=== PATIENT | female | born 1975 | race Caucasian/White ===

== ENCOUNTER 2023-04-19 21:08 | Inpatient (IN) | payer OTHER, SELFPAY ==
[2023-04-19 16:21] VITALS: BP 177/111
[2023-04-19 16:48] LABS: % Basophils 0.3 % (0-2); % Eosinophils 0.6 % (0-6); % Immature Granulocytes 0.3 % (0-0.5); % Monocytes 5.4 % (1.7-9.3); % Neutrophils 75.4 % (42.2-75.2); Absolute Eosinophils 0.1 10^3/uL (0-0.7); Absolute Lymphocytes 2.4 10^3/uL (1.2-3.4); Absolute Monocytes 0.7 10^3/uL (0.1-0.6); Absolute Neutrophils 10.1 10^3/uL (1.4-6.5); Hematocrit 42.5 % (37.0-47.0); Hemoglobin 14.3 g/dL (12.0-16.0); Mean Corp Hgb Conc. 33.6 g/dL (33.0-37.0); Mean Corpuscular Hgb 29.4 pg (27.0-31.0); Mean Corpuscular Volume 87.4 fL (81.0-99.0); Mean Platelet Volume 8.7 fL (7.4-10.4); Nucleated Red Blood Cells % 0 %; Platelet Count 428 10^3/uL (130-400); Red Blood Cell Count 4.86 10^6/uL (4.20-5.40); Red Cell Dist. Width 14.1 % (11.5-14.5); White Blood Cell Count 13.4 10^3/uL (4.8-10.8)
[2023-04-19 17:00] LABS: APTT 26.9 Sec (23.4-35.0)
[2023-04-19 17:03] LABS: ALT (SGPT) 26 U/L (0-35); AST (SGOT) 28 U/L (14-36); Albumin 4.7 g/dl (3.5-5.0); Alkaline Phosphatase 93 U/L (38-126); Blood Urea Nitrogen 18 mg/dl (7-17); Calcium 10.1 mg/dl (8.4-10.2); Carbon Dioxide 21 mmol/L (22-30); Chloride 101 mmol/L (98-107); Glucose 319 mg/dl (70-99); Potassium 4.8 mmol/L (3.5-5.1); Sodium 136 mmol/L (135-145); Total Bilirubin 0.3 mg/dl (0.2-1.3); Total Protein 7.5 g/dl (6.3-8.2); eGFR > 60.00
[2023-04-19 17:15] LABS: Troponin I < 0.012 ng/ml
[2023-04-19 19:23] VITALS: BMI 20.1
[2023-04-19 19:26] VITALS: BP 210/93
--- NOTE | 2023-04-19 19:27 | ED.GENMED ---
History of Present Illness
General
Chief Complaint: Numbness
Source: patient, records (Prior PFO closure) and spouse
Exam Limitations: none
Time Seen by Provider: 04/19/23 19:07
Nursing documentation reviewed up to this point in time: agreed with
Travel History
Have you had any contact with someone who has COVID-19?: No
Do you have any symptoms of coronavirus? Fever > 100 degrees, chills, cough, shortness of breath, sore throat, loss of taste or smell, muscle aches, or headache?: No
History of Present Illness
History of Present Illness:
47-year-old female presents emergency department due to numbness in her left arm since noon. She notes that it is somewhat dissipating. She denies any other symptoms.
Past History
Past History
ED Past Medical History: CVA, HTN, Hypercholesterolemia, NIDDM and Other (migraines); Negative CAD
ED Past Surgical History:
Social History
Tobacco: Smoker
Alcohol: None
Drug: None
Personal:
Living: with family
Employment: Employed
Family History
Family History: Adopted
Review of Systems
Review of Systems
Allergies reviewed?: Yes
All Other Systems: Not applicable
Constitutional: Reports no symptoms
EENT: Reports no symptoms
Respiratory: Reports no symptoms
Cardiac: Reports no symptoms
ABD/GI: Reports no symptoms
: Reports no symptoms
Musculoskeletal: Reports no symptoms
Skin: Reports no symptoms
Neurological: Reports numbness
Endocrine: Reports no symptoms
Hematologic/Lymphatic: Reports no symptoms
Psychiatric: Reports no symptoms
Phy Exam
Physical Exam
Physical Exam:
Physical Exam
General: no apparent distress, not acutely ill
Neck: supple. no meningeal signs. normal posterior pharynx
Heart: s1/s2 regular rate and rhythm, no murmur. equal radial
pulses.
HEENT: Pupils equal round reactive to light, EOMI
Lungs: no acute respiratory distress. clear bilaterally
Abdomen: normal bowel sounds. not tender. no CVAT
Neuro: alert and oriented. no focal neurological deficits cranial nerves II through XII intact
Skin: no rash
Psychiatric: well kept. interactive and cooperative
Extremities: no edema. no calf tenderness. negative homans. good distal pulses
Scores
NIH Stroke Score
Level of Consciousness: 0 - Alert
LOC Questions: 0-Answers both correctly
LOC Commands: 0-Performs both correctly
Best Horizontal Gaze: 0-Normal
Visual Lewis: 0=Normal, no visual loss
Facial Palsy: 0=Normal, symmetrical
Motor - Right Arm: 0=No drift 10 seconds
Motor - Left Arm: 0=No drift 10 seconds
Motor - Right Le-No drift 5 seconds
Motor - Left Le-No drift 5 seconds
Limb Ataxia: 0-Absent
Sensation: 0-Normal
Best Language: 0-No aphasia
Dysarthria: 0-Normal
Extinction and Inattention: 0-No abnormality
Total Score:: 0
Course
Orders/Labs/Results
Orders:
Orders
04/19/23 16:25
Electrocardiogram (*1) Urgent
Reason for Study: Other
Other Reason for Exam: Possible Stroke
CT Head W/o Iv Contrast Urgent
Comment:
Reason For Exam: numbness
EKG- Treatment ONCE
04/19/23 16:39
Complete Blood Count/With Diff Urgent
Comprehensive Metabolic Panel Urgent
PTT Urgent
Prothrombin Time Urgent
Troponin I Urgent
04/19/23 20:05
Aspirin Chewable [Low Strength Aspirin] 324 mg PO NOW STA
Clopidogrel Bisulfate [Plavix] 75 mg PO NOW STA
Labetalol HCl [Trandate] 10 mg IV NOW STA
04/19/23 20:06
Atorvastatin [Lipitor] 80 mg PO NOW STA
04/19/23 20:57
Admit/Transfer Patient As Directed
Co-Sign Provider:
Level of Care: Inpatient admission
Assign to:: Telemetry
Physician / Group: morena
Diagnosis: TIA/CVA
Reason for Telemetry: CVA/TIA
Date to Stop Telemetry: 04/22/23
Time to Stop Telemetry: 11:00
Reason for Hospitalization: TIA/CVA
Expected length of stay greater than two midnights?: Yes
ELOS- Estimated Length of Stay in days: 2
I certify the patient meets the requirements for IP care: Yes
04/19/23 20:58
Code Status As Directed
Resuscitation Status: Full Code
04/19/23 21:01
Labetalol HCl [Trandate] 10 mg IV Q6HPRN PRN
04/19/23 21:08
NEUROLOGY CONSULT Routine
Consulting Provider: Bre Saravia
Was physician already notified: Yes
04/22/23 11:00
DC Protocol for Telemetry ONCE
Abnormal Lab Results
04/19/23
16:39
WBC 13.4 H 10^3/uL
(4.8-10.8)
Plt Count 428 H 10^3/uL
(130-400)
Absolute Neuts (auto) 10.1 H 10^3/uL
(1.4-6.5)
Absolute Monos (auto) 0.7 H 10^3/uL
(0.1-0.6)
Neutrophils % 75.4 H %
(42.2-75.2)
Lymphocytes % 18.0 L %
(20.5-51.1)
Carbon Dioxide 21 L mmol/L
(22-30)
BUN 18 H mg/dl
(7-17)
Glucose 319 H mg/dl
(70-99)
04/19/23 16:39
04/19/23 16:39
Vital Signs
Initial and Last Documented VS:
Initial Vital Signs
Temp Pulse Resp BP Pulse Ox
97.7 F 125 18 177/111 98
04/19/23 16:21 04/19/23 16:21 04/19/23 16:21 04/19/23 16:21 04/19/23 16:21
Last Documented Vital Signs
Temp Pulse Resp BP Pulse Ox
97.7 F 88 18 176/98 98
04/19/23 16:21 04/19/23 21:30 04/19/23 21:30 04/19/23 21:00 04/19/23 20:15
MDM/Problems Addressed
Differential Diagnosis Includes:
Acute CVA
MDM/Problems Addressed:
47-year-old female with likely acute CVA versus TIA. Discussed with neurology, who recommends aspirin and Plavix, and high-dose statin. Initially admitted patient to hospitalist, and she left AGAINST MEDICAL ADVICE. Precautions given.
Chronic conditions affecting care: DM and Neurological disorder (Prior CVA)
Acute Exacerbation and/or Progression of Chronic Illness: DM and Neurological disorder (Prior CVA)
*Radiology
Radiology exam reviewed: radiology read reviewed (CT head no acute findings)
*Pulse Oximetry
Patient hypoxic: no
*EKG
Interpreted by ED Provider?: Yes
EKG Intrepretation Date: 04/20/23
EKG Intrepretation Time: 16:42
Interpretation: abnormal
Comparison EKG: no changes
Heart Rate: 103
Rate: tachycardiac
Rhythm: sinus tachycardia
[place]: normal axis
Interval: normal interval
QRS Pattern: normal QRS
Ischemia: no ischemia
*Inner Diameter Grinder Tool Interpretation
Rate: tachycardiac
Interpretation: abnormal
Heart Rate: 102
Rhythm: sinus tachycardia
*Critical Care Note
Total Time (30-74mins, 75-104mins- exclusive of procedures): Not Applicable
Data Reviewed
Review of Other/Old Records Reveals: Radiology Studies
Source: records (prior mri shows left internal capsule infarct)
Prescriptions/Medications Considered But Not Given:
tnk not indicated
Patient Management
Social determinants of health affecting care: Living situation and Substance abuse
Discussion with other providers: Hospitalist and Watermaster (neurology Dr. Saravia)
Escalation/DeEscalation of care consider admission/obs:
admit indicated, patient left AMA
ED Attending Note
-
Portions of this chart may have been created with voice recognition software.� Occasional wrong word or��sound alike� substitutions may have occurred due to the inherent limitations of voice recognition software.
Discharge Plan
Departure
Patient Disposition: Against Medical Advice
Date of Disposition: 04/19/23
Time of Disposition: 22:13
Patient with high blood pressure during this ER visit?: Yes
Condition: Good
Discharge Problem:
Acute CVA (cerebrovascular accident), Hypertensive urgency, malignant
Interventions
Interventions:
*Risk Screen - Suicide Last Done: 04/19/23 19:27
*General Assessment Last Done: 04/19/23 16:21
*Neglect/Abuse Screening Last Done: 04/19/23 19:27
ED- Fall Risk Assessment Last Done: 04/19/23 19:15
*ED COVID-19 Vaccine History Last Done: 04/19/23 16:21
*Nursing Disposition Last Done: 04/19/23 22:15
ED- Neurological Assessment Last Done: 04/19/23 19:18
Discharge Date and Time
Discharge Date/Time: 04/19/23 22:18
[2023-04-19 20:00] VITALS: BP 174/93
[2023-04-19] MEDS: LOW STRENGTH ASPIRIN 324 MG PO (20:11)
[2023-04-19] MEDS: TRANDATE 10 MG IV (20:11)
[2023-04-19] MEDS: PLAVIX 75 MG PO (20:11)
[2023-04-19 21:00] VITALS: BP 176/98
--- NOTE | 2023-04-19 21:06 | HPS.HSE ---
Family Physician
-
Family Physician: Kurtis López, DO
Chief Complaint
-
numbness left forearm
History of Present Illness
47-year-old female past medical history of left internal capsule cryptogenic CVA in 2019, PFO status post PFO closure in 2020, migraines, hypertension, type 2 diabetes, tobacco use disorder, presenting with numbness in her left arm since 12 PM.
Numbness primarily in the left forearm to the shoulder without involving the hand. She also had some weakness with slope tender strength. Symptoms resolved after 6 hours.
She did have a migraine this morning which resolved after she took a nap. She denies any blurry vision, balance dysfunction, difficulty speaking or swallowing.
Patient states that her blood sugar was in the 300s today. She has a Dexcom and her blood sugars tend to be higher in the morning and also fluctuate.
Patient was found strokes on brain imaging performed in 2019 to evaluate migraine. She did not have any symptoms at that time. She was found to have PFO at that time and underwent PFO closure. She also had a loop recorder afterwards which did not
show any cardiac events and it was eventually removed.
She smokes 5 cigarettes a day. She drinks alcohol occasionally. She denies marijuana or any drugs.
Medical History
Past Medical History
Past Medical History: Reports Other (left internal capsule cryptogenic CVA in 2019, PFO status post PFO closure in 2020, migraines, hypertension, type 2 diabetes, tobacco use disorder)
Past Surgical History: Reports Other (PFO closure )
Social History
Tobacco: Smoker
Alcohol: Occasional
Drug: None
Family History
Family History: Not pertinent
Allergies / Home Medications
Allergies reflects when Allergies were last updated in [employer].
Home Medications with original date entered in [employer]
Allergy/Medication List:
Allergies
Allergy/AdvReac Type Severity Reaction Status Date / Time
No Known Allergies Allergy Verified 04/19/23 16:23
Home Medications
diphenhydramine HCl 25 mg capsule (ZzzQuil) 50 mg PO HS Sleep ##0 06/22/20
insulin glargine 100 unit/mL (3 mL) subcutaneous pen (Lantus Solostar U-100 Insulin) 5 units SC HS 08/19/21
metformin 500 mg tablet 500 mg PO BID@0800,1700 Diabetes 08/19/21
repaglinide 2 mg tablet 4 mg PO .AFTER MEALS 08/19/21
rosuvastatin 10 mg tablet 10 mg PO DAILY 08/19/21
cyanocobalamin (vitamin B-12) 1,000 mcg sublingual tablet 1,000 mcg sublingual DAILY 11/20/21
diphenhydramine HCl 25 mg capsule (Benadryl) 75 mg PO HSPRN PRN sleep 11/20/21
naratriptan 2.5 mg tablet 2.5 mg PO BID PRN migraine 04/19/23
rimegepant 75 mg disintegrating tablet (Nurtec ODT) 75 mg PO Q48H 04/19/23
Review of Systems
-
History Source: Patient
A 12 point ROS was completed and negative except as noted: Yes
Constitutional: Reports No Symptoms
EENT: Reports No Symptoms
Respiratory: Reports No Symptoms
Cardiac: Reports No Symptoms
Abdomen/GI: Reports No Symptoms
: Reports No Symptoms
Musculoskeletal: Reports No Symptoms
Skin: Reports No Symptoms
Neurological: Reports See HPI
Endocrine: Reports No Symptoms
Hematologic/Lymphatic: Reports No Symptoms
Psych: Reports No Symptoms
Physical Exam
Vital Signs
Vital Signs
Temp Pulse Resp BP Pulse Ox
97.7 F 101 18 174/93 98
04/19/23 16:21 04/19/23 20:15 04/19/23 20:15 04/19/23 20:00 04/19/23 20:15
Physical Exam
General: Well Developed, Well Nourished and No Apparent Distress
HEENT: NormoCephalic, Moist mucous membranes and Atraumatic
Respiratory: Clear
Cardiac: S1/S2 and Regular Rhythm; No Murmur or Rub
GI: Soft, Non Tender, Non Distended and Normal Bowel Sounds; No Organomegaly
Rectal: Deferred by Provider
Musculoskeletal: No Clubbing, No Cyanosis and No Edema
Skin: No Rash
Neuro: Nonfocal/grossly intact
Laboratory Results
-
04/19/23 16:39
04/19/23 16:39
Laboratory Results
PT 13.0 Sec (11.4-14.6) 04/19/23 16:39
INR 1.00 04/19/23 16:39
APTT 26.9 Sec (23.4-35.0) 04/19/23 16:39
Total Bilirubin 0.3 mg/dl (0.2-1.3) 04/19/23 16:39
AST 28 U/L (14-36) 04/19/23 16:39
ALT 26 U/L (0-35) 04/19/23 16:39
Alkaline Phosphatase 93 U/L (38-126) 04/19/23 16:39
Troponin I < 0.012 ng/ml 04/19/23 16:39
Data Reviewed
-
Lab Data: Labs Reviewed by me
Old Records: Reviewed
Impression/Plan
-
IMPRESSION:
PLAN:
# TIA vs possible CVA
# History of cryptogenic left internal capsule CVA in 2019
# PFO status post PFO closure
-CT head shows no acute abnormality
- Aspirin and Plavix given, continue daily
-80 mg atorvastatin started
-Check A1c and lipid panel
-Check MRI/MRA head and neck
-Neurology consulted
# Hypertensive urgency
-IV labetalol given
-Permissive hypertension up to 220/110 until tomorrow
-No longer on blood pressure medications which she was previously on
History of migraines
-Continue Nurtec
-Continue as needed naratriptan
-Continue nightly Benadryl
# Hyperglycemia
#Type 2 diabetes
-Check hemoglobin A1c
-Continue metformin
-Continue Lantus 5 units
-Hold repaglinide with meals
-Insulin sliding scale instead
Tobacco use disorder
-Smokes 5 cigarettes a day
-Nicotine patch
B12 deficiency
-Continue B12
Full code
DVT prophylaxis�SCDs
Regular diet
== END 2023-04-19 22:20 | disposition left against medical advice (07) | DRG 66 ==
LOC: ED 21:08
PROVIDERS: Emergency Medicine; ADMITTING PHYSICIAN Hospitalist; EMERGENCY PHYSICIAN Emergency Medicine; FAMILY PHYSICIAN Family Medicine
DX: I63.9 Cerebral infarction, unspecified (principal); I16.0 Hypertensive urgency; F17.210 Nicotine dependence, cigarettes, uncomplicated; E11.65 Type 2 diabetes mellitus with hyperglycemia; E53.8 Deficiency of other specified B group vitamins; I10 Essential (primary) hypertension
CPT/HCPCS: 70450; 80053; 84484; 85025; 85610; 85730; 93005; 96374; 99285

== ENCOUNTER 2023-04-24 22:15 | Inpatient (IN) | payer OTHER, SELFPAY ==
[2023-04-24] VITALS (8 sets, daily range): BP systolic 163–201; BP diastolic 82–99
[2023-04-24 16:32] LABS: % Basophils 0.3 % (0-2); % Eosinophils 0.7 % (0-6); % Immature Granulocytes 0.4 % (0-0.5); % Lymphocytes 19.2 % (20.5-51.1); % Neutrophils 74.4 % (42.2-75.2); Absolute Eosinophils 0.1 10^3/uL (0-0.7); Absolute Immature Granulocytes 0.1 10^3/uL (0-0.05); Absolute Lymphocytes 2.7 10^3/uL (1.2-3.4); Absolute Monocytes 0.7 10^3/uL (0.1-0.6); Absolute Neutrophils 10.3 10^3/uL (1.4-6.5); Hematocrit 40.1 % (37.0-47.0); Hemoglobin 13.4 g/dL (12.0-16.0); Mean Corp Hgb Conc. 33.4 g/dL (33.0-37.0); Mean Corpuscular Hgb 29.1 pg (27.0-31.0); Mean Corpuscular Volume 87.2 fL (81.0-99.0); Mean Platelet Volume 8.7 fL (7.4-10.4); Nucleated Red Blood Cells % 0 %; Platelet Count 430 10^3/uL (130-400); White Blood Cell Count 13.8 10^3/uL (4.8-10.8)
[2023-04-24 16:43] LABS: ALT (SGPT) 25 U/L (0-35); AST (SGOT) 24 U/L (14-36); Albumin 4.4 g/dl (3.5-5.0); Alkaline Phosphatase 81 U/L (38-126); Blood Urea Nitrogen 17 mg/dl (7-17); Calcium 10.2 mg/dl (8.4-10.2); Carbon Dioxide 27 mmol/L (22-30); Chloride 97 mmol/L (98-107); Glucose 408 mg/dl (70-99); Potassium 5.4 mmol/L (3.5-5.1); Sodium 136 mmol/L (135-145); Total Bilirubin 0.4 mg/dl (0.2-1.3); Total Protein 7.1 g/dl (6.3-8.2); eGFR > 60.00
--- NOTE | 2023-04-24 19:01 | ED.GENMED ---
History of Present Illness
General
Chief Complaint: Numbness
Source: patient
Exam Limitations: none
Time Seen by Provider: 04/24/23 18:47
Travel History
Have you had any contact with someone who has COVID-19?: No
Do you have any symptoms of coronavirus? Fever > 100 degrees, chills, cough, shortness of breath, sore throat, loss of taste or smell, muscle aches, or headache?: No
History of Present Illness
History of Present Illness:
This is a 47 year old female that comes in with c/o right sided arm numbness. States that she was here on Saturday with Left sided arm numbness and they wanted her to stay but she left. State that this started last night and has continued. States that
she awoke this morning with a Migraine and she took Excedrin, Tylenol and Naratriptan and he headache is gone. Denies any fever, chills, chest pain, SOB, abd pain, nausea, vomiting, diarrhea, dizziness, urinary burning.
Past History
Past History
ED Past Medical History: CVA (X 2), HTN, Hypercholesterolemia, IDDM and Other (migraines); Negative CAD
ED Past Surgical History: Cardiac (Loop recorder and then it was removed, Closure of PFO), , Gynecological (Lap for precancerous cervical cells, ) and Orthopedic (Left great toe surgery, )
Social History
Tobacco: Smoker
Alcohol: Occasional
Drug: None
Personal:
Living: with family
Employment: Employed
Family History
Family History: Adopted
Review of Systems
Review of Systems
All Other Systems: ROS reviewed and negative except as documented in HPI and ROS
Constitutional: Reports no symptoms; Denies fever or chills
EENT: Reports no symptoms
Respiratory: Reports no symptoms; Denies cough or trouble breathing
Cardiac: Reports no symptoms; Denies chest pain
ABD/GI: Reports no symptoms; Denies abdominal pain, nausea, vomiting or diarrhea
: Reports no symptoms; Denies dysuria, frequency or urgency
Musculoskeletal: Reports no symptoms
Skin: Reports no symptoms
Neurological: Reports headache and numbness (Right arm)
Psychiatric: Reports no symptoms
Phy Exam
General Physical Exam
General Presentation: well appearing and no apparent distress
General age: appears stated age
General Skin: warm and dry
General Habitus: normal
General Mental: alert
General Hydration: appears well hydrated
ENT Exam
ENT Exam: TM's normal, pharynx normal and neck supple
Eye Exam
Eye Exam: EOMI
Cardiovascular Exam
Cardiovascular Exam: regular rate/rhythm, no edema, no JVD, no murmur and normal peripheral pulses
Pulmonary Exam
Pulmonary Exam: lungs clear, no respiratory distress, no rales, chest non tender, no crackles, no rhonchi, no wheezing and no cough
Gastrointestinal Exam
Gastrointestinal Exam: normal bowel sounds, non tender, soft, no organomegaly, no pulsatile mass and non distended
NIH Stroke Score
Level of Consciousness: 0 - Alert
LOC questions: 0-Answers both correctly
LOC Commands: 0-Performs both correctly
Best Gaze: 0-Normal
Visual Lewis: 0=Normal, no visual loss
Facial palsy: 0=Normal, symmetrical
Motor - Right Arm: 0=No drift 10 seconds
Motor - Left Arm: 0=No drift 10 seconds
Motor - Right Le-No drift 5 seconds
Motor - Left Le-No drift 5 seconds
Limb Ataxia: 0-Absent
Sensation: 0-Normal
Best Language: 0-No aphasia
Dysarthria: 0-Normal
Extinction and Inattention: 0-No abnormality
Total Score:: 0
Musculoskeletal Exam
Musculoskeletal Exam: full ROM, no edema and other (Hand grasp and push pulls equal)
Skin Exam
Skin Exam: normal color, warm/dry, no rash and no petechia
Psychiatric Exam
Psychiatric Exam: normal mood/affect
Course
Orders/Labs/Results
Orders:
Orders
04/24/23 16:05
Electrocardiogram (*1) Urgent
Reason for Study: Chest Pain
EKG- Treatment ONCE
04/24/23 16:22
Complete Blood Count/With Diff Urgent
Comprehensive Metabolic Panel Urgent
04/24/23 19:00
0.9% Sodium Chloride 1000 ml [Nss] 1,000 ml IV BOLUS
04/24/23 19:01
CT Head W/o Iv Contrast Urgent
Comment:
Reason For Exam: Right arm numbness
04/24/23 20:28
Aspirin 325 mg PO NOW STA
Clopidogrel Bisulfate [Plavix] 300 mg PO NOW STA
04/24/23 20:30
Consult Neurology [NEUROLOGY CONSULT] Urgent
Consulting Provider: Ubaldo Benavides
Was physician already notified: Yes
04/24/23 21:02
MR Brain W/o & With Contrast Routine
Comment:
Reason For Exam: Eval ? left frontal infarct, Ddx MS
Recent pill cam endoscopy?: No
04/24/23 21:03
MA [facility] Wo Routine
Comment:
Reason For Exam: intracranial stenosis
Recent pill cam endoscopy?: No
MA Neck With & W/o Contrast Routine
Comment:
Reason For Exam: stenosis
Recent pill cam endoscopy?: No
04/24/23 21:05
Echo 2D MMode Color/Doppler Routine
Reason for Study: Thrombotic source for stroke-like sxs
NIH Stroke Scale As Directed
Neurological Checks As Directed
Frequency: Per unit guidelines
04/24/23 21:46
Admit/Transfer Patient As Directed
Co-Sign Provider:
Level of Care: Inpatient admission
Assign to:: Telemetry
Physician / Group: veldanda
Diagnosis: cva
Reason for Telemetry: CVA/TIA
Date to Stop Telemetry: 04/27/23
Time to Stop Telemetry: 11:00
Reason for Hospitalization: cva
Expected length of stay greater than two midnights?: Yes
ELOS- Estimated Length of Stay in days: 2
I certify the patient meets the requirements for IP care: Yes
Code Status As Directed
Resuscitation Status: Full Code
04/24/23 21:55
Labetalol HCl [Trandate] 10 mg IV NOW STA
04/24/23 21:57
Labetalol HCl [Trandate] 10 mg IV Q6HPRN PRN
04/24/23 22:00
Atorvastatin [Lipitor] 80 mg PO QPM
Flush (0.9% Sodium Chloride) [Flush (Nss)] See Dose Instructions IV PER PROTOCOL
04/24/23 22:41
Acetaminophen [Tylenol/Feverall] 650 mg RECTAL Q4HPRN PRN
Acetaminophen [Tylenol] 650 mg PO Q4HPRN PRN
Dextrose 50%-Water [Dextrose 50% Syringe] 12.5 grams IV [id number] PRN
Diphenhydramine [Benadryl] 50 mg PO HS
Diphenhydramine [Benadryl] 75 mg PO HSPRN PRN
Glucagon [GlucaGen] 1 mg IM PRN PRN
insulin glargine [Lantus Solostar U-100 Insulin] 5 units SC HS
naratriptan 0 mg PO BIDPRN PRN
04/24/23 22:41
Glycohemoglobin (HgbA1c) Routine
Activity As Directed
Activity Level: As Tolerated
Bedside Glucose Monitoring As Directed
Frequency: AC&HS
Comment: Change to q6h if pt on TPN, tube feeding or not eating
NIH Stroke Scale As Directed
Directions: Per protocol
Comment: every shift and with any change in condition or mental status
Neurological Checks As Directed
Frequency: q4h
Additional Instructions:: q4h x 24h upon admission to the floor, then qshift & with any change in condition
and mental status
Patient Education As Directed
Type: Stroke education packet
Comment: provide to patient and family
Pneumatic Compression Sleeves As Directed
Type: Knee high
Vital Signs As Directed
Frequency: Per unit guidelines
DX Deep Vein Thrombosis Video Routine
04/25/23 06:00
[id number] Panel [S] IN AM
Cardiolipin Ab Panel [S] IN AM
Cardiovascular Evaluation IN AM
Complete Blood Count/With Diff IN AM
04/25/23 07:30
Insulin Aspart Corrective Low [Novolog Flexpen-Low Resistance] See Protocol SC AC
04/25/23 08:00
Aspirin Chewable [Low Strength Aspirin] 81 mg PO DAILY
Clopidogrel Bisulfate [Plavix] 75 mg PO DAILY
Cyanocobalamin [Vitamin B-12] 1,000 mcg PO DAILY
METFORMIN HCl [Glucophage] 500 mg PO BID@0800,1700
04/25/23 09:00
Repaglinide [Prandin] 4 mg PO PC
04/26/23 08:00
rimegepant [Nurtec ODT] 0 mg PO Q48H
04/27/23 11:00
DC Protocol for Telemetry ONCE
Abnormal Lab Results
04/24/23
16:22
WBC 13.8 H 10^3/uL
(4.8-10.8)
Plt Count 430 H 10^3/uL
(130-400)
Abs Immat Gran (auto) 0.1 H 10^3/uL
(0-0.05)
Absolute Neuts (auto) 10.3 H 10^3/uL
(1.4-6.5)
Absolute Monos (auto) 0.7 H 10^3/uL
(0.1-0.6)
Lymphocytes % 19.2 L %
(20.5-51.1)
Potassium 5.4 H mmol/L
(3.5-5.1)
Chloride 97 L mmol/L
(98-107)
Glucose 408 H mg/dl
(70-99)
04/24/23 16:22
04/24/23 16:22
Leukocytosis, Plt slightly elevated. Hyperkalemia, Chloride slighlty low. Glucose nonfasting. Anion gap 12
Vital Signs
Initial and Last Documented VS:
Initial Vital Signs
Temp Pulse Resp BP Pulse Ox
98.8 F 105 20 177/99 96
04/24/23 15:58 04/24/23 15:58 04/24/23 15:58 04/24/23 15:58 04/24/23 15:58
Last Documented Vital Signs
Temp Pulse Resp BP Pulse Ox
98.8 F 95 16 170/90 96
04/24/23 15:58 04/25/23 00:45 04/25/23 00:45 04/25/23 00:37 04/25/23 00:45
MDM/Problems Addressed
Differential Diagnosis Includes:
CVA, Parasthesias
MDM/Problems Addressed:
This is a 47 year old female that comes in with c/o right arm numbness. States that she was her on Saturday with left arm numbness and they wanted to keep patient but she went home. Today she awoke with a migraine and then started with left arm
numbness.
Will check labs, CT head and then speak to Neurologist.
Back into see patient. Explained that the CT is questionable about a new area of Infarct. Will admit patient for further evaluation and MRI. Hospitalist and Neurologist notified.
Chronic conditions affecting care: Other (CVA)
Acute Exacerbation and/or Progression of Chronic Illness: Other (CVA)
*Radiology
Radiology exam reviewed: radiology read reviewed (CT small focus of hypoattenuation in the left frontal lobe periventricular white matter, possible chronic although cannot rule out subacute white matter infarct and MRI would be of greater
sensitivity, if Clinically Indicated. NO acute transcortical infarct or hemorrhage by CT. )
*Pulse Oximetry
Patient hypoxic: no
*EKG
Interpreted by ED Provider?: Yes
Heart Rate: 104
Rate: tachycardiac
Rhythm: sinus
[place]: normal axis
Interval: normal interval
QRS Pattern: normal QRS
Ischemia: no ischemia
*Wall And Floor Tiler Interpretation
Rate: Wall And Floor Tiler- N/A
*Critical Care Note
Total Time (30-74mins, 75-104mins- exclusive of procedures): Not Applicable
ED Attending Note
-
Portions of this chart may have been created with voice recognition software.� Occasional wrong word or��sound alike� substitutions may have occurred due to the inherent limitations of voice recognition software.
Discharge Plan
Departure
Patient Disposition: Admit
Date of Disposition: 04/24/23
Time of Disposition: 20:30
Admit to: Med/Surg
Presentation/result/management discussed w/ accepting MD/DO: Hospitalist
Patient with high blood pressure during this ER visit?: Yes
Condition: Good
Covid-19: Not Applicable
Discharge Problem:
Right arm numbness, Possible CVA, Hyperglycemia
Interventions
Interventions:
*Risk Screen - Suicide Last Done: 04/24/23 15:58
*General Assessment Last Done: 04/24/23 15:58
*Neglect/Abuse Screening Last Done: 04/24/23 15:58
ED- Fall Risk Assessment Last Done: 04/24/23 20:09
*ED COVID-19 Vaccine History Last Done: 04/24/23 20:09
*Nursing Disposition Last Done: 04/25/23 00:16
ED- Neurological Assessment Last Done: 04/25/23 00:47
[2023-04-24] MEDS: NSS 1000 IV (19:39)
[2023-04-24] MEDS: ASPIRIN 325 MG PO (20:56)
[2023-04-24] MEDS: PLAVIX 300 MG PO (20:56)
--- NOTE | 2023-04-24 21:52 | HPS.HSE ---
Family Physician
-
Family Physician: Kurtis López, DO
Chief Complaint
-
right arm weakness
History of Present Illness
47-year-old female past medical history of left internal capsule cryptogenic CVA in 2019, PFO status post PFO closure in 2020, migraines, hypertension, type 2 diabetes, tobacco use disorder, who came to the emergency room 5 days ago for left arm
numbness and weakness which resolved after 6 hours. Patient left from the emergency room despite being urged to stay.
Patient states today she developed right arm numbness unlike last time and she again woke up this morning with a migraine and took Excedrin, Tylenol and naratriptan and now headache is gone. The numbness is currently improved. She denies any
visual symptoms, focal weakness, dizziness, difficulty speaking or swallowing, gait dysfunction.
Patient was found strokes on brain imaging performed in 2019 to evaluate migraine. She did not have any symptoms at that time. She was found to have PFO at that time and underwent PFO closure. She also had a loop recorder afterwards which did not
show any cardiac events and it was eventually removed.
She smokes 5 cigarettes a day. She drinks alcohol occasionally. She denies marijuana or any drugs.
Medical History
Past Medical History
Past Medical History: Reports Other (Cardiac (Loop recorder and then it was removed, Closure of PFO), , Gynecological (Lap for precancerous cervical cells, ) and Orthopedic (Left great toe surgery, ))
Past Surgical History: Reports None
Social History
Tobacco: Smoker
Alcohol: Occasional
Drug: None
Family History
Family History: Not pertinent
Allergies / Home Medications
Allergies reflects when Allergies were last updated in [facility].
Home Medications with original date entered in [facility]
Allergy/Medication List:
Allergies
Allergy/AdvReac Type Severity Reaction Status Date / Time
No Known Allergies Allergy Verified 04/19/23 16:23
Home Medications
diphenhydramine HCl 25 mg capsule (ZzzQuil) 50 mg PO HS Sleep ##0 06/22/20
insulin glargine 100 unit/mL (3 mL) subcutaneous pen (Lantus Solostar U-100 Insulin) 5 units SC HS 08/19/21
metformin 500 mg tablet 500 mg PO BID@0800,1700 Diabetes 08/19/21
repaglinide 2 mg tablet 4 mg PO .AFTER MEALS 08/19/21
rosuvastatin 10 mg tablet 10 mg PO DAILY 08/19/21
cyanocobalamin (vitamin B-12) 1,000 mcg sublingual tablet 1,000 mcg sublingual DAILY 11/20/21
diphenhydramine HCl 25 mg capsule (Benadryl) 75 mg PO HSPRN PRN sleep 11/20/21
naratriptan 2.5 mg tablet 2.5 mg PO BID PRN migraine 04/19/23
rimegepant 75 mg disintegrating tablet (Nurtec ODT) 75 mg PO Q48H 04/19/23
Review of Systems
-
History Source: Patient
A 12 point ROS was completed and negative except as noted: Yes
Constitutional: Reports No Symptoms
EENT: Reports No Symptoms
Respiratory: Reports No Symptoms
Cardiac: Reports No Symptoms
Abdomen/GI: Reports No Symptoms
: Reports No Symptoms
Musculoskeletal: Reports No Symptoms
Skin: Reports No Symptoms
Neurological: Reports See HPI
Endocrine: Reports No Symptoms
Hematologic/Lymphatic: Reports No Symptoms
Psych: Reports No Symptoms
Physical Exam
Vital Signs
Vital Signs
Temp Pulse Resp BP Pulse Ox
98.8 F 95 18 180/92 98
04/24/23 15:58 04/24/23 21:36 04/24/23 21:36 04/24/23 21:36 04/24/23 20:23
Physical Exam
General: Well Developed, Well Nourished and No Apparent Distress
HEENT: NormoCephalic, Moist mucous membranes and Atraumatic
Respiratory: Clear
Cardiac: S1/S2 and Regular Rhythm; No Murmur or Rub
GI: Soft, Non Tender, Non Distended and Normal Bowel Sounds; No Organomegaly
Rectal: Deferred by Provider
Musculoskeletal: No Clubbing, No Cyanosis and No Edema
Skin: No Rash
Neuro: Nonfocal/grossly intact
Laboratory Results
-
04/24/23 16:22
04/24/23 16:22
Laboratory Results
Total Bilirubin 0.4 mg/dl (0.2-1.3) 04/24/23 16:22
AST 24 U/L (14-36) 04/24/23 16:22
ALT 25 U/L (0-35) 04/24/23 16:22
Alkaline Phosphatase 81 U/L (38-126) 04/24/23 16:22
Data Reviewed
-
Lab Data: Labs Reviewed by me
Old Records: Reviewed
Impression/Plan
-
IMPRESSION:
PLAN:
# Likely new CVA/TIA
# History of cryptogenic left internal capsule CVA in 2019
# PFO status post PFO closure
-CT head shows small focus of hypoattenuation in the left frontal lobe periventricular white matter possibly chronic although cannot rule out subacute white matter infarct
- Aspirin and Plavix given, continue daily
-80 mg atorvastatin started
-Check A1c and lipid panel
-Check MRI/MRA head and neck
-echo
-Neurology consulted
# Hypertensive urgency
-IV labetalol to be given
-No longer on blood pressure medications which she was previously on
History of migraines
-Continue Nurtec
-Continue as needed naratriptan
-Continue nightly Benadryl
# Hyperglycemia
#Type 2 diabetes
-Blood sugar 400 which patient does not believe since sugar was 170 immediately after when she checked her Dexcom
-Check hemoglobin A1c
-Continue metformin
-Continue Lantus 5 units
-Continue repaglinide
-Insulin sliding scale
# Hyperkalemia possibly secondary to insulin deficiency
-IV fluids given
Tobacco use disorder
-Smokes 5 cigarettes a day
-Nicotine patch
B12 deficiency
-Continue B12
Insomnia
-Continue Benadryl
Full code
DVT prophylaxis�SCDs
Diabetic Diet
[2023-04-24] MEDS: TRANDATE 10 MG IV (22:08)
--- NOTE | 2023-04-24 22:52 | EDRN ---
Pt. requesting to take own home metformin and repeglanide as pharmacy still processing her nighttime meds, admitting aware and okay with this, pt. took home metformin and repeglanide.
[2023-04-24] MEDS: BENADRYL 50 MG PO (23:50)
[2023-04-24] MEDS: LANTUS 0.0500000000000000028 UNITS SC (23:50)
[2023-04-25] VITALS (7 sets, daily range): BP systolic 170–193; BP diastolic 81–97; BMI 19.0; BMI 19.4
[2023-04-25] MEDS: TRANDATE 10 MG IV ×2 (04:30→11:57)
[2023-04-25] MEDS: TYLENOL 650 MG PO ×2 (04:43→11:57)
[2023-04-25 04:50] LABS: % Basophils 0.4 % (0-2); % Eosinophils 1.3 % (0-6); % Immature Granulocytes 0.4 % (0-0.5); % Lymphocytes 28.4 % (20.5-51.1); % Monocytes 5.6 % (1.7-9.3); % Neutrophils 63.9 % (42.2-75.2); Absolute Basophils 0.1 10^3/uL (0-0.2); Absolute Eosinophils 0.2 10^3/uL (0-0.7); Absolute Immature Granulocytes 0.1 10^3/uL (0-0.05); Absolute Lymphocytes 4.2 10^3/uL (1.2-3.4); Absolute Monocytes 0.8 10^3/uL (0.1-0.6); Absolute Neutrophils 9.3 10^3/uL (1.4-6.5); Hemoglobin 12.5 g/dL (12.0-16.0); Mean Corp Hgb Conc. 33.8 g/dL (33.0-37.0); Mean Corpuscular Hgb 29.3 pg (27.0-31.0); Mean Corpuscular Volume 86.9 fL (81.0-99.0); Mean Platelet Volume 8.7 fL (7.4-10.4); Nucleated Red Blood Cells % 0 %; Platelet Count 389 10^3/uL (130-400); Red Blood Cell Count 4.26 10^6/uL (4.20-5.40); Red Cell Dist. Width 14.1 % (11.5-14.5); White Blood Cell Count 14.6 10^3/uL (4.8-10.8)
[2023-04-25 05:14] LABS: HDL Cholesterol 43 mg/dl; LDL Cholesterol, Calculated -4 mg/dl; Total Cholesterol 79 mg/dl (50-199); Triglyceride 202 mg/dl (10-149); Very Low Density Lipoprotein 40 mg/dl (0-30)
[2023-04-25 05:31] LABS: Glucose - Point of Care 187 mg/dl (70-99)
--- NOTE | 2023-04-25 07:28 | PTCARENOTE ---
Addendum entered by Анна Gibson RN 04/25/23 12:29:
Patient remains argumenative with RN. Attempted to educate patient on medications and when MRI will be completed. Patient arguing about every medication, accu check and neuro check that needs to be completed. Patient continuoulsy removing heart
monitor. Patient states if she does not go to MRI soon she will be leaving AMA. MRI called at this time-- MRI states they are unsure when her MRI will be and it may not be until tomorrow.
Addendum entered by Анна Gibson RN 04/25/23 10:06:
informed hospitalist of elevated blood pressure--informed RN that is okay with no new orders.
Addendum entered by Анна Gibson RN 04/25/23 09:20:
Patient remains extremely argumentation with RN. Patient refusing several medications and insulin at this time.
Original Note:
Patient called RN into room to discuss plan of care. Patients states, 'if I dont get my MRI very shortly I will be leaving'. Patient very agitated with RN as soon as she entered the room and kept threatening to leave. Patient also states, 'If you
dont get me something for my headache I will leave'. informed patient that RN will let doctors know about headache and high blood pressure. Patient states, 'I do not follow a strict diabetic diet so you better get this changed right now or else...'.
RN informed patient she would speak with admitting doctor and to please stop threatening.
--- NOTE | 2023-04-25 08:14 | CON.NEURO4 ---
Addendum entered and electronically signed by Ubaldo Benavides MD 04/25/23 13:44:
I saw and evaluated the patient reviewed the note by Emily Mcneal agree the findings the following comments:
47-year-old woman with a past medical history of previous ischemic stroke, PFO closure, tobacco use, uncontrolled diabetes mellitus, hypertension, chronic migraines presenting to hospital because of episode of left arm paresthesias last Saturday and
then right arm paresthesia this past Saturday. She had had a ER visit on 04/18 and was recommended come in the hospital did not agree to this. She does feel that the sensory symptoms have completely resolved at this point.
She reports that the left arm paresthesia Saturday lasted several hours and was not painful not associate with any neck or head pain or radiating pain into the left arm or hand or shoulder. The right arm paresthesia on Saturday also seem to last
several hours.
Patient reports chronic daily headaches for a long time now she had been on number of chronic migraine medications including Aimovig as well as Botox. She reports taking daily Excedrin migraine for a long time months to years.
Blood glucose elevated to low 400s in the ER with hemoglobin A1c of 10.5.
Neurologic examination shows normal mental status, normal cranial nerves, sensory exam intact to light touch in upper and lower extremities bilaterally, no muscle atrophy of the hands or limbs power is 5/5 throughout with no pronator drift
CT head noncontrast with left head of the basal ganglia and caudate area hypodensity representing possibly chronic microangiopathy versus age-indeterminate infarction. No hemorrhage:
Assessment: Left arm paresthesia lasting several hours and then a couple of days later right arm paresthesia lasting a few hours. Factors for stroke as well as previous stroke so a minor ischemic stroke is certainly a consideration. Her symptoms
have resolved. Duration for the symptoms seems a bit too long to be TIA. Alternatively the sensory changes could also be due to uncontrolled diabetes mellitus which can produce sensory change and neurologic symptoms purely due to hyperglycemia.
Her uncontrolled migraines can also produce sensory symptoms.
Has chronic migraine and probably has a degree of medication rebound headache given daily Excedrin use.
Uncontrolled vascular risk factors with diabetes, tobacco use.
Recommendations
-Discussed recommendation for brain MRI and MRA of the head and MRA of the neck
-Patient not agreeable to taking clopidogrel but is agreeable for taking aspirin 81 mg daily
-Discussed I would recommend against taking daily Excedrin for headache given this is likely producing an element of medication rebound headache
-Improve high blood pressure and diabetes with diet medications exercise etc.
We will follow
Original Note:
Documented by User: Emily Betancourt NP 04/25/23 13:19
Consultation - Neurology 4
-
CONSULTING PHYSICIAN: Saleem Benavides MD
REFERRING PHYSICIAN: ER/EILEEN Scanlon
DICTATED BY: EILEEN Melendez
DATE/TIME OF REQUEST: 04/24/23
DATE/TIME OF CONSULTATION: 04/25/23
Reason for Consultation: Numbness
History of Present Illness:
This is a 47-year-old right-handed female who has presented to the hospital with report of right arm numbness. Patient has been evaluated by our inpatient Neurology service several times in the past and was previously followed by Neurology .
[facility] as an outpatient but was discharged by our practice.
From previous evaluation by Dr. Saravia on 06/26/21:
'45-year-old female presents for evaluation for migraine headaches. She has had these since age 9. She has history of migraines that occur typically affecting the right side of her head; they can also affect the apex of her head and her temples;
it is sometimes worse on one side. She describes this as a dull pain at the base of first skull. The pain can be pulsatile or 'feeling like she's being stabbed with a knife.' Severity can be '10 or higher.' The migraines are associated with
photo/phonophobia. She can also have nausea/vomiting. Her migraines generally last all day and may only get better if she sleeps/rests in a dark room. Lately she has been having them every day. This month she has had a migraine every day. No visual
aura. No associated focal neurological deficits. Her daughter has migraine. She was adopted.�������
She was seen in the [facility] emergency room for her headache in March 2019. At that time she was treated with Benadryl and also required hydralazine for her blood pressure. BP was as high as 196/108. Head CT was read as no acute intracranial
abnormalities. She also had an unremarkable EEG in 2017. She had a MRI brain several years ago, maybe in 2017. Her migraines have progressed in severity and frequency. She states that her BP has improved.�������
Abortive: Imitrex was not helpful and caused chest pain. Benadryl is helpful at times.�������
Preventative: Amitriptyline caused dry mouth and was not helpful. She also tried acupuncture.�������
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
08/05/19: Since her last appointment, she had an MRI brain to evaluate for structural abnormality as cause for her migraines. This showed an acute infarct in the posterior limb of the left internal capsule and she was called and asked to come to the ""hospital. She had been asymptomatic from this stroke. Her blood pressure was very elevated and her hemoglobin A1c was found to be very elevated at 8.9. The plan was to continue dual antiplatelet for 21 days in order outpatient verify now testing to
see which agent is most efficacious for her to take long-term. We also started her on atorvastatin 20 mg. LDL is at goal at 65. She developed a severe headache in the hospital and was given Depakote 500 mg for1. We recommended a ZENON and link
placement but the patient left the hospital before this could be done. As she signed out AMA she was not given any scripts and has not been taking ASA, Plavix, atorvastatin or BP medication. She has subsequently seen cardiology and is planned to
have a ZENON and Linq placement done on August 06.�������MRA of the neck showed intact variation at the aortic arch. Smooth narrowing was seen at the origin of the right vertebral artery. 50% narrowing was seen at the origin of the left common
carotid artery at the aortic arch. MRA of the [place] showed an anatomical variation with a dominant left posterior communicating artery but no evidence of focal stenosis or aneurysm.�������
INTERVAL HX: Since her last appointment, she had verify now testing done for Plavix and for aspirin which showed that neither of these was therapeutic. However, she was NOT taking aspirin on a daily basis as she was concerned that it could interact
with Excedrin which she often takes for abortive therapy for migraine. She will need to have a verify now retested for aspirin after she has been on this for a full week. Her blood pressure has been 'up and down' and she has been taking it on a
regular basis. She had a loop recorder put in by cardiology and will follow up with them later today. She also had a ZENON done on 08/14/19 which showed 'mild to moderate concentric left ventricular hypertrophy with mild to moderate mitral
regurgitation and shunting across the inter-atrial septum. There was no visible defects seen across the septum on 2D color Doppler imaging.' She is following up with cardiology later today. She continues to have severe headaches that interfere with
her life. '
Patient ended up having a PFO closure in June 2020. LINQ monitor was placed and has been unremarkable. She reports that she has since stopped taking aspirin and clopidogrel.
Today (04/25/23): Patient reports that six days ago on 04/19/23 she develop left arm numbness from her wrist up to her shoulder. She denies any neck or arm pain associated with this and there was no hand involvement. This spontaneously resolved after
about 6 hours. She was in her usual state until two nights ago on 04/23/23 when she developed right arm numbness. She reports some tingling in her right hand but mostly wrist to shoulder involvement again. This persisted yesterday (04/24/23),
prompting her to come to the ER for evaluation. CT head was obtained in the ER and is suggestive of a small area of hypoattenuation in the left frontal lobe, unclear if this is subacute or chronic. Blood pressure was elevated up to 201/93. Blood
sugar was 408. NIHSS was 0. She was outside of the time window for TNK/no evidence of LVO for IAT. She was loaded with aspirin and clopidogrel. Patient reports that by last evening the numbness had resolved (about 24 hours total) and she is feeling
back to her normal self. She has her usual chronic, daily headache currently. She is taking Nurtec QOD and Excedrin migraine daily in the morning for years for headache relief. She denies any dizziness, vision changes, speech/swallowing difficulty,
numbness, weakness, chest pain, palpitations, and shortness of breath. Patient reports that it is typically for her blood sugars to be in the 300's and she has not been checking her blood pressure at home.
Past Medical History: Left internal capsule ischemic infarct, Left frontal ischemic infarct, NIDDM, HTN, HLD, migraine without aura, asthma, vitamin B12 deficiency
Surgical History: PFO closure, LINQ recorder, , wisdom teeth removal, bone spur removal
Family History: Adopted.
Social History: Current smoker, 5 cigarettes per day. Occasional alcohol. Denies illicit drug use.
Allergies: No known allergies.
Home Medications: See below.
Review of Symptoms:
Patient denies any fever, chest pain, shortness of breath, GI or symptoms.
�Per the HPI.�All systems are reviewed negative except above.
Physical Exam:
The patient is afebrile, abdomen is nondistended, breathing is unlabored, skin is warm and dry, no edema.
NIH Stroke Scale:
I performed the NIH stroke scale on the patient on 04/25/23 at 0830. The patient scored 0 points on the NIH stroke scale assessment, which were assigned as follows: See below.
Neurologic Examination:
The patient is awake, alert and oriented x 3. She is able to follow commands and answer questions appropriately. There is no aphasia or dysarthria. On cranial nerve assessment, pupils are 3 mm bilateral, round and reactive to light and
accommodation. Visual lewis are full. Extraocular movements are intact. Facial sensations are intact and bilaterally symmetrical, there is no facial asymmetry. Hearing is intact bilaterally to normal conversation volume. Tongue palate and uvula are
midline. Sternocleidomastoid strengths are full bilaterally. Motor strengths are 5/5 bilateral upper and lower extremities on medical research [place] scale. There is no drift or involuntary movement noted. Deep tendon reflexes are 2+ bilateral
upper and lower extremities and Babinski is absent bilaterally. Sensations of touch, temperature and vibration are intact and bilaterally symmetrical. There was no extinction noted on double simultaneous stimulation. Coordination is intact by finger
to nose bilaterally.
Lab Results: See below.
Neuro Imaging:
1. CT head 04/24/23: Small focus of hypoattenuation in the left frontal lobe periventricular white matter, possibly chronic although cannot rule out subacute white matter infarct and MRI would be of greater sensitivity, if clinically indicated. No
acute transcortical infarct or hemorrhage by CT.
Differentials for the patient's presentation include:
1. Possible small acute ischemic stroke producing sensory changes given significant risk factors for stroke.
2. Uncontrolled hypertension and diabetes possibly producing sensory changes.
3. Medication rebound headache from Excedrin migraine daily usage.
4. Chronic left internal capsule and left frontal lobe ischemic strokes.
5. Carotid ultrasound from June 2020 suggestive of 50-69% R ICA stenosis.
Patient has the following risk factors for their symptoms: HTN, NIDDM, smoking
IV Tenecteplase/IAT candidacy: Outside of time window, NIHSS 0.
Recommendations:
-Patient not agreeable to Plavix therapy. Okay to continue aspirin 81mg daily only, indefinitely,
-Goal normotension.
-MRI brain noncontrast and MRA head/neck ordered/pending.
-Echo ordered/pending.
-NIHSS and neurological checks per unit guidelines.
-Provide patient with a stroke education packet.
-LDL goal <70. LDL is resulted as -4, repeat lipid panel ordered. Continue home rosuvastatin 10mg daily until results are obtained.
-Goal normoglycemia, hbA1c is 10.5.
-Discussed with patient that Excedrin migraine is likely not helping her headaches, she is unwilling to stop taking it at this time. PRN tylenol for headache.
-PT/OT/ST evaluations.
-DVT prophylaxis.
-Will follow pending results. Patient should follow-up as an outpatient with her PCP and neurology at [facility], she has been discharged from out office.
Discussed patient care with: Dr. Benavides the patient
NIH Stroke Score
Subsequent NIH Scale
Date of Subsequent NIH Scale: 04/25/23
Time of Subsequent NIH Scale: 08:30
NIH Stroke Score
Level of Consciousness: 0 - Alert
LOC Questions: 0-Answers both correctly
LOC Commands: 0-Performs both correctly
Best Horizontal Gaze: 0-Normal
Visual Lewis: 0=Normal, no visual loss
Facial Palsy: 0=Normal, symmetrical
Motor - Right Arm: 0=No drift 10 seconds
Motor - Left Arm: 0=No drift 10 seconds
Motor - Right Le-No drift 5 seconds
Motor - Left Le-No drift 5 seconds
Limb Ataxia: 0-Absent
Sensation: 0-Normal
Best Language: 0-No aphasia
Dysarthria: 0-Normal
Extinction and Inattention: 0-No abnormality
Total Score:: 0
Vital Signs and Labs
-
Vital Signs and Labs:
Vital Signs
Temp Pulse Resp BP Pulse Ox
97.9 F 95 17 173/88 98
04/25/23 08:00 04/25/23 08:00 04/25/23 08:00 04/25/23 08:00 04/25/23 10:00
Lab Results
04/25/23 04:40
04/24/23 16:22
Sodium 136 mmol/L (135-145) 04/24/23 16:22
Potassium 5.4 mmol/L (3.5-5.1) H 04/24/23 16:22
BUN 17 mg/dl (7-17) 04/24/23 16:22
Glucose 408 mg/dl (70-99) H 04/24/23 16:22
Calcium 10.2 mg/dl (8.4-10.2) 04/24/23 16:22
LDL Cholesterol, Calc -4 mg/dl 04/25/23 04:40
Medications
-
Active Medications
Generic Name Dose Route Start Last Admin
Trade Name Freq PRN Reason Stop Dose Admin
Acetaminophen 650 mg 04/24/23 22:41
Acetaminophen 650 Mg Rectal Suppository RECTAL 05/22/23 22:40
Q4HPRN PRN
CALLAHAN, mild pain, or temp >100.4F
Acetaminophen 650 mg 04/24/23 22:41 04/25/23 04:43
Acetaminophen 325 Mg Tablet PO 05/22/23 22:40 650 mg
Q4HPRN PRN Administration
CALLAHAN, mild pain, or temp >100.4F
Aspirin 81 mg 04/25/23 08:00 04/25/23 09:14
Aspirin 81 Mg Chewable Tablet PO 05/23/23 07:59 81 mg
DAILY LOCO Administration
Atorvastatin Calcium 80 mg 04/24/23 22:00 04/24/23 22:59
Atorvastatin (Lipitor) 80 Mg Tablet PO 05/22/23 21:59 Not Given
QPM LOCO
Clopidogrel Bisulfate 75 mg 04/25/23 08:00 04/25/23 09:17
Clopidogrel 75 Mg Tablet PO 05/23/23 07:59 Not Given
DAILY LOCO
Cyanocobalamin 1,000 mcg 04/25/23 08:00 04/25/23 09:14
Cyanocobalamin 1,000 Mcg Tablet PO 05/23/23 07:59 1,000 mcg
DAILY LOCO Administration
Dextrose 12.5 grams 04/24/23 22:41
Dextrose 50% (0.5 Grams/Ml) 50 Ml Syringe IV 05/22/23 22:40
P00SVAM PRN
hypoglycemia
Protocol
Diphenhydramine HCl 50 mg 04/24/23 22:41 04/24/23 23:50
Diphenhydramine 25 Mg Capsule PO 05/22/23 22:40 50 mg
HS LOCO Administration
Diphenhydramine HCl 75 mg 04/24/23 22:41
Diphenhydramine 25 Mg Capsule PO 05/22/23 22:40
HSPRN PRN
sleep
Glucagon 1 mg 04/24/23 22:41
Glucagon 1 Mg Vial IM 05/22/23 22:40
PRN PRN
hypoglycemia
Protocol
Insulin Glargine 5 units/ 0.05 mls @ 0 mls/hr 04/24/23 23:00 04/24/23 23:50
Device SC 05/22/23 22:59 0.05 mls
HS LOCO Administration
As Directed
Insulin Aspart 0 units 04/25/23 07:30 04/25/23 09:18
Insulin Aspart Low Resistance 300 Units/3 Ml Pen.Injctr SC 05/23/23 07:29 Not Given
AC LOCO
Protocol
Labetalol HCl 10 mg 04/24/23 21:57 04/25/23 04:30
Labetalol Hcl 5 Mg/1 Ml (20 Mg/4 Ml) Injection IV 05/22/23 21:56 10 mg
Q6HPRN PRN Administration
SBP>170
Metformin HCl 500 mg 04/25/23 08:00 04/25/23 09:19
Metformin 500 Mg Regular Release Tablet PO 05/23/23 07:59 500 mg
BID@0800,1700 LOCO Administration
Naratriptan 2.5 Mg 0 mg 04/24/23 22:41
Po Bidprn PO 05/22/23 22:40
BIDPRN PRN
migraine
Rimegepant [Nurtec 0 mg 04/26/23 08:00
Odt] 75 Mg Odt Po PO 05/24/23 07:59
Q48h Q48H LOCO
Repaglinide 4 mg 04/25/23 09:00 04/25/23 09:13
Repaglinide 2 Mg Tablet PO 05/23/23 08:59 4 mg
PC LOCO Administration
Sodium Chloride 0 flush 04/24/23 22:00
Sodium Chloride 0.9% (Flush) Syringe IV 05/22/23 21:59
PER PROTOCOL LOCO
Home Medications
Medication Instructions Recorded
diphenhydramine HCl 25 mg capsule 50 mg PO HS Sleep ##0 06/22/20
(ZzzQuil)
insulin glargine 100 unit/mL (3 5 units SC HS 08/19/21
mL) subcutaneous pen (Lantus
Solostar U-100 Insulin)
metformin 500 mg tablet 1,000 mg PO BID@0800,1700 Diabetes 08/19/21
repaglinide 2 mg tablet 4 mg PO .AFTER MEALS 08/19/21
rosuvastatin 10 mg tablet 10 mg PO DAILY 08/19/21
cyanocobalamin (vitamin B-12) 1,000 mcg sublingual DAILY 11/20/21
1,000 mcg sublingual tablet
diphenhydramine HCl 25 mg capsule 75 mg PO HSPRN PRN sleep 11/20/21
(Benadryl)
naratriptan 2.5 mg tablet 2.5 mg PO BID PRN migraine 04/19/23
rimegepant 75 mg disintegrating 75 mg PO Q48H 04/19/23
tablet (Nurtec ODT)

Documented by User: Ubaldo Benavides MD 04/25/23 13:39
NIH Stroke Score
NIH Stroke Score
Total Score:: 0
[2023-04-25 08:25] LABS: Glucose - Point of Care 249 mg/dl (70-99)
[2023-04-25] MEDS: PRANDIN 4 MG PO ×2 (09:13→12:18)
--- NOTE | 2023-04-25 09:13 | PTCARENOTE ---
Echo with Bubble Study completed at bedside. Procedure completed per protocol with sterile technique. Right antecubital IV site clear, no redness, no edema, flushed easily pre and post procedure. Pt tolerated procedure well, offers no complaints.
[2023-04-25] MEDS: VITAMIN B-12 1000 MCG PO (09:14)
[2023-04-25] MEDS: LOW STRENGTH ASPIRIN 81 MG PO (09:14)
[2023-04-25] MEDS: NOVOLOG FLEXPEN-LOW RESISTANCE SC (09:18)
[2023-04-25] MEDS: GLUCOPHAGE 500 MG PO ×2 (09:19→12:18)
[2023-04-25 09:32] LABS: Glycohemoglobin (HgbA1c) 10.5 % (4.0-5.6)
[2023-04-25 11:53] LABS: Glucose - Point of Care 317 mg/dl (70-99)
[2023-04-25] MEDS: NOVOLOG FLEXPEN-LOW RESISTANCE 4 UNITS SC (11:54)
--- NOTE | 2023-04-25 14:16 | W.PN.HOSP.TC ---
Today's Communication/Plan
-
All discussed with the patient and her over the phone
Discussed with
Assessment / Plan
Assessment / Plan
Physical exam:
General: Awake, alert and oriented x3, not in distress and holds appropriate conversation.
HEENT: No active discharge, ecchymosis or bruising, moist lips, tongue and mucous membrane.
Eyes: No discharge or red conjunctiva, no nystagmus, pupils are reactive and equal
Neck:Supple, no JVD no bruit no goiter.
Respiratory: Normal AP contour and diameter, normal chest wall movement, normal respiratory effort, no respiratory distress,
Lungs: Good air entry bilaterally, no wheezing or rhonchi, no rales or crackles
Heart: S1, S2 regular, normal rate, no added sound.
Gastrointestinal: Positive bowel sounds, soft, nontender, no guarding or rigidity or organomegaly
Musculoskeletal: , no chest wall abnormality or tenderness. All joints and extremities have good range of motion, no muscle tenderness or any joint swelling or tenderness.
Extremities: No pitting edema, good peripheral pulses, good range of motion
Skin: Warm and dry, no ulceration, normal color.
Neurological: Awake, alert and oriented x3, cranial nerve II-XII grossly intact, speech clear and comprehensive, good muscle tone, normal sensory and motor function
Psychiatric: Normal mood, normal thought and judgment, normal affect,
Assessment and plan:
# Likely new CVA/TIA
# History of cryptogenic left internal capsule CVA in 2019
# PFO status post PFO closure
-CT head shows small focus of hypoattenuation in the left frontal lobe periventricular white matter possibly chronic although cannot rule out subacute white matter infarct
- Aspirin and Plavix given, continue daily, look like patient is known to take Plavix.
-80 mg atorvastatin started, LDL is -4, will put her back on her Lipitor 10.
-A1c is more than 10.
-Sugars elevated I will increase your Lantus to 10 units.
-Advised about better control of blood sugar and blood pressure.
-Pressure is elevated, may need oral antihypertensive, because of the hyperkalemia at this stage we will try to avoid PARAG inhibitor or ARB.
-Labetalol as needed
- MRI/MRA head and neck, pending
-echo
-Neurology input
# Hypertensive urgency
-IV labetalol to be given
-Add amlodipine 5 mg for now, because of hyperkalemia try to avoid PARAG or ARB
-Had a long conversation about better control of blood sugar and blood pressure.
History of migraines
-Continue Nurtec
-Neurology recommended to stay away from
-Continue as needed naratriptan
-Continue nightly Benadryl
# Hyperglycemia
#Type 2 diabetes
-Blood sugar 400 which patient does not believe since sugar was 170 immediately after when she checked her Dexcom
-A1c is more than 10
-Increase Lantus to 10 units from the 5 further increase may needed to
-Advised about better control of the blood sugar
-Continue metformin
-Continue repaglinide
-Insulin sliding scale, she is on low-dose Accu-Chek machine which is remotely called Dexcom which is not compatible with MRI. The sensor port could be removed for the MRI.
# Hyperkalemia possibly secondary to insulin deficiency
-recheck lab today
Tobacco use disorder
-Smokes 5 cigarettes a day
-Nicotine patch
B12 deficiency
-Continue B12
Insomnia
-Continue Benadryl
Full code
DVT prophylaxis�SCDs
Diabetic Diet
Anticipated Discharge: 24 - 48 hours
Subjective/Interval History
-
Date of Service: April 25, 2023
Seen and examined, awake and alert, currently denies any symptoms, numbness or weakness in extremities, afebrile denies chest pain or shortness of breath or any fever or any speech or vision disturbance.
Waiting on MRI she was to get out of the hospital.
Her blood pressure is elevated.
General no close remote blood pressure reading which the sensor part is not compatible with MRI.
Objective Data
-
Labs:
Laboratory Results
04/25/23
04:40
WBC 14.6 H
Hgb 12.5
Hct 37.0
Plt Count 389
Vital Signs:
Vital Signs
Temp Pulse Resp BP Pulse Ox
98.4 F 100 18 190/97 100
04/25/23 14:13 04/25/23 14:13 04/25/23 14:13 04/25/23 14:13 04/25/23 14:13
Review of Systems
-
All other systems: Reviewed and negative
[2023-04-25] MEDS: NORVASC 5 MG PO (14:57)
--- NOTE | 2023-04-25 15:35 | PTCARENOTE ---
Recieved Pt form ED. AAOx3. Denies pain or discomfort. NIH#0. Elevated BP. medication given. Pt is awaiting to for MRI.
--- NOTE | 2023-04-25 19:30 | PTCARENOTE ---
Pt is leaving AMA. Education was provided on importance of staying at this hospital and receiving care with no effect. MD christiansen was notified.
[2023-04-25] MEDS: GLUCOPHAGE 1000 MG PO (19:39)
[2023-04-27 02:29] LABS: Beta-2-Glycoprotein I Ab. IgG <10 SGU (<=20); Beta-2-Glycoprotein I Ab. IgM <10 SMU (<=20)
[2023-04-27 08:13] LABS: Cardiolipin IgA Antibody <10 APL (<=11); Cardiolipin IgM Antibody <10 MPL (<=12); Cardiolipin Igg Antibody <10 GPL (<=14)
== END 2023-04-25 20:23 | disposition left against medical advice (07) | DRG 66 ==
LOC: 4 EAST ACU 22:15
PROVIDERS: Student in an Organized Health Care Education/Training Program; ADMITTING PHYSICIAN Hospitalist; ATTENDING PHYSICIAN Internal Medicine; CONSULT PHYSICIAN Student in an Organized Health Care Education/Training Program; EMERGENCY PHYSICIAN Emergency Medicine; FAMILY PHYSICIAN Family Medicine
DX: I63.9 Cerebral infarction, unspecified (principal); F17.210 Nicotine dependence, cigarettes, uncomplicated; G43.009 Migraine without aura, not intractable, without status migrainosus; E11.65 Type 2 diabetes mellitus with hyperglycemia; E78.00 Pure hypercholesterolemia, unspecified; I16.0 Hypertensive urgency; E53.8 Deficiency of other specified B group vitamins; G47.00 Insomnia, unspecified; G44.40 Drug-induced headache, not elsewhere classified, not intractable; I10 Essential (primary) hypertension; D72.829 Elevated white blood cell count, unspecified; E87.5 Hyperkalemia; Z86.73 Personal history of transient ischemic attack (TIA), and cerebral infarction without residual deficits; Z79.4 Long term (current) use of insulin; Z79.02 Long term (current) use of antithrombotics/antiplatelets; Z79.82 Long term (current) use of aspirin; Z79.84 Long term (current) use of oral hypoglycemic drugs; Z87.74 Personal history of (corrected) congenital malformations of heart and circulatory system
CPT/HCPCS: 70450; 70544; 70548; 70553; 80053; 80061; 82962; 83036; 85025; 86146; 86147; 93005; 93306; 96360; 99285; A9585

== ENCOUNTER 2023-08-05 16:58 | Emergency (ER) | payer OTHER, SELFPAY ==
[2023-08-05 17:00] VITALS: BP 197/99
--- NOTE | 2023-08-05 17:23 | ED.GENMED ---
History of Present Illness
<Sally Asher PA-C - Last Filed: 08/05/23 22:08>
General
Chief Complaint: Musculo-Skeletal Complaint
Source: patient
Exam Limitations: none
Time Seen by Provider: 08/05/23 17:22
Nursing documentation reviewed up to this point in time: agreed with
Travel History
Have you had any contact with someone who has COVID-19?: No
Do you have any symptoms of coronavirus? Fever > 100 degrees, chills, cough, shortness of breath, sore throat, loss of taste or smell, muscle aches, or headache?: No
History of Present Illness
History of Present Illness:
This is a 47 y/o female with a pmh of migraines, diabetes on insulin, hyperlipidemia presenting to the emergency department today with right ankle pain. Patient states that pain started yesterday, she was playing with her grandchildren at the park.
Patient states that she was swinging on a large swing on the playground closer to the ground when her daughter was pushing her on the swing and her right foot got caught stuck between chair and ground and she felt a crunch. Patient did not fall,
denies head trauma, neck pain, any other injuries. Patient able to walk but with much pain. Sent from urgent care after fracture identified on x-ray.
Past History
<JERSON Nino Last Filed: 08/05/23 22:08>
Past History
ED Past Medical History: CVA (X 2), HTN, Hypercholesterolemia, IDDM and Other (migraines); Negative CAD
ED Past Surgical History: Cardiac (Loop recorder and then it was removed, Closure of PFO), , Gynecological (Lap for precancerous cervical cells, ) and Orthopedic (Left great toe surgery, )
Social History
Tobacco: Smoker
Alcohol: Occasional
Drug: None
Personal:
Living: with family
Employment: Employed
Family History
Family History: Adopted
Review of Systems
<Sally Asher PA-C - Last Filed: 08/05/23 22:08>
Review of Systems
All Other Systems: ROS reviewed and negative except as documented in HPI and ROS
Phy Exam
<Sally Asher PA-C - Last Filed: 08/05/23 22:08>
Physical Exam
Physical Exam:
General: Patient well appearing, no acute distress
Skin: Ecchymosis and swelling noted to the lateral and medial right ankle. Brisk capillary refill.
Head: Normocephalic, atraumatic
Eyes: EOMs intact, PERRLA, sclera non-icteric
Cardiac: Regular rate and rhythm, no murmur
Pulm: Normal respiratory effort
Peripheral Vascular: 2+ dorsalis pedis pulses bilaterally
Musculoskeletal: Tenderness to palpation of right ankle joint. No tenderness to palpation of R proximal tibia and fibula.
Neurologic: CN II-XII intact, no focal neurologic deficits. Sensation intact.
Psychiatric: Appropriate mood and affect.
Course
<Sally Asher PA-C - Last Filed: 08/05/23 22:08>
Orders/Labs/Results
Orders:
Orders
08/05/23 18:18
HYDROmorphone [Dilaudid] 1 mg IM NOW STA
08/05/23 19:16
Crutches-Treatment ONCE
Vital Signs
Initial and Last Documented VS:
Initial Vital Signs
Temp Pulse Resp BP Pulse Ox
98.4 F 112 18 197/99 98
08/05/23 17:00 08/05/23 17:00 08/05/23 17:00 08/05/23 17:00 08/05/23 17:00
Last Documented Vital Signs
Temp Pulse Resp BP Pulse Ox
98.4 F 92 18 180/82 99
08/05/23 17:00 08/05/23 19:38 08/05/23 19:38 08/05/23 19:38 08/05/23 19:38
<Pantera Feliciano DO - Last Filed: 08/05/23 19:33>
Orders/Labs/Results
Orders:
Orders
08/05/23 18:18
HYDROmorphone [Dilaudid] 1 mg IM NOW STA
08/05/23 19:16
Crutches-Treatment ONCE
Vital Signs
Initial and Last Documented VS:
Initial Vital Signs
Temp Pulse Resp BP Pulse Ox
98.4 F 112 18 197/99 98
08/05/23 17:00 08/05/23 17:00 08/05/23 17:00 08/05/23 17:00 08/05/23 17:00
Last Documented Vital Signs
Temp Pulse Resp BP Pulse Ox
98.4 F 92 18 180/82 99
08/05/23 17:00 08/05/23 19:38 08/05/23 19:38 08/05/23 19:38 08/05/23 19:38
Procedures
<Sally Asher PA-C - Last Filed: 08/05/23 22:08>
Splinting/Sling Placement
Right Lower Leg:
Procedure completed by: Pantera Morrow PA-C DO
Pre-splint extermity exam: neurovascular intact
Type of splint: sugar-tong and posterior short leg
Splint material: fiberglass
Splint checked by provider?: Yes
Normal distal neurovascular exam?: Yes
<Sally Asher PA-C - Last Filed: 08/05/23 22:08>
MDM/Problems Addressed
Differential Diagnosis Includes:
distal fibula fracture, patient sent from urgent care, x-rays taken
MDM/Problems Addressed:
47 y/o female presenting from urgent care for distal fibula fracture. Pt neurovascularly intact. No proximal tenderness. Case reviewed with ortho who plans to do surgery on her eventually, will see her in office in coming days. Splint placed,
patient tolerated procedure well, pain well controlled in ED with IM dilaudid, patient stable for discharge. Return precautions given.
Chronic conditions affecting care:
diabetes, HTN
<Sally Asher PA-C - Last Filed: 08/05/23 22:08>
*Radiology
Radiology exam reviewed: preliminary read by ED provider and radiology read reviewed
*Pulse Oximetry
Patient hypoxic: no
*Critical Care Note
Total Time (30-74mins, 75-104mins- exclusive of procedures): Not Applicable
Data Reviewed
Review of Other/Old Records Reveals: Records (reviewed recent ER physician documentation)
Source: patient and records
<JERSON Nino Last Filed: 08/05/23 22:08>
Patient Management
Social determinants of health affecting care: Strong social support
Discussion with other providers: Other (orthopedist)
Escalation/DeEscalation of care consider admission/obs:
Admit not indicated
ED Attending Note
<JERSON Nino Last Filed: 08/05/23 22:08>
-
Portions of this chart may have been created with voice recognition software.� Occasional wrong word or��sound alike� substitutions may have occurred due to the inherent limitations of voice recognition software.
<Pantera Feliciano DO - Last Filed: 08/05/23 19:33>
ED Attending Note
Patient seen and examined by attending physician: Yes
I performed a history and physical exam of patient and discussed management with resident, I reviewed resident's note and agree with documented findings and plan of care.: Yes
ED Attending Note:
I have reviewed and agree with patient treatment plan by Sally Asher. My exam revealed 47-year-old female with ecchymosis and tenderness to right ankle. X-rays consistent with distal fibula fracture. Minimal displacement. Splint applied,
molding and traction to improve alignment. F/u with orthopedics.
Discharge Plan
Departure
Patient Disposition: Home (Routine Discharge)
Date of Disposition: 08/05/23
Time of Disposition: 19:09
Patient with high blood pressure during this ER visit?: Yes
Condition: Good
Discharge Problem:
Fracture of distal end of right fibula
Instructions: Ankle Fracture (DC), Splint Care, BLOOD PRESSURE
Prescriptions:
No Action
diphenhydramine HCl [ZzzQuil] 25 mg Capsule
50 mg PO HS Qty: 0
repaglinide 2 MG tablet
4 mg PO .AFTER MEALS
rosuvastatin 10 MG tablet
10 mg PO DAILY
insulin glargine [Lantus Solostar U-100 Insulin] 300 UNITS/3 ML insulin pen
5 units SC HS
metformin 500 MG tablet
1,000 mg PO BID@0800,1700
cyanocobalamin (vitamin B-12) 1,000 mcg Tablet, Sublingual
1,000 mcg SUBLINGUAL DAILY
diphenhydramine HCl [Benadryl] 25 ng Capsule
75 mg PO HSPRN PRN (Reason: sleep)
naratriptan 2.5 mg tablet
2.5 mg PO BID PRN (Reason: migraine)
Nurtec ODT 75 mg tablet,disintegrating
75 mg PO Q48H
Referrals:
Stew Avalos DO [Active] - Call in 1-3 days for appt
Kurtis López DO [Family Provider] -
Activity Restrictions/Additional Instructions:
Please call the attached number tomorrow morning for Dr. Avalos's office to schedule an appointment.
Please keep the splint in place and keep it dry. Please do not bear weight.
Please return emergency department should you experience chest pain, shortness of breath, further injuries, acute worsening of your pain, numbness or tingling in your splinted extremity, pallor in your toes, or any other concerning signs or symptoms.
You can take ibuprofen for pain control, you can take one 200 mg tablet every 4-6 hours as needed for pain, may increase to 400 mg every 4-6 hours if needed. Please do not exceed 1200 mg/day.
Interventions
Interventions:
*Risk Screen - Suicide Last Done: 08/05/23 17:00
*General Assessment Last Done: 08/05/23 17:00
*Neglect/Abuse Screening Last Done: 08/05/23 17:00
ED- Fall Risk Assessment Last Done: 08/05/23 19:39
*ED COVID-19 Vaccine History Last Done: 08/05/23 18:35
*Nursing Disposition Last Done: 08/05/23 19:39
ED-Musculoskeletal Assessment Last Done: 08/05/23 18:35
Discharge Date and Time
Discharge Date/Time: 08/05/23 19:40
Print Language: LATVIAN
[2023-08-05] MEDS: DILAUDID 1 MG IM (18:24)
[2023-08-05 19:38] VITALS: BP 180/82
== END 2023-08-05 19:40 | disposition home or self-care (01) ==
LOC: EMR 16:58
PROVIDERS: EMERGENCY PHYSICIAN Emergency Medicine; FAMILY PHYSICIAN Family Medicine
DX: S82.831A Other fracture of upper and lower end of right fibula, initial encounter for closed fracture (principal); S90.01XA Contusion of right ankle, initial encounter; W23.0XXA Caught, crushed, jammed, or pinched between moving objects, initial encounter; Y93.89 Activity, other specified; Y92.830 Public park as the place of occurrence of the external cause; G43.909 Migraine, unspecified, not intractable, without status migrainosus; E11.9 Type 2 diabetes mellitus without complications; E78.00 Pure hypercholesterolemia, unspecified; I10 Essential (primary) hypertension; F17.210 Nicotine dependence, cigarettes, uncomplicated; Z79.4 Long term (current) use of insulin; Z86.73 Personal history of transient ischemic attack (TIA), and cerebral infarction without residual deficits
CPT/HCPCS: 99284; 29515; 96372

== ENCOUNTER 2023-11-19 21:18 | Inpatient (IN) | payer OTHER, SELFPAY ==
[2023-11-19 16:30] VITALS: BP 172/89
[2023-11-19 16:33] LABS: Glucose - Point of Care 371 mg/dl (70-99)
[2023-11-19 16:44] VITALS: BP 161/67
--- NOTE | 2023-11-19 16:53 | ED.GENMED ---
History of Present Illness
General
Chief Complaint: Abdominal Symptoms
Source: patient
Exam Limitations: none
Time Seen by Provider: 11/19/23 16:48
History of Present Illness
History of Present Illness:
See MDM
Past History
Past History
ED Past Medical History: CVA (X 2), HTN, Hypercholesterolemia, IDDM and Other (migraines); Negative CAD
ED Past Surgical History: Cardiac (Loop recorder and then it was removed, Closure of PFO), , Gynecological (Lap for precancerous cervical cells, ) and Orthopedic (Left great toe surgery, )
Social History
Tobacco: Smoker
Alcohol: Occasional
Drug: None
Personal:
Living: with family
Employment: Employed
Family History
Family History: Adopted
Phy Exam
Physical Exam
Physical Exam:
See MDM
Course
Orders/Labs/Results
Orders:
Orders
11/19/23 16:39
Test Result ONCE
11/19/23 16:40
EKG [Electrocardiogram (*1)] Urgent
Reason for Study: Tachycardia
EKG- Treatment ONCE
11/19/23 16:43
Type+Screen Urgent
Complete Blood Count/With Diff Urgent
Comprehensive Metabolic Panel Urgent
HCG, Serum Qualitative Screen Urgent
Lipase Urgent
11/19/23 16:52
0.9% Sodium Chloride 1000 ml [Nss] 1,000 ml IV BOLUS
Ketorolac [Toradol] 30 mg IV NOW STA
Morphine Sulfate 4 mg IV NOW STA
11/19/23 16:54
CT Abd/pelvis W Iv Cont Urgent
Comment:
Reason For Exam: general abd pain and vomiting
11/19/23 16:57
B-Hydroxybutyrate Urgent
Venous Blood Gas Urgent
%Oxygen/Room Air: room
11/19/23 17:00
Ondansetron Injectable [Zofran] 4 mg .ROUTE .STK-MED ONE
Ondansetron Injectable [Zofran] 4 mg IV NOW STA
11/19/23 18:09
Insulin Human Regular [Novolin R] 5 units IV NOW STA
11/19/23 18:11
Bedside Glucose- Treatment Q1H
IV Insert/Care/Rem.- Treatment PRN
11/19/23 18:23
Trimethobenzamide [Tigan] 200 mg IM NOW STA
11/19/23 19:53
0.9% Sodium Chloride 1000 ml [Nss] 1,000 ml IV BOLUS
11/19/23 20:12
Piperacillin/Tazo 3.375 Gram [Zosyn] 3.375 gram in 50 ml IV NOW
11/19/23 20:15
Basic Metabolic Panel Q2H
11/19/23 22:15
Basic Metabolic Panel Q2H
Abnormal Lab Results
11/19/23 11/19/23 11/19/23
16:32 16:43 16:57
WBC 22.8 H 10^3/uL
(4.8-10.8)
RDW 14.7 H %
(11.5-14.5)
Plt Count 509 H 10^3/uL
(130-400)
Abs Immat Gran (auto) 0.1 H 10^3/uL
(0-0.05)
Absolute Neuts (auto) 21.4 H 10^3/uL
(1.4-6.5)
Absolute Lymphs (auto) 0.9 L 10^3/uL
(1.2-3.4)
Neutrophils % 94.1 H %
(42.2-75.2)
Lymphocytes % 3.9 L %
(20.5-51.1)
Monocytes % 1.2 L %
(1.7-9.3)
VBG pCO2 33 L mmHg
(35-48)
VBG HCO3 18.6 L mmol/L
(22-27)
Potassium 5.2 H mmol/L
(3.5-5.1)
Chloride 97 L mmol/L
(98-107)
Carbon Dioxide 17 L mmol/L
(22-30)
BUN 19 H mg/dl
(7-17)
Glucose 435 H mg/dl
(70-99)
Calcium 10.6 H mg/dl
(8.4-10.2)
AST 45 H U/L
(14-36)
ALT 45 H U/L
(0-35)
Albumin 5.3 H g/dl
(3.5-5.0)
B-Hydroxybutyrate 0.76 H mmol/L
(0.02-0.27)
POC Glucose 371 H mg/dl
(70-99)
11/19/23 11/19/23
18:32 19:51
WBC
RDW
Plt Count
Abs Immat Gran (auto)
Absolute Neuts (auto)
Absolute Lymphs (auto)
Neutrophils %
Lymphocytes %
Monocytes %
VBG pCO2
VBG HCO3
Potassium
Chloride
Carbon Dioxide
BUN
Glucose
Calcium
AST
ALT
Albumin
B-Hydroxybutyrate
POC Glucose 348 H mg/dl 267 H mg/dl
(70-99) (70-99)
11/19/23 16:43
Vital Signs
Initial and Last Documented VS:
Initial Vital Signs
Pulse Resp BP Pulse Ox
101 33 172/89 95
11/19/23 16:30 11/19/23 16:30 11/19/23 16:30 11/19/23 16:30
Last Documented Vital Signs
Pulse Resp BP Pulse Ox
104 23 175/76 98
11/19/23 19:30 11/19/23 19:30 11/19/23 18:00 11/19/23 19:30
MDM/Problems Addressed
Differential Diagnosis Includes:
HPI and MDM Narrative:
47-year-old female presenting for evaluation of nausea and vomiting. Patient found to be hyperglycemic but states that her blood sugar often goes up to 400. Patient is clinically dehydrated. She is pale. She has generalized abdominal pain
Will give morphine and Zofran. Will give IV fluid. Will obtain beta-hydroxybutyrate and VBG to rule out DKA
Physical exam
General: weak and fatigued
HEENT: protecting airway. Dry mucous membranes
Neck: appears supple
CV: No evidence of cyanosis
Resp: No accessory muscle use
Abd: Non-distended. Mild generalized abdominal
Extremities: No deformities
Neuro: alert
Psych: Normal affect
Skin: Intact
Problems Addressed including Acute and Chronic Conditions affecting care:
1. Abdominal pain
Acuity: acute
Prognosis: stable
Details: Will give Toradol obtain CT abdomen/pelvis
2. Hyperglycemia
Acuity: acute
Prognosis: unstable
Details: Will obtain blood work to rule out DKA
3. Pancolitis
Acuity: acute
Prognosis: stable
Details: Pancolitis seen on CT. Will start Zosyn
Updates
EKG concerning for prolonged QT syndrome. Will avoid QT prolonging medicines moving forward
Given the CT finding of pancolitis, will start Zosyn. Given inability to tolerate p.o. and her dehydration, will admit
Differential Diagnosis (but not limited to): DKA, colitis, viral gastroenteritis
Testing considered: Urinalysis
Drug therapy (if applicable): OTC meds, please see d/c instruction regarding Rx drugs
Amount and/or Complexity of Data Reviewed
Clinical info obtained from: Patient
External data reviewed: N/A
Labs I independently reviewed (but not limited to): Hyperglycemia
Radiology: The CT scan was personally and independently reviewed. In addition, official CT report reviewed.
Pulse Ox: not hypoxic
EKG independently reviewed: Sinus rhythm, prolonged QT, no STEMI
Rechecker: N/A
Critical Care: N/A
Risk of Complication:
Social Determinants of health: Good social support
Discussed with other providers: N/A
Escalation of Care includes Admit/Obs: Given her pancolitis and inability tolerate p.o., will admit
Occasional wrong word or 'sound a like' substitutions may have occurred due to the inherent limitations of voice recognition software. Read the chart carefully and recognize, using context, where substitutions have occurred.
*Critical Care Note
Total Time (30-74mins, 75-104mins- exclusive of procedures): Not Applicable
ED Attending Note
-
Portions of this chart may have been created with voice recognition software.� Occasional wrong word or��sound alike� substitutions may have occurred due to the inherent limitations of voice recognition software.
Discharge Plan
Departure
Patient Disposition: Admit
Date of Disposition: 11/19/23
Time of Disposition: 20:25
Presentation/result/management discussed w/ accepting MD/DO: Hospitalist
Discharge Problem:
Pancolitis, Hyperglycemia, Acute dehydration
Prescriptions:
No Action
rosuvastatin 10 MG tablet
10 mg PO DAILY
insulin glargine [Lantus Solostar U-100 Insulin] 300 UNITS/3 ML insulin pen
7 units SC HS
cyanocobalamin (vitamin B-12) 1,000 mcg Tablet, Sublingual
1,000 mcg SUBLINGUAL DAILY
diphenhydramine HCl [Benadryl] 25 ng Capsule
75 mg PO HS
naratriptan 2.5 mg tablet
2.5 mg PO BIDPRN PRN (Reason: migraine)
Nurtec ODT 75 mg tablet,disintegrating
75 mg PO Q48H
prochlorperazine maleate 10 mg Tablet
10 mg PO DAILYPRN PRN (Reason: nausea)
aspirin 81 mg Tablet,Delayed Release (Dr/Ec)
81 mg PO DAILY
insulin aspart U-100 100 unit/mL Solution
4 unit SC MEALS
melatonin 5 mg Tablet,Chewable
10 mg PO HS
Referrals:
Kurtis López DO [Family Provider] -
Interventions
Interventions:
*Risk Screen - Suicide Last Done: 11/19/23 16:30
*General Assessment Last Done: 11/19/23 16:30
*Neglect/Abuse Screening Last Done: 11/19/23 16:30
ED- Fall Risk Assessment Last Done: 11/19/23 16:50
IQ-Vnznvo-Stgkhkpgiv Assessment Last Done: 11/19/23 16:49
Discharge Date and Time
Print Language: KINYARWANDA
[2023-11-19] MEDS: NSS 1000 IV ×3 (16:58→23:08)
[2023-11-19 17:00] VITALS: BP 166/82
[2023-11-19] MEDS: ZOFRAN 4 MG IV (17:00)
[2023-11-19 17:05] LABS: Venous Blood Gas B.E. -5.9 mmol/L (-4 to +4); Venous Blood Gas HCO3 18.6 mmol/L (22-27); Venous Blood Gas pCO2 33 mmHg (35-48); Venous Blood Gas pH 7.36 (7.32-7.43); Venous Blood Gas pO2 41 mmHg (30-50)
[2023-11-19 17:08] LABS: % Basophils 0.3 % (0-2); % Immature Granulocytes 0.5 % (0-0.5); % Lymphocytes 3.9 % (20.5-51.1); % Monocytes 1.2 % (1.7-9.3); % Neutrophils 94.1 % (42.2-75.2); Absolute Basophils 0.1 10^3/uL (0-0.2); Absolute Immature Granulocytes 0.1 10^3/uL (0-0.05); Absolute Lymphocytes 0.9 10^3/uL (1.2-3.4); Absolute Monocytes 0.3 10^3/uL (0.1-0.6); Absolute Neutrophils 21.4 10^3/uL (1.4-6.5); Hematocrit 40.9 % (37.0-47.0); Hemoglobin 13.7 g/dL (12.0-16.0); Mean Corp Hgb Conc. 33.5 g/dL (33.0-37.0); Mean Corpuscular Hgb 28.7 pg (27.0-31.0); Mean Corpuscular Volume 85.7 fL (81.0-99.0); Mean Platelet Volume 8.7 fL (7.4-10.4); Nucleated Red Blood Cells % 0 %; Platelet Count 509 10^3/uL (130-400); Red Blood Cell Count 4.77 10^6/uL (4.20-5.40); Red Cell Dist. Width 14.7 % (11.5-14.5); White Blood Cell Count 22.8 10^3/uL (4.8-10.8)
[2023-11-19 17:16] LABS: HCG, Serum Qualitative Screen Negative
[2023-11-19 17:20] LABS: Albumin 5.3 g/dl (3.5-5.0); Alkaline Phosphatase 112 U/L (38-126); Blood Urea Nitrogen 19 mg/dl (7-17); Calcium 10.6 mg/dl (8.4-10.2); Carbon Dioxide 17 mmol/L (22-30); Chloride 97 mmol/L (98-107); Glucose 435 mg/dl (70-99); Lipase 39 U/L (23-300); Potassium 5.2 mmol/L (3.5-5.1); Sodium 137 mmol/L (135-145); Total Bilirubin 0.8 mg/dl (0.2-1.3); Total Protein 7.9 g/dl (6.3-8.2); eGFR > 60.00
[2023-11-19 17:31] LABS: ALT (SGPT) 45 U/L (0-35); AST (SGOT) 45 U/L (14-36)
[2023-11-19 17:48] LABS: B-Hydroxybutyrate 0.76 mmol/L (0.02-0.27)
[2023-11-19 18:00] VITALS: BP 175/76
[2023-11-19] MEDS: TIGAN 200 MG IM (18:33)
[2023-11-19] MEDS: NOVOLIN R 5 UNITS IV (18:35)
[2023-11-19 18:40] LABS: Glucose - Point of Care 348 mg/dl (70-99)
[2023-11-19 19:53] LABS: Glucose - Point of Care 267 mg/dl (70-99)
[2023-11-19 20:02] VITALS: BP 176/74
[2023-11-19] MEDS: ZOSYN 50 IV (20:22)
[2023-11-19 20:36] LABS: Blood Urea Nitrogen 16 mg/dl (7-17); Calcium 9.3 mg/dl (8.4-10.2); Carbon Dioxide 19 mmol/L (22-30); Chloride 102 mmol/L (98-107); Glucose 269 mg/dl (70-99); Potassium 4.3 mmol/L (3.5-5.1); Sodium 138 mmol/L (135-145); eGFR > 60.00
[2023-11-19 21:05] LABS: Glucose - Point of Care 283 mg/dl (70-99)
--- NOTE | 2023-11-19 21:13 | HPS.HSE ---
Addendum entered and electronically signed by Jelani Iglesias DO 11/19/23 22:06:
Patient seen and examined independently. Agree with findings and plan as set forth by Heather Wilkinson PA-C.
Patient is a 47y F with PMH significant for cryptogenic CVA, DM and migraines who presents to ED complaining of diaphoresis, malaise and N/V/D all day today. Patient states that she had been constipated for the past 2-3 days. She has tried
multiple measures including manual disimpaction and then last PM she took magnesium citrate. She had a large BM last night and has had loose, liquid, non-bloody stools throughout the day today. She has also developed N/V and has been unable to keep
down any PO intake. She presented to the ED for further evaluation and treatment.
Ass:
Anion Gap Metabolic Acidosis
Metabolic Alkalosis
DM-II with DKA
Pancolitis
Prolonged QT
History of Cryptogenic CVA / PFO s/p Closure
Plan:
Admit for further evaluation and treatment.
Anion gap initially 23 and improved to 17 after IVFs and initial insulin.
Continue aggressive IVF replacement and basal : bolus insulin for now.
Follow fingerstick glucose and serial labs (next at [facility]) and consider insulin infusion if gap increases or does not continue to improve.
IV abx for now for possible pancolitis - ? imaging findings a result of constipation and subsequent diarrhea / emptying.
Follow-up stool studies. Follow temp curve, clinical symptoms, etc.
Supportive care including antiemetics - Tigan given QT prolongation.
Original Note:
Family Physician
-
Family Physician: Kurtis López DO
Chief Complaint
-
Nausea, Vomiting and Diarrhea
History of Present Illness
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 Patient reports she was experiencing severe constipation. She reports she
took magnesium citrate and after a lot of straining she finally had a very hard bowel movement. Afterwards she developed significant diarrhea associated with nausea and vomiting. She reports she was unable to get off the toilet all night. She
reports chills, but denies any recorded fevers. She denies any unusual food intake, recent travel or sick contacts with similar symptoms.
Medical History
Past Medical History
Past Medical History: Reports Other
Additional Past Medical History:
Cryptogenic CVA
Insulin-Dependent Diabetes Mellitus
Hyperlipidemia
Migraine Headache
Insomnia
Past Surgical History: Reports Other
Additional Past Surgical History:
PFO Closure
Cervical LEEP
Left Great Toe Surgery
Social History
Tobacco: Smoker (5 cigarettes per day)
Alcohol: Occasional
Family History
Family History: Not pertinent
Allergies / Home Medications
Allergies reflects when Allergies were last updated in [facility].
Home Medications with original date entered in [facility]
Allergy/Medication List:
Allergies
Allergy/AdvReac Type Severity Reaction Status Date / Time
No Known Allergies Allergy Verified 08/05/23 17:00
Home Medications
insulin glargine 100 unit/mL (3 mL) subcutaneous pen (Lantus Solostar U-100 Insulin) 7 units SC HS 08/19/21
rosuvastatin 10 mg tablet 10 mg PO DAILY 08/19/21
cyanocobalamin (vitamin B-12) 1,000 mcg sublingual tablet 1,000 mcg sublingual DAILY 11/20/21
diphenhydramine HCl 25 mg capsule (Benadryl) 75 mg PO HS 11/20/21
naratriptan 2.5 mg tablet 2.5 mg PO BIDPRN PRN migraine 04/19/23
rimegepant 75 mg disintegrating tablet (Nurtec ODT) 75 mg PO Q48H 04/19/23
aspirin 81 mg tablet,delayed release 81 mg PO DAILY 11/19/23
insulin aspart U-100 100 unit/mL subcutaneous solution 4 unit SC MEALS 11/19/23
melatonin 5 mg chewable tablet 10 mg PO HS 11/19/23
prochlorperazine maleate 10 mg tablet 10 mg PO DAILYPRN PRN nausea 11/19/23
Review of Systems
-
A 12 point ROS was completed and negative except as noted: Yes
Constitutional: Denies Fever
Respiratory: Denies Cough or Trouble Breathing
Cardiac: Denies Chest Pain or Palpitations
Abdomen/GI: Reports See HPI
Physical Exam
Vital Signs
Vital Signs
Pulse Resp BP Pulse Ox
107 31 176/74 98
11/19/23 21:00 11/19/23 21:00 11/19/23 20:02 11/19/23 19:30
Physical Exam
General: Conversant and Other (Appears acutely ill)
HEENT: Anicteric and Other (Mucous membranes are dry)
Respiratory: Clear and Non Labored Respirations
Cardiac: S1/S2 and Regular Rhythm
GI: Soft and Tender (Mild throughout without rebound or guarding)
Musculoskeletal: No Clubbing, No Cyanosis and No Edema
Skin: Warm and Dry
Neuro: Awake, Alert and Oriented
Psych: Calm
Laboratory Results
-
11/19/23 16:43
Laboratory Results
Total Bilirubin 0.8 mg/dl (0.2-1.3) 11/19/23 16:43
AST 45 U/L (14-36) H 11/19/23 16:43
ALT 45 U/L (0-35) H 11/19/23 16:43
Alkaline Phosphatase 112 U/L (38-126) 11/19/23 16:43
Lipase 39 U/L (23-300) 11/19/23 16:43
Abd/Pelvis CT scan:
1. Mild diffuse colonic wall thickening suggesting a mild infectious pancolitis. Under distention of the colonic lumen is an alternative diagnostic possibility.
2. Moderate calcific atherosclerotic plaque in the abdominal aorta and severe calcific atherosclerotic plaque in the right common iliac artery.
3. Moderate discogenic degenerative disease at L3/L4.
Data Reviewed
-
CT Scan: Report Reviewed by me
Lab Data: Labs Reviewed by me
Impression/Plan
-
Diabetic Ketoacidosis
-Initial anion gap 23, but closing quickly with single dose of IV insulin and IVFs, now down to 17
-Hold on insulin drip
-Continue IVFS
-Resume usual home insulin regimen
-Monitor bedside glucose every 2 hours for now with repeat BMP this evening and in AM
Pancolitis
-Check stool studies
-Continue Zosyn
-Allow clear liquids
Prolonged QT
-Avoid QT prolonging medications
-Will use Tigan in place of Zofran for nausea
-Recheck ECG in AM
Hyperlipidemia
-Continue Crestor
Prior Cryptogenic CVA due to PFO s/p PFO Closure
-Continue Aspirin
DVT proph: Lovenox
Code Status: Full Code
[2023-11-19] MEDS: LANTUS 0.08 UNITS SC (21:38)
[2023-11-19 22:01] VITALS: BP 177/76
[2023-11-19 22:03] VITALS: BMI 22.8
[2023-11-19 22:12] LABS: Lactic Acid 2.5 mmol/L (0.7-2.0)
[2023-11-19] MEDS: BENADRYL PO ×2 (23:08→23:26)
[2023-11-19 23:18] LABS: Glucose - Point of Care 288 mg/dl (70-99)
[2023-11-19] MEDS: BENADRYL 6.25 MG IV (23:32)
[2023-11-20] VITALS (11 sets, daily range): BP systolic 149–188; BP diastolic 72–94
--- NOTE | 2023-11-20 00:56 | PTCARENOTE ---
Pt from ED. Pt AAOx3, Pt requesting to not take Benadryl PO, INTERNAL GRINDER SET UP OPERATOR changed to IV. Pt having periods of ST into the 150's then back into the 110's moments later, per INTERNAL GRINDER SET UP OPERATOR labs to be taken now. Pt uncooperative at times. Education and emotional support
given, Pt allows care. Pt placed on 2l for spo2 dropping into the low 80's while sleeping. Pt skin intact. Pt does have B/L nipple piercing, naval piercing and vaginal piercing she is 'keeping in for now'. Assessment care and vitals as charted.
[2023-11-20 01:16] LABS: Glucose - Point of Care 266 mg/dl (70-99)
[2023-11-20 01:51] LABS: Lactic Acid 1.5 mmol/L (0.7-2.0)
[2023-11-20 01:52] LABS: Blood Urea Nitrogen 15 mg/dl (7-17); Calcium 9.4 mg/dl (8.4-10.2); Carbon Dioxide 18 mmol/L (22-30); Chloride 105 mmol/L (98-107); Estimated Creatinine Clearance 77 ml/min; Glucose 278 mg/dl (70-99); Potassium 4.4 mmol/L (3.5-5.1); Sodium 139 mmol/L (135-145); eGFR > 60.00
[2023-11-20 01:56] LABS: Amphetamines Negative (Negative); Barbiturates Negative (Negative); Benzodiazepines Negative (Negative); Buprenorphine Negative (Negative); Cocaine Negative (Negative); Methamphetamines Positive (Negative)
[2023-11-20 01:57] LABS: Marijuana Negative (Negative); Methadone Negative (Negative); Opiates Negative (Negative); Phencyclidine Negative (Negative); Tricyclic Antidepressants Negative (Negative)
[2023-11-20 02:14] LABS: Fentanyl, Urine Negative (Negative)
[2023-11-20] MEDS: ZOSYN 50 IV ×2 (03:09→08:54)
[2023-11-20 03:24] LABS: Glucose - Point of Care 248 mg/dl (70-99)
[2023-11-20 05:34] LABS: Glucose - Point of Care 223 mg/dl (70-99)
[2023-11-20 05:56] LABS: Hematocrit 36.5 % (37.0-47.0); Hemoglobin 12.2 g/dL (12.0-16.0); Mean Corp Hgb Conc. 33.4 g/dL (33.0-37.0); Mean Corpuscular Hgb 29.4 pg (27.0-31.0); Mean Platelet Volume 8.6 fL (7.4-10.4); Platelet Count 378 10^3/uL (130-400); Red Blood Cell Count 4.15 10^6/uL (4.20-5.40); Red Cell Dist. Width 14.9 % (11.5-14.5); White Blood Cell Count 21.1 10^3/uL (4.8-10.8)
[2023-11-20 06:18] LABS: ALT (SGPT) 27 U/L (0-35); AST (SGOT) 38 U/L (14-36); Albumin 4.4 g/dl (3.5-5.0); Alkaline Phosphatase 82 U/L (38-126); Blood Urea Nitrogen 14 mg/dl (7-17); Calcium 9.3 mg/dl (8.4-10.2); Carbon Dioxide 22 mmol/L (22-30); Chloride 105 mmol/L (98-107); Direct Bilirubin 0.2 mg/dl (0.0-0.4); Estimated Creatinine Clearance 77 ml/min; Glucose 221 mg/dl (70-99); Potassium 4.5 mmol/L (3.5-5.1); Sodium 141 mmol/L (135-145); Total Bilirubin 0.6 mg/dl (0.2-1.3); Total Protein 6.8 g/dl (6.3-8.2); eGFR > 60.00
[2023-11-20 07:27] LABS: Glucose - Point of Care 235 mg/dl (70-99)
[2023-11-20 08:25] LABS: Glycohemoglobin (HgbA1c) 8.4 % (4.0-5.6)
[2023-11-20] MEDS: ASPIR LOW (ENTERIC COATED) 81 MG PO (08:54)
[2023-11-20] MEDS: NOVOLOG FLEXPEN 4 UNITS SC ×3 (08:54→16:51)
[2023-11-20] MEDS: NSS 1000 IV (08:54)
[2023-11-20] MEDS: PROTONIX 40 MG PO (08:54)
[2023-11-20] MEDS: CRESTOR 10 MG PO (08:54)
[2023-11-20] MEDS: TYLENOL 650 MG PO (08:55)
[2023-11-20] MEDS: NOVOLOG FLEXPEN-MODERATE RESISTANCE 3 UNITS SC (08:57)
--- NOTE | 2023-11-20 10:44 | PTCARENOTE ---
Plan discussed with attending . Ok to dc stool for norovirus as patient is not having symptoms. Per ID, pt can be placed on standard precautions. Pt anxious to go home, she is also c/o migraine which is not new for her. Pt medicated with
PRN Tylenol, sleeping intermittently after administration. Asking for Exedrin which she takes at home, encouraged her to discuss with attending. Pt is cautious about eating, states 'I hope I can keep this down.' Emotional support provided. Pt
assisted to chair by PCT for brief time.
[2023-11-20 11:52] LABS: Glucose - Point of Care 137 mg/dl (70-99)
[2023-11-20] MEDS: NOVOLOG FLEXPEN-MODERATE RESISTANCE SC (12:51)
--- NOTE | 2023-11-20 13:26 | PTCARENOTE ---
Pt told PCT that her 1 yo grandson was being brought in to visit-reinforced unit protocol and explained that visitors under age 14 are not permitted. Pt stated 'someone told me I could.' Education provided again. Pt wanting to go down to lobby in a
wheel chair to see the baby. Education provided. Pt asking to go home. Dr. Monreal updated via TT, stated that pt is free to leave AMA but is not yet discharged. Pt updated. WIll think about it and let RN know.
--- NOTE | 2023-11-20 15:14 | PTCARENOTE ---
Pt wants to ask Dr. Monreal why she needs abx before taking her 14:00 dose Ampicillin since she is feeling fine and having no diarrhea.
[2023-11-20] MEDS: UNASYN IV ×2 (16:01→20:34)
--- NOTE | 2023-11-20 16:49 | CM ---
Patient with Dx Diabetic ketoacidosis, pancolitis. Receiving IV Abx.
Met with patient and ;
the patient resides with her and son in a 2 story townhouse.
The patient has been independent in ADLs and ambulation.
DME - crutches
No prior VN.
PCP - Kurtis López
Pharmacy - [facility]
The patient says she is hoping to go home today. The spouse is available to provide transport home.
No CM d/c needs identified.
Plan home.
[2023-11-20] MEDS: NOVOLOG FLEXPEN-MODERATE RESISTANCE 7 UNITS SC (16:50)
[2023-11-20 17:00] LABS: Glucose - Point of Care 338 mg/dl (70-99)
--- NOTE | 2023-11-20 17:21 | W.PN.HOSP.TC ---
Today's Communication/Plan
-
Advance diet
Continue antibiotics for another 24 hours.
Follow WBC.
Follow current insulin regimen with basal bolus protocol with serial Accu-Cheks.
Assessment / Plan
Assessment / Plan
Impression:
Presentation with nausea vomiting, abdominal pain.
Reported constipation later with loose stools
Increased anion gap metabolic acidosis/DKA.
Pancolitis? Ischemic versus stercoral with chronic constipation.
Prolonged QT improved.
History of cryptogenic CVA with p.o. for status post closure.
Plan:
Presentation with nausea vomiting and abdominal discomfort.
Reports constipation later improved with loose stools.
CT scan on admission consistent with pancolitis (IV contrast only)
Noted leukocytosis with left shift, although could be attributed to DKA.
GI symptoms improved and patient reports being hungry.
No diarrhea since admission.
Advance diet to low residue.
Continue antibiotics.
Monitor closely if recurrent symptoms consider reimaging and GI evaluation.
Elevated anion gap metabolic acidosis, possibly DKA anion gap increased to 23 upon admission.
Type 2 diabetes
Hemoglobin A1c 8.4
Patient reports compliance with outpatient insulin regimen.
Improved with IV hydration and while on subcutaneous insulin.
Continue basal bolus protocol with serial Accu-Cheks.
Continue preadmission dose of Lantus/NovoLog.
History of cryptogenic stroke
Stable neurologic status
Continue aspirin and statin.
Anticipated Discharge: 24 - 48 hours
Subjective/Interval History
-
Date of Service: November 20, 2023
Objective Data
-
Labs:
Laboratory Results
11/20/23
05:43
WBC 21.1 H
Hgb 12.2
Hct 36.5 L
Plt Count 378 D
Sodium 141
Potassium 4.5
Chloride 105
Carbon Dioxide 22
BUN 14
Creatinine 0.6
Glucose 221 H
Calcium 9.3
Total Bilirubin 0.6
AST 38 H
ALT 27
Alkaline Phosphatase 82
Vital Signs:
Vital Signs
Temp Pulse Resp BP Pulse Ox
98.7 F 117 40 172/87 97
11/20/23 15:00 11/20/23 16:06 11/20/23 16:06 11/20/23 15:13 11/20/23 10:44
I&O
11/19/23 11/20/23 11/21/23
06:59 06:59 06:59
Intake Total 1500 / 1500 890 / 890
Balance 1500 / 1500 890 / 890
Physical Exam
-
General: Well Developed and No Apparent Distress
HEENT: Normocephalic, Atraumatic and Moist Mucous Membranes
Respiratory: Clear to Auscultation
Cardiac: Regular Rhythm and S1/S2; Negative Murmur, Rub or Gallop
GI: Soft, Nontender, Nondistended and Normal Bowel Sounds; Negative Organomegaly
Rectal: Deferred by Provider
Musculoskeletal: No Clubbing, No Cyanosis and No Edema
Skin: Negative Rash
Neuro: Nonfocal/Grossly Intact
--- NOTE | 2023-11-20 18:44 | PTCARENOTE ---
Pt continues to waver between staying and leaving AMA. aware, did come to bedside again this afternoon to clarify with patient why he encourages her to stay in hospital overnight. Will dc in am if she does not leave AMA this evening.
[2023-11-20 21:31] LABS: Glucose - Point of Care 286 mg/dl (70-99)
[2023-11-20] MEDS: LANTUS 0.07 UNITS SC (22:12)
[2023-11-20] MEDS: BENADRYL 75 MG PO (22:13)
[2023-11-20] MEDS: MELATONIN 10 MG PO (22:13)
--- NOTE | 2023-11-21 00:29 | PTCARENOTE ---
Assumed care from day RN. Pt was deciding if she was going to sign out AMA this evening. Pt being tearful. After having a conversation with Pt about pros and cons along with emotional support. Pt has decided to stay the night. Pt requested her
come in to help her wash and give emotional support and he did so. Pt refusing to keep BP cuff on all night, saying ' i cant sleep with that on'. Pt agreeing to have BP taken at 2300 and 0430.
[2023-11-21] MEDS: UNASYN IV ×2 (02:18→08:13)
[2023-11-21 06:14] LABS: % Basophils 0.4 % (0-2); % Eosinophils 1.3 % (0-6); % Immature Granulocytes 0.5 % (0-0.5); % Lymphocytes 24.2 % (20.5-51.1); % Monocytes 6.3 % (1.7-9.3); % Neutrophils 67.3 % (42.2-75.2); Absolute Basophils 0.1 10^3/uL (0-0.2); Absolute Eosinophils 0.2 10^3/uL (0-0.7); Absolute Immature Granulocytes 0.1 10^3/uL (0-0.05); Absolute Lymphocytes 3.2 10^3/uL (1.2-3.4); Absolute Monocytes 0.8 10^3/uL (0.1-0.6); Absolute Neutrophils 8.9 10^3/uL (1.4-6.5); Hematocrit 34.2 % (37.0-47.0); Hemoglobin 11.3 g/dL (12.0-16.0); Mean Corpuscular Hgb 29.2 pg (27.0-31.0); Mean Corpuscular Volume 88.4 fL (81.0-99.0); Mean Platelet Volume 8.5 fL (7.4-10.4); Nucleated Red Blood Cells % 0 %; Platelet Count 304 10^3/uL (130-400); Red Blood Cell Count 3.87 10^6/uL (4.20-5.40); Red Cell Dist. Width 14.6 % (11.5-14.5); White Blood Cell Count 13.3 10^3/uL (4.8-10.8)
[2023-11-21 06:18] VITALS: BP 155/80
[2023-11-21 06:28] LABS: Blood Urea Nitrogen 14 mg/dl (7-17); Calcium 9.2 mg/dl (8.4-10.2); Carbon Dioxide 26 mmol/L (22-30); Chloride 106 mmol/L (98-107); Estimated Creatinine Clearance 77 ml/min; Glucose 175 mg/dl (70-99); Potassium 3.8 mmol/L (3.5-5.1); Sodium 141 mmol/L (135-145); eGFR > 60.00
[2023-11-21] MEDS: ASPIR LOW (ENTERIC COATED) 81 MG PO (08:15)
[2023-11-21] MEDS: PROTONIX 40 MG PO (08:15)
[2023-11-21] MEDS: CRESTOR 10 MG PO (08:16)
[2023-11-21] MEDS: NOVOLOG FLEXPEN-MODERATE RESISTANCE 1 UNITS SC (08:17)
[2023-11-21] MEDS: NOVOLOG FLEXPEN 4 UNITS SC (08:17)
[2023-11-21 08:28] LABS: Glucose - Point of Care 169 mg/dl (70-99)
--- NOTE | 2023-11-21 08:50 | PTCARENOTE ---
Pt is AAOx3, pt is demanding a reg diet so she can have an omelette with green peppers and serrato. Insisting I call the DRRoby will not take meds in my presence is threatening to leave AMA and has stated she is not taking any more ABTs
[2023-11-21] MEDS: TYLENOL 650 MG PO (09:27)
[2023-11-21 09:31] VITALS: BP 197/89
--- NOTE | 2023-11-21 09:32 | W.DS.TRANS ---
DC Summary - [employer]. [employer] )
-
Discharge Instructions:
Discharge Diagnosis/Procedures Presentation with nausea vomiting, abdominal
pain.
Reported constipation later with loose stools
Increased anion gap metabolic acidosis/DKA.
Pancolitis? Ischemic versus stercoral with
chronic constipation.
Prolonged QT improved.
History of cryptogenic CVA with p.o. for status
post closure.
Diet Diabetic, Carb Controlled
Instructions:
Stand-Alone Forms:
Changes to Home Medications: No
Discharge Medications:
DC Medications w/original date entered in [employer]
insulin glargine 100 unit/mL (3 mL) subcutaneous pen (Lantus Solostar U-100 Insulin) 7 units SC HS Diabetes 08/19/21
rosuvastatin 10 mg tablet 10 mg PO DAILY High Cholesterol 08/19/21
cyanocobalamin (vitamin B-12) 1,000 mcg sublingual tablet 1,000 mcg sublingual DAILY Supplement 11/20/21
diphenhydramine HCl 25 mg capsule (Benadryl) 75 mg PO HS Sleep 11/20/21
naratriptan 2.5 mg tablet 2.5 mg PO BIDPRN PRN migraine 04/19/23
rimegepant 75 mg disintegrating tablet (Nurtec ODT) 75 mg PO Q48H 04/19/23
aspirin 81 mg tablet,delayed release 81 mg PO DAILY Blood Clot Prevention/Tx 11/19/23
insulin aspart U-100 100 unit/mL subcutaneous solution 4 unit SC MEALS Diabetes 11/19/23
melatonin 5 mg chewable tablet 10 mg PO HS Sleep 11/19/23
prochlorperazine maleate 10 mg tablet 10 mg PO DAILYPRN PRN nausea 11/19/23
amoxicillin 875 mg-potassium clavulanate 125 mg tablet 1 tab PO BID #10 tabs 11/21/23
Home Medication Changes
Pending Results: No
[2023-11-21 09:43] VITALS: BP 181/90
--- NOTE | 2023-11-21 09:55 | PTCARENOTE ---
Pt for dc, IV out BP running high MD aware , pt runs high MD did order IV med but IV is out. BP coming down, pt insisting on DC. ok with pt going home.
--- NOTE | 2023-11-21 09:56 | CM ---
Spoke with patient who was preparing for discharge. The patient says she feels ready for discharge home today. Her will provide transport home.
No CM d/c needs identified.
Plan home today.
[2023-11-21 09:57] LABS: Glucose - Point of Care 217 mg/dl (70-99)
--- NOTE | 2023-11-21 10:26 | PTCARENOTE ---
Pt left walking with and staff member
== END 2023-11-21 10:34 | disposition home or self-care (01) | DRG 391 ==
LOC: IMU 21:18
PROVIDERS: Physician Assistant Medical; ADMITTING PHYSICIAN Hospitalist; ATTENDING PHYSICIAN Internal Medicine; EMERGENCY PHYSICIAN Student in an Organized Health Care Education/Training Program; FAMILY PHYSICIAN Family Medicine
DX: K52.9 Noninfective gastroenteritis and colitis, unspecified (principal); E11.10 Type 2 diabetes mellitus with ketoacidosis without coma; E87.3 Alkalosis; I10 Essential (primary) hypertension; E78.00 Pure hypercholesterolemia, unspecified; E86.0 Dehydration; F17.210 Nicotine dependence, cigarettes, uncomplicated; G43.909 Migraine, unspecified, not intractable, without status migrainosus; G47.00 Insomnia, unspecified; R94.31 Abnormal electrocardiogram [ECG] [EKG]; Z79.4 Long term (current) use of insulin; Z79.82 Long term (current) use of aspirin; Z79.899 Other long term (current) drug therapy; Z86.73 Personal history of transient ischemic attack (TIA), and cerebral infarction without residual deficits; Z87.74 Personal history of (corrected) congenital malformations of heart and circulatory system
CPT/HCPCS: 74177; 80048; 80053; 80306; 80307; 82010; 82248; 82805; 82962; 83036; 83605; 83690; 83735; 84703; 85025; 85027; 86850; 86900; 86901; 93005; 99285; 99406; Q9967

== ENCOUNTER → 2023-11-25 06:26 | Day surgery (SDC) | payer OTHER, SELFPAY ==
[2023-11-25 08:20] LABS: Glucose - Point of Care 252 mg/dl (70-99)
== END ==
LOC: GI 06:26
PROVIDERS: ATTENDING PHYSICIAN Internal Medicine Gastroenterology
DX: K22.89 Other specified disease of esophagus (principal); K31.89 Other diseases of stomach and duodenum; R10.84 Generalized abdominal pain; R19.7 Diarrhea, unspecified; R13.10 Dysphagia, unspecified; R12 Heartburn; K22.70 Barrett's esophagus without dysplasia; B37.81 Candidal esophagitis; K31.A0 Gastric intestinal metaplasia, unspecified
CPT/HCPCS: 43239; 88305; 82962; 88342

== ENCOUNTER 2024-05-20 19:21 | Emergency (ER) | payer OTHER, SELFPAY ==
[2024-05-20 19:24] VITALS: BP 198/107
[2024-05-20 19:52] LABS: % Basophils 0.4 % (0-2); % Eosinophils 1.1 % (0-6); % Immature Granulocytes 0.3 % (0-0.5); % Monocytes 6.1 % (1.7-9.3); % Neutrophils 73.1 % (42.2-75.2); Absolute Basophils 0.1 10^3/uL (0-0.2); Absolute Eosinophils 0.1 10^3/uL (0-0.7); Absolute Lymphocytes 2.3 10^3/uL (1.2-3.4); Absolute Monocytes 0.7 10^3/uL (0.1-0.6); Absolute Neutrophils 8.7 10^3/uL (1.4-6.5); Hematocrit 40.6 % (37.0-47.0); Mean Corpuscular Hgb 27.1 pg (27.0-31.0); Mean Corpuscular Volume 84.8 fL (81.0-99.0); Nucleated Red Blood Cells % 0 %; Platelet Count 358 10^3/uL (130-400); Red Blood Cell Count 4.79 10^6/uL (4.20-5.40); Red Cell Dist. Width 14.3 % (11.5-14.5); White Blood Cell Count 11.9 10^3/uL (4.8-10.8)
[2024-05-20 20:07] LABS: COVID-19 Antigen Negative (Negative)
[2024-05-20 20:10] LABS: ALT (SGPT) 38 U/L (0-35); AST (SGOT) 41 U/L (14-36); Albumin 4.9 g/dl (3.5-5.0); Alkaline Phosphatase 116 U/L (38-126); Blood Urea Nitrogen 18 mg/dl (7-17); Calcium 9.7 mg/dl (8.4-10.2); Carbon Dioxide 26 mmol/L (22-30); Chloride 103 mmol/L (98-107); Glucose 311 mg/dl (70-99); Potassium 4.4 mmol/L (3.5-5.1); Sodium 140 mmol/L (135-145); Total Bilirubin 0.4 mg/dl (0.2-1.3); Total Protein 7.6 g/dl (6.3-8.2); eGFR > 60.00
[2024-05-20 20:17] LABS: NT-proBNP 2290 pg/ml; Troponin I 0.032 ng/ml
[2024-05-20 21:04] VITALS: BP 178/101
[2024-05-20 21:19] VITALS: BMI 25.6
[2024-05-20] MEDS: DUONEB 9 ML INH (21:24)
[2024-05-20 23:12] VITALS: BP 186/93
--- NOTE | 2024-05-20 23:27 | ED.GENMED ---
History of Present Illness
General
Chief Complaint: Breathing Problem
Source: patient and family
Time Seen by Provider: 05/20/24 20:42
History of Present Illness
History of Present Illness:
This is a 48-year-old female presents with shortness of breath. Patient is a persistent smoker. The patient states for the last 2 days she has been short of breath. She states she noticed that worse last night. She also admits that every morning
she wakes up and coughs a lot. Her family has been on her about quitting smoking. Mom states that she also does not have the best diet. She does have a history of diabetes as well and is on an insulin pump. No fevers. No hemoptysis. No leg
swelling. She has albuterol MDI at home but states it has not been helping
Past History
Past History
ED Past Medical History: CVA (X 2), HTN, Hypercholesterolemia, IDDM and Other (migraines); Negative CAD
ED Past Surgical History: Cardiac (Loop recorder and then it was removed, Closure of PFO), , Gynecological (Lap for precancerous cervical cells, ) and Orthopedic (Left great toe surgery, )
Social History
Tobacco: Smoker
Alcohol: Occasional
Drug: None
Personal:
Living: with family
Employment: Employed
Family History
Family History: Adopted
Phy Exam
Physical Exam
Physical Exam:
CONSTITUTIONAL Patient alert and oriented to person, place and time. Well-appearing. Vital signs reviewed.
HEAD atraumatic, normocephalic.
EYES eyelids normal to inspection, Extraocular muscles intact, Conjunctiva normal, Sclera normal.
NECK normal range of motion, Trachea midline, no jugular venous distention.
RESPIRATORY CHEST No respiratory distress noted, Chest expansion equal, wheezing bilaterally
CARDIOVASCULAR regular and tachycardic, Heart sounds normal.
BACK normal inspection, no obvious deformities
UPPER EXTREMITY range of motion normal, Motor strength normal, no cyanosis, no edema.
LOWER EXTREMITY range of motion normal, Motor strength normal, no cyanosis, no edema.
NEURO Speech normal, No focal motor deficits, [place] coma scale 15, Memory normal, Cranial Nerves intact to screening exam.
SKIN skin warm, dry, and normal in color.
Scores
Heart Failure Risk
Heart Failure Risk Score: Not Applicable
Course
Orders/Labs/Results
Orders:
Orders
05/20/24 19:22
Electrocardiogram (*1) Urgent
Reason for Study: Shortness of Breath
EKG- Treatment ONCE
05/20/24 19:27
CR Chest - 2 Views Urgent
Comment:
Reason For Exam: sob
05/20/24 19:40
COVID-19 Antigen Urgent
Source: Nasal Swab
Complete Blood Count/With Diff Urgent
Comprehensive Metabolic Panel Urgent
NT-proBNP Urgent
Troponin I Urgent
Influenza A+B Rapid Molecular Urgent
SOUMYA Source: Nasal Swab
Specimen Description:
05/20/24 21:23
Ipratropium/Albuterol Sulfate [Duoneb] 9 ml .ROUTE .STK-MED ONE
Ipratropium/Albuterol Sulfate [Duoneb] 9 ml INH R NOW ONE
05/20/24 23:24
Prednisone [Deltasone] 50 mg PO NOW STA
Abnormal Lab Results
05/20/24
19:40
WBC 11.9 H 10^3/uL
(4.8-10.8)
MCHC 32.0 L g/dL
(33.0-37.0)
Absolute Neuts (auto) 8.7 H 10^3/uL
(1.4-6.5)
Absolute Monos (auto) 0.7 H 10^3/uL
(0.1-0.6)
Lymphocytes % 19.0 L %
(20.5-51.1)
BUN 18 H mg/dl
(7-17)
Glucose 311 H mg/dl
(70-99)
AST 41 H U/L
(14-36)
ALT 38 H U/L
(0-35)
05/20/24 19:40
05/20/24 19:40
Vital Signs
Initial and Last Documented VS:
Initial Vital Signs
Temp Pulse Resp BP Pulse Ox
98.2 F 118 20 198/107 99
05/20/24 19:24 05/20/24 19:24 05/20/24 19:24 05/20/24 19:24 05/20/24 19:24
Last Documented Vital Signs
Temp Pulse Resp BP Pulse Ox
98.2 F 99 20 186/93 98
05/20/24 19:24 05/20/24 23:59 05/20/24 23:59 05/20/24 23:12 05/20/24 23:59
MDM/Problems Addressed
Differential Diagnosis Includes:
Pneumonia, pneumothorax, COPD
MDM/Problems Addressed:
Acute COPD exacerbation, hyperglycemia, chronic tobacco abuse
*Radiology
Radiology exam reviewed: preliminary read by ED provider (No acute infiltrate)
*EKG
Interpreted by ED Provider?: Yes
Interpretation: abnormal
Rate: tachycardiac
Rhythm: sinus
Carbon: normal axis
QRS Pattern: poor R-wave progression
Ischemia: non-specific ST changes
*Laser Machine Operator Interpretation
Rate: tachycardiac
Interpretation: abnormal
Rhythm: sinus
*Critical Care Note
Total Time (30-74mins, 75-104mins- exclusive of procedures): Not Applicable
Data Reviewed
Review of Other/Old Records Reveals: Labs
Source: patient and family
Prescriptions/Medications Considered But Not Given:
Consider antibiotics but no pneumonia or sputum changes
Patient Management
Escalation/DeEscalation of care consider admission/obs:
Patient counseled extensively on the importance of smoking cessation. Patient also counseled importance of proper diet as she states she was eating waffles earlier tonight. I did recommend close follow-up with endocrinology tomorrow to discuss any
adjustments of insulin in light of her prednisone. She may need steroids at this time. Continue albuterol. She did clear up nicely after hour-long treatment. No further wheezing on reassessment.
ED Attending Note
-
Portions of this chart may have been created with voice recognition software.� Occasional wrong word or��sound alike� substitutions may have occurred due to the inherent limitations of voice recognition software.
Discharge Plan
Departure
Patient Disposition: Home (Routine Discharge)
Date of Disposition: 05/20/24
Time of Disposition: 23:28
Patient with high blood pressure during this ER visit?: Yes
Discharge Problem:
COPD with acute exacerbation
Instructions: Quitting smoking for adults, Exacerbation of COPD (DC)
Prescriptions:
New
prednisone 50 mg tablet
50 mg PO DAILY Qty: 5 0RF
albuterol sulfate 2.5 mg /3 mL (0.083 %) solution for nebulization
2.5 mg inhalation Q4H PRN (Reason: shortness of breath or wheezing) Qty: 180 0RF
No Action
rosuvastatin 10 MG tablet
10 mg PO DAILY
insulin glargine [Lantus Solostar U-100 Insulin] 300 UNITS/3 ML insulin pen
7 units SC HS
cyanocobalamin (vitamin B-12) 1,000 mcg Tablet, Sublingual
1,000 mcg SUBLINGUAL DAILY
diphenhydramine HCl [Benadryl] 25 ng Capsule
75 mg PO HS
naratriptan 2.5 mg tablet
2.5 mg PO BIDPRN PRN (Reason: migraine)
Nurtec ODT 75 mg tablet,disintegrating
75 mg PO Q48H
prochlorperazine maleate 10 mg Tablet
10 mg PO DAILYPRN PRN (Reason: nausea)
aspirin 81 mg Tablet,Delayed Release (Dr/Ec)
81 mg PO DAILY
insulin aspart U-100 100 unit/mL Solution
4 unit SC MEALS
melatonin 5 mg Tablet,Chewable
10 mg PO HS
amoxicillin-pot clavulanate 875-125 mg tablet
1 tab PO BID Qty: 10 0RF
Referrals:
Kurtis López DO [Family Provider] -
Activity Restrictions/Additional Instructions:
Please use albuterol nebulizer every 4 hours while awake for the next 2 days. Then use it every 4 hours as needed for shortness of breath or cough. Return immediately for uncontrollable high blood sugars, chest pain, coughing up blood, fevers,
shortness of breath or any other concerns. Please stop smoking.
Interventions
Interventions:
*Risk Screen - Suicide Last Done: 05/20/24 21:22
*General Assessment Last Done: 05/20/24 19:24
*Neglect/Abuse Screening Last Done: 05/20/24 21:22
*ED- Fall Risk Assessment Last Done: 05/20/24 21:22
*ED COVID-19 Vaccine History Last Done: 05/20/24 21:22
*Nursing Disposition Last Done: 05/20/24 23:59
ED- Cardiac Assessment Last Done: 05/20/24 21:20
ED- Pulmonary Assessment Last Done: 05/20/24 21:20
Discharge Date and Time
Discharge Date/Time: 05/21/24 00:01
Print Language: SYRIAC
[2024-05-20] MEDS: DELTASONE 50 MG PO (23:35)
== END 2024-05-21 00:01 | disposition home or self-care (01) ==
LOC: EMR 19:21
PROVIDERS: Surgery; EMERGENCY PHYSICIAN Emergency Medicine; FAMILY PHYSICIAN Family Medicine
DX: J44.1 Chronic obstructive pulmonary disease with (acute) exacerbation (principal); E11.65 Type 2 diabetes mellitus with hyperglycemia; E78.00 Pure hypercholesterolemia, unspecified; I10 Essential (primary) hypertension; F17.200 Nicotine dependence, unspecified, uncomplicated; Z79.4 Long term (current) use of insulin; Z86.73 Personal history of transient ischemic attack (TIA), and cerebral infarction without residual deficits; Z96.41 Presence of insulin pump (external) (internal); Z11.52 Encounter for screening for COVID-19
CPT/HCPCS: 99285; 94640; 71046; 80053; 83880; 84484; 85025; 87502; 87811; 93005

== ENCOUNTER 2024-07-13 16:45 | Emergency (ER) | payer OTHER, SELFPAY ==
[2024-07-13 16:52] VITALS: BP 177/109
[2024-07-13 17:08] LABS: % Basophils 0.4 % (0-2); % Eosinophils 0.5 % (0-6); % Immature Granulocytes 0.5 % (0-0.5); % Lymphocytes 11.8 % (20.5-51.1); % Neutrophils 81.8 % (42.2-75.2); Absolute Basophils 0.1 10^3/uL (0-0.2); Absolute Eosinophils 0.1 10^3/uL (0-0.7); Absolute Immature Granulocytes 0.1 10^3/uL (0-0.05); Absolute Lymphocytes 1.8 10^3/uL (1.2-3.4); Absolute Monocytes 0.7 10^3/uL (0.1-0.6); Absolute Neutrophils 12.2 10^3/uL (1.4-6.5); Hematocrit 37.1 % (37.0-47.0); Hemoglobin 11.7 g/dL (12.0-16.0); Mean Corp Hgb Conc. 31.5 g/dL (33.0-37.0); Mean Corpuscular Hgb 25.8 pg (27.0-31.0); Mean Corpuscular Volume 81.9 fL (81.0-99.0); Mean Platelet Volume 9.4 fL (7.4-10.4); Nucleated Red Blood Cells % 0 %; Platelet Count 378 10^3/uL (130-400); Red Blood Cell Count 4.53 10^6/uL (4.20-5.40); Red Cell Dist. Width 14.9 % (11.5-14.5); White Blood Cell Count 14.9 10^3/uL (4.8-10.8)
[2024-07-13 17:23] LABS: HCG, Serum Qualitative Screen Negative
[2024-07-13 17:27] LABS: ALT (SGPT) 35 U/L (0-35); AST (SGOT) 40 U/L (14-36); Albumin 4.1 g/dl (3.5-5.0); Alkaline Phosphatase 99 U/L (38-126); Blood Urea Nitrogen 18 mg/dl (7-17); Calcium 8.8 mg/dl (8.4-10.2); Carbon Dioxide 26 mmol/L (22-30); Chloride 105 mmol/L (98-107); Glucose 421 mg/dl (70-99); Potassium 4.4 mmol/L (3.5-5.1); Sodium 138 mmol/L (135-145); Total Bilirubin 0.4 mg/dl (0.2-1.3); Total Protein 6.6 g/dl (6.3-8.2); eGFR > 60.00
[2024-07-13 17:42] LABS: Urine Albumin 3+ (Neg - Trace); Urine Bilirubin Negative (Negative); Urine Character Clear (Clear); Urine Color Yellow; Urine Glucose 4+ (Negative); Urine Ketone Negative (Negative); Urine Leukocyte Negative (Negative); Urine Nitrite Negative (Negative); Urine Occult Blood 1+ (Negative); Urine Specific Gravity 1.015 (<1.030); Urine Urobilinogen Negative (Neg - 1+)
[2024-07-13 18:04] LABS: Urine Red Blood Cell 0-2 /HPF (0-2); Urine Squamous Cell 16-20 /LPF (Few)
[2024-07-13 18:05] LABS: Urine Bacteria Few (Negative)
[2024-07-13 21:40] LABS: Glucose - Point of Care 254 mg/dl (70-99)
[2024-07-13 22:01] VITALS: BP 174/88
--- NOTE | 2024-07-13 22:08 | ED.GENMED ---
History of Present Illness
General
Chief Complaint: Headache
Source: patient
Exam Limitations: none
Time Seen by Provider: 07/13/24 21:25
Nursing documentation reviewed up to this point in time: agreed with
History of Present Illness
History of Present Illness:
Patient to ED with complaint of migraine x 2 days. SHe has a history of migraines and rports this was a typical migraine but did not respond initially to her medication. Today pain resolved. SHe was advised by neurologist to come to ED as she has
prior history of CVA. Brought to ED by mother for eval. SHe is now pain free.
Past History
Past History
ED Past Medical History: CVA (X 2), HTN, Hypercholesterolemia, IDDM and Other (migraines); Negative CAD
ED Past Surgical History: Cardiac (Loop recorder and then it was removed, Closure of PFO), , Gynecological (Lap for precancerous cervical cells, ) and Orthopedic (Left great toe surgery, )
Social History
Tobacco: Smoker
Alcohol: Occasional
Drug: None
Personal:
Living: with family
Employment: Employed
Family History
Family History: Adopted
Review of Systems
Review of Systems
Allergies reviewed?: Yes
All Other Systems: ROS reviewed and negative except as documented in HPI and ROS
Constitutional: Reports no symptoms
EENT: Reports no symptoms
Respiratory: Reports no symptoms
Cardiac: Reports no symptoms
ABD/GI: Reports no symptoms
: Reports no symptoms
Musculoskeletal: Reports no symptoms
Skin: Reports no symptoms
Neurological: Reports headache
Psychiatric: Reports no symptoms
Phy Exam
General Physical Exam
General Presentation: well appearing and no apparent distress
General age: appears stated age
General Skin: warm and dry
General Habitus: normal
General Mental: alert
ENT Exam
ENT Exam: EOMI and TM's normal
Eye Exam
Eye Exam: PERRL, EOMI and conjunctiva normal
Pulmonary Exam
Pulmonary Exam: lungs clear, no respiratory distress and chest non tender
Neurological Exam
Neurological Exam: alert, oriented x3, CN II-XII intact, no motor deficits, no sensory deficits, speech normal and normal gait
NIH Stroke Score
Level of Consciousness: 0 - Alert
LOC questions: 0-Answers both correctly
LOC Commands: 0-Performs both correctly
Best Gaze: 0-Normal
Visual Lewis: 0=Normal, no visual loss
Facial palsy: 0=Normal, symmetrical
Motor - Right Arm: 0=No drift 10 seconds
Motor - Left Arm: 0=No drift 10 seconds
Motor - Right Le-No drift 5 seconds
Motor - Left Le-No drift 5 seconds
Limb Ataxia: 0-Absent
Sensation: 0-Normal
Best Language: 0-No aphasia
Dysarthria: 0-Normal
Extinction and Inattention: 0-No abnormality
Total Score:: 0
[place] Coma Scale
Eye Opening: Spontaneous
Verbal Response: Oriented
Motor Response: Obeys Commands
GCS Total Score: 15
Mental
Mental Status: oriented to person, oriented to place, oriented to time and usual mental status
Cranial
Cranial Nerves: normal
EOM (CN3/4/6): intact
Motor
Seizure Activity: none
Gait: normal
Tremors: none
Right upper extremity: 4
Right lower extremity: 4
Left upper extremity: 4
Left lower extremity: 4
Bilateral upper extremities: 4
Bilateral lower extremities: 4
Sensory
Sensory Exam: intact
Musculoskeletal Exam
Musculoskeletal Exam: full ROM and neuro vasc intact
Skin Exam
Skin Exam: normal color, warm/dry and no rash
Psychiatric Exam
Psychiatric Exam: normal mood/affect
Course
Orders/Labs/Results
Orders:
Orders
07/13/24 16:56
CT Head W/o Iv Contrast Urgent
Comment:
Reason For Exam: headache
Test Result ONCE
07/13/24 17:02
Complete Blood Count/With Diff Urgent
Comprehensive Metabolic Panel Urgent
HCG, Serum Qualitative Screen Urgent
07/13/24 17:19
Urine Microscopic Reflex Cult Urgent
Urine Reflex Culture from UA [Urinalysis Reflex To Culture] Urgent
Date Specimen was Collected: 07/13/24
Time Specimen was Collected: 17:10
Abnormal Lab Results
07/13/24 07/13/24 07/13/24
17:02 17:19 21:39
WBC 14.9 H 10^3/uL
(4.8-10.8)
Hgb 11.7 L g/dL
(12.0-16.0)
MCH 25.8 L pg
(27.0-31.0)
MCHC 31.5 L g/dL
(33.0-37.0)
RDW 14.9 H %
(11.5-14.5)
Abs Immat Gran (auto) 0.1 H 10^3/uL
(0-0.05)
Absolute Neuts (auto) 12.2 H 10^3/uL
(1.4-6.5)
Absolute Monos (auto) 0.7 H 10^3/uL
(0.1-0.6)
Neutrophils % 81.8 H %
(42.2-75.2)
Lymphocytes % 11.8 L %
(20.5-51.1)
BUN 18 H mg/dl
(7-17)
Glucose 421 H mg/dl
(70-99)
AST 40 H U/L
(14-36)
Ur Occult Blood Reflex 1+ A
(Negative)
Urine Bacteria (Reflex) Few A
(Negative)
Urine Glucose 4+ A
(Negative)
Urine Albumin (Reflex) 3+ A
(Neg - Trace)
POC Glucose 254 H mg/dl
(70-99)
07/13/24 17:02
07/13/24 17:02
Vital Signs
Initial and Last Documented VS:
Initial Vital Signs
Temp Pulse Resp BP Pulse Ox
98.0 F 114 20 177/109 99
07/13/24 16:52 07/13/24 16:52 07/13/24 16:52 07/13/24 16:52 07/13/24 16:52
Last Documented Vital Signs
Temp Pulse Resp BP Pulse Ox
98.0 F 97 20 174/88 98
07/13/24 16:52 07/13/24 22:01 07/13/24 22:01 07/13/24 22:01 07/13/24 22:01
*Radiology
Radiology exam reviewed: radiology read reviewed
*Pulse Oximetry
Patient hypoxic: no
*Critical Care Note
Total Time (30-74mins, 75-104mins- exclusive of procedures): Not Applicable
Update Note
Update Note:
Patient to ED with report of migraine x 2 days that did not initially respond to her migraine medication. Today pain resolved but states her neurologist requested she come to ED for imaging. She is awake alert and oriented. VSS. Neuro exam is
unremarkable. CT neg for acute findings. SHe remains pain free. Will discharge home and she will follow up with neuro on as scheduled. given instructions on s/s to return to ED and she is agreeable to plan.
ED Attending Note
-
Portions of this chart may have been created with voice recognition software.� Occasional wrong word or��sound alike� substitutions may have occurred due to the inherent limitations of voice recognition software.
Discharge Plan
Departure
Patient Disposition: Home (Routine Discharge)
Date of Disposition: 07/13/24
Time of Disposition: 21:44
Patient with high blood pressure during this ER visit?: No
Condition: Good
Covid-19: Not Applicable
Discharge Problem:
Migraine
Instructions: Migraines (DC)
Prescriptions:
No Action
rosuvastatin 10 MG tablet
10 mg PO DAILY
insulin glargine [Lantus Solostar U-100 Insulin] 300 UNITS/3 ML insulin pen
7 units SC HS
cyanocobalamin (vitamin B-12) 1,000 mcg Tablet, Sublingual
1,000 mcg SUBLINGUAL DAILY
diphenhydramine HCl [Benadryl] 25 ng Capsule
75 mg PO HS
naratriptan 2.5 mg tablet
2.5 mg PO BIDPRN PRN (Reason: migraine)
Nurtec ODT 75 mg tablet,disintegrating
75 mg PO Q48H
prochlorperazine maleate 10 mg Tablet
10 mg PO DAILYPRN PRN (Reason: nausea)
aspirin 81 mg Tablet,Delayed Release (Dr/Ec)
81 mg PO DAILY
insulin aspart U-100 100 unit/mL Solution
4 unit SC MEALS
melatonin 5 mg Tablet,Chewable
10 mg PO HS
amoxicillin-pot clavulanate 875-125 mg tablet
1 tab PO BID Qty: 10 0RF
prednisone 50 mg tablet
50 mg PO DAILY Qty: 5 0RF
albuterol sulfate 2.5 mg /3 mL (0.083 %) solution for nebulization
2.5 mg inhalation Q4H PRN (Reason: shortness of breath or wheezing) Qty: 180 0RF
Referrals:
Kurtis López DO [Family Provider] - Tomorrow
Interventions
Interventions:
*Risk Screen - Suicide Last Done: 07/13/24 22:01
*General Assessment Last Done: 07/13/24 16:52
*Neglect/Abuse Screening Last Done: 07/13/24 22:01
*ED- Fall Risk Assessment Last Done: 07/13/24 22:01
*ED COVID-19 Vaccine History Last Done: 07/13/24 22:01
*Nursing Disposition Last Done: 07/13/24 22:03
ED- Neurological Assessment Last Done: 07/13/24 22:01
Discharge Date and Time
Discharge Date/Time: 07/13/24 22:04
Print Language: KYRGYZ
== END 2024-07-13 22:04 | disposition home or self-care (01) ==
LOC: EMR 16:45
PROVIDERS: Emergency Medicine; Student in an Organized Health Care Education/Training Program; EMERGENCY PHYSICIAN Emergency Medicine; FAMILY PHYSICIAN Family Medicine
DX: G43.909 Migraine, unspecified, not intractable, without status migrainosus (principal); I10 Essential (primary) hypertension; E11.9 Type 2 diabetes mellitus without complications; E78.00 Pure hypercholesterolemia, unspecified; F17.200 Nicotine dependence, unspecified, uncomplicated; Z86.73 Personal history of transient ischemic attack (TIA), and cerebral infarction without residual deficits; Z79.4 Long term (current) use of insulin
CPT/HCPCS: 99284; 70450; 80053; 81003; 81015; 82962; 84703; 85025

== ENCOUNTER 2024-07-24 16:39 | Emergency (ER) | payer OTHER, SELFPAY ==
[2024-07-24 16:42] VITALS: BP 178/104
[2024-07-24 17:12] LABS: % Basophils 0.6 % (0-2); % Eosinophils 0.7 % (0-6); % Immature Granulocytes 0.6 % (0-0.5); % Lymphocytes 10.9 % (20.5-51.1); % Neutrophils 82.2 % (42.2-75.2); Absolute Basophils 0.1 10^3/uL (0-0.2); Absolute Eosinophils 0.1 10^3/uL (0-0.7); Absolute Immature Granulocytes 0.1 10^3/uL (0-0.05); Absolute Lymphocytes 1.5 10^3/uL (1.2-3.4); Absolute Monocytes 0.7 10^3/uL (0.1-0.6); Absolute Neutrophils 11.4 10^3/uL (1.4-6.5); Hematocrit 36.3 % (37.0-47.0); Hemoglobin 11.3 g/dL (12.0-16.0); Mean Corp Hgb Conc. 31.1 g/dL (33.0-37.0); Mean Corpuscular Hgb 25.1 pg (27.0-31.0); Mean Corpuscular Volume 80.5 fL (81.0-99.0); Mean Platelet Volume 9.1 fL (7.4-10.4); Nucleated Red Blood Cells % 0 %; Platelet Count 395 10^3/uL (130-400); Red Blood Cell Count 4.51 10^6/uL (4.20-5.40); Red Cell Dist. Width 15.2 % (11.5-14.5); White Blood Cell Count 13.8 10^3/uL (4.8-10.8)
[2024-07-24 17:22] LABS: ALT (SGPT) 67 U/L (0-35); AST (SGOT) 81 U/L (14-36); Albumin 3.7 g/dl (3.5-5.0); Alkaline Phosphatase 130 U/L (38-126); Blood Urea Nitrogen 12 mg/dl (7-17); Calcium 9.2 mg/dl (8.4-10.2); Carbon Dioxide 25 mmol/L (22-30); Chloride 106 mmol/L (98-107); D-Dimer 0.89 ug/mlFEU (0.00-0.50); Glucose 189 mg/dl (70-99); Potassium 3.7 mmol/L (3.5-5.1); Sodium 139 mmol/L (135-145); Total Bilirubin 0.4 mg/dl (0.2-1.3); Total Protein 6.6 g/dl (6.3-8.2); eGFR > 60.00
[2024-07-24 18:15] VITALS: BMI 23.3
[2024-07-24 18:17] VITALS: BP 162/106
[2024-07-24 18:18] VITALS: BP 162/106
--- NOTE | 2024-07-24 18:28 | EDRN ---
I. Dorian Kelly SENIOR MARKETING MANAGER in room w/ pt. IV placed just distal to AC.
--- NOTE | 2024-07-24 18:31 | ED.GENMED ---
History of Present Illness
General
Chief Complaint: Breathing Problem
Source: patient
Exam Limitations: none
Time Seen by Provider: 07/24/24 18:21
Nursing documentation reviewed up to this point in time: agreed with
History of Present Illness
History of Present Illness:
48 yo female w h/o TIA, Migraines, Smoker, IDDM, HLD, COPD presents for wheezing, cough past 3 weeks, no relief with Albuterol and Advair inhalers. Denies f/c/n/v/d/c.
Past History
Past History
ED Past Medical History: CVA (X 2), HTN, Hypercholesterolemia, IDDM and Other (migraines); Negative CAD
ED Past Surgical History: Cardiac (Loop recorder and then it was removed, Closure of PFO), , Gynecological (Lap for precancerous cervical cells, ) and Orthopedic (Left great toe surgery, )
Social History
Tobacco: Smoker
Alcohol: Occasional
Drug: None
Personal:
Living: with family
Employment: Employed
Family History
Family History: Adopted
Review of Systems
Review of Systems
Allergies reviewed?: Yes
All Other Systems: ROS reviewed and negative except as documented in HPI and ROS
Constitutional: Denies fever
Respiratory: Reports cough and trouble breathing
Cardiac: Denies chest pain
ABD/GI: Denies abdominal pain, nausea or vomiting
Musculoskeletal: Reports no symptoms
Skin: Reports no symptoms
Neurological: Reports no symptoms
Phy Exam
Physical Exam
Physical Exam:
GENERAL: No acute distress. A&Ox3.
CONSTITUTIONAL: Afebrile.
EYES: clear, conjunctivae normal
ENMT: moist mucus membranes
RESPIRATORY: Regular respirations, nonlabored, lungs with expiratory wheezes throughout. Intermittent wheezing cough
CARDIOVASCULAR: Sinus tachycardia on the monitor with a rate 110. Regular rate and rhythm, no murmurs, no rubs.
GI: Soft, nontender, normal BS
MUSCULOSKELETAL: Moves with ease. Well perfused.
SKIN: Warm, dry, pink
PSYCH: Normal mood and affect. Well kept, interactive and appropriate
NEUROLOGIC: Awake, alert and oriented. No focal neurological deficits
Scores
Heart Failure Risk
Heart Failure Risk Score: Not Applicable
Course
Orders/Labs/Results
Orders:
Orders
07/24/24 16:40
Complete Blood Count/With Diff Urgent
Comprehensive Metabolic Panel Urgent
D-Dimer Urgent
Troponin I Urgent
07/24/24 16:46
Electrocardiogram (*1) Urgent
Reason for Study: Shortness of Breath
EKG- Treatment ONCE
07/24/24 18:30
Ipratropium/Albuterol Sulfate [Duoneb] 3 ml INH R NOW STA
07/24/24 18:32
CT Chest PE Study Urgent
Comment:
Reason For Exam: sob, elevated dimer and Troponin
07/24/24 19:58
Troponin I Urgent
07/24/24 21:11
Dexamethasone Sod Phosphate [Decadron] 10 mg IV NOW STA
07/24/24 21:42
Doxycycline [Vibramycin] 100 mg PO NOW STA
Abnormal Lab Results
07/24/24 07/24/24
16:40 19:58
WBC 13.8 H 10^3/uL
(4.8-10.8)
Hgb 11.3 L g/dL
(12.0-16.0)
Hct 36.3 L %
(37.0-47.0)
MCV 80.5 L fL
(81.0-99.0)
MCH 25.1 L pg
(27.0-31.0)
MCHC 31.1 L g/dL
(33.0-37.0)
RDW 15.2 H %
(11.5-14.5)
Abs Immat Gran (auto) 0.1 H 10^3/uL
(0-0.05)
Absolute Neuts (auto) 11.4 H 10^3/uL
(1.4-6.5)
Absolute Monos (auto) 0.7 H 10^3/uL
(0.1-0.6)
Immature Gran % 0.6 H %
(0-0.5)
Neutrophils % 82.2 H %
(42.2-75.2)
Lymphocytes % 10.9 L %
(20.5-51.1)
D-Dimer 0.89 H ug/mlFEU
(0.00-0.50)
Glucose 189 H mg/dl
(70-99)
AST 81 H U/L
(14-36)
ALT 67 H U/L
(0-35)
Alkaline Phosphatase 130 H U/L
(38-126)
Troponin I 0.060 H* ng/ml 0.058 H* ng/ml
07/24/24 16:40
07/24/24 16:40
Vital Signs
Initial and Last Documented VS:
Initial Vital Signs
Temp Pulse Resp BP Pulse Ox
97.4 F 115 16 178/104 97
07/24/24 16:42 07/24/24 16:42 07/24/24 16:42 07/24/24 16:42 07/24/24 16:42
Last Documented Vital Signs
Temp Pulse Resp BP Pulse Ox
97.4 F 116 26 183/96 94
07/24/24 16:42 07/24/24 21:45 07/24/24 21:00 07/24/24 21:30 07/24/24 21:45
Project Buyer consulted with Physician
Project Buyer consulted with physician?: Yes
Name of Physician Consulted: Michael
MDM/Problems Addressed
Differential Diagnosis Includes:
COPD exacerbation, PE, pneumonia
MDM/Problems Addressed:
48 yo female w h/o TIA, Migraines, Smoker, IDDM, HLD, COPD presents for wheezing, cough past 3 weeks, no relief with Albuterol and Advair inhalers. Denies f/c/n/v/d/c.
EKG: Sinus tachycardia 116
6:00 p.m.
CBC: WBC 13.8
CMP: No clinically significant abnormality
Troponin minimally elevated at 0.060
D-dimer mildly elevated at 0.89
9:[address] radiology report read: IMPRESSION: No evidence of pulmonary embolus.
Small bilateral pleural effusions, left larger than right. New.
Moderate left lower lobe atelectasis versus scarring. New
Mild mediastinal lymphadenopathy. Nonspecific. Stable subcarinal. Progressed prevascular.
Case discussed with Dr. Rodriguez, pt is stable for discharge.
Plan: Doxycycline, she has a nebulizer at home, She has a first time appointment with Pulmonology in 13 days.
Discussed quitting smoking. She declined when offered smoking cessation meds as she's 'tried them all before.'
Chronic conditions affecting care: COPD
*EKG
EKG Intrepretation Date: 07/24/24
Interpretation: abnormal
Heart Rate: 116
Rate: tachycardiac
Rhythm: sinus
Home: normal axis
Interval: normal interval
QRS Pattern: normal QRS
Ischemia: no ischemia
*Critical Care Note
Total Time (30-74mins, 75-104mins- exclusive of procedures): Not Applicable
ED Attending Note
-
Portions of this chart may have been created with voice recognition software.� Occasional wrong word or��sound alike� substitutions may have occurred due to the inherent limitations of voice recognition software.
Discharge Plan
Departure
Patient Disposition: Home (Routine Discharge)
Date of Disposition: 07/24/24
Time of Disposition: 21:44
Patient with high blood pressure during this ER visit?: Yes
Condition: Fair
Discharge Problem:
Acute bronchitis
Instructions: Asthma, Adult (DC), Acute Bronchitis, Adult (DC)
Prescriptions:
New
prednisone 20 mg tablet
40 mg PO DAILY Qty: 8 0RF
doxycycline hyclate 100 mg capsule
100 mg PO BID Qty: 19 0RF
No Action
rosuvastatin 10 MG tablet
10 mg PO DAILY
insulin glargine [Lantus Solostar U-100 Insulin] 300 UNITS/3 ML insulin pen
7 units SC HS
cyanocobalamin (vitamin B-12) 1,000 mcg Tablet, Sublingual
1,000 mcg SUBLINGUAL DAILY
diphenhydramine HCl [Benadryl] 25 ng Capsule
75 mg PO HS
naratriptan 2.5 mg tablet
2.5 mg PO BIDPRN PRN (Reason: migraine)
Nurtec ODT 75 mg tablet,disintegrating
75 mg PO Q48H
prochlorperazine maleate 10 mg Tablet
10 mg PO DAILYPRN PRN (Reason: nausea)
aspirin 81 mg Tablet,Delayed Release (Dr/Ec)
81 mg PO DAILY
insulin aspart U-100 100 unit/mL Solution
4 unit SC MEALS
melatonin 5 mg Tablet,Chewable
10 mg PO HS
amoxicillin-pot clavulanate 875-125 mg tablet
1 tab PO BID Qty: 10 0RF
prednisone 50 mg tablet
50 mg PO DAILY Qty: 5 0RF
albuterol sulfate 2.5 mg /3 mL (0.083 %) solution for nebulization
2.5 mg inhalation Q4H PRN (Reason: shortness of breath or wheezing) Qty: 180 0RF
Referrals:
UNKNOWN - PT DOES,NOT KNOW [Family Provider]
Referral Note: Keep your appointment with the Pulmonary doctor on 08/12
Activity Restrictions/Additional Instructions:
As we discussed, I sent a prescription to your pharmacy for prednisone to take 40 mg a day for 4 days. Started tomorrow as you were given a dose of steroid here today
I also sent a prescription to your pharmacy for the antibiotic doxycycline to take twice a day for 10 days.
Be sure to keep a close eye on your blood sugars throughout the day while you are on the prednisone as it can raise your blood sugar and adjust your insulin accordingly.
Keep your appointment with your pulmonary doctor on August 12.
Do not use your Advair more than twice a day, it is not to be used as a rescue inhaler
You may use your albuterol nebulizations or your albuterol inhaler, 2 puffs every 2-4 hours as needed for wheezing
Steroids raise your blood sugar by reducing the body's sensitivity to insulin and increasing glucose production in the liver.
Interventions
Interventions:
*Risk Screen - Suicide Last Done: 07/24/24 16:47
*General Assessment Last Done: 07/24/24 18:16
*Neglect/Abuse Screening Last Done: 07/24/24 16:47
*ED- Fall Risk Assessment Last Done: 07/24/24 18:16
*ED COVID-19 Vaccine History Last Done: 07/24/24 18:16
*Nursing Disposition Last Done: 07/24/24 22:17
ED- Cardiac Assessment Last Done: 07/24/24 18:20
ED- Pulmonary Assessment Last Done: 07/24/24 18:20
Discharge Date and Time
Discharge Date/Time: 07/24/24 22:18
Print Language: ICELANDIC
[2024-07-24] MEDS: DUONEB 3 ML INH (18:33)
[2024-07-24 20:00] VITALS: BP 193/93
[2024-07-24 20:30] VITALS: BP 209/98
[2024-07-24 20:40] LABS: Troponin I 0.058 ng/ml
[2024-07-24] MEDS: DECADRON 10 MG IV (21:22)
[2024-07-24 21:30] VITALS: BP 183/96
[2024-07-24] MEDS: VIBRAMYCIN 100 MG PO (21:59)
== END 2024-07-24 22:18 | disposition home or self-care (01) ==
LOC: EMR 16:39
PROVIDERS: Emergency Medicine; Registered Nurse; EMERGENCY PHYSICIAN Emergency Medicine
DX: J20.9 Acute bronchitis, unspecified (principal); I10 Essential (primary) hypertension; F17.200 Nicotine dependence, unspecified, uncomplicated; E11.9 Type 2 diabetes mellitus without complications; E78.00 Pure hypercholesterolemia, unspecified; J44.9 Chronic obstructive pulmonary disease, unspecified
CPT/HCPCS: 99285; 96374; 94640; 71275; 80053; 84484; 85025; 85379; 93005; Q9967

== ENCOUNTER 2024-08-14 21:54 | Inpatient (IN) | payer OTHER, SELFPAY ==
[2024-08-14] VITALS (7 sets, daily range): BP systolic 129–211; BP diastolic 82–121; BMI 26.7; BMI 25.9
[2024-08-14 16:24] LABS: % Basophils 0.4 % (0-2); % Eosinophils 0.5 % (0-6); % Immature Granulocytes 0.4 % (0-0.5); % Lymphocytes 9.2 % (20.5-51.1); % Monocytes 5.3 % (1.7-9.3); % Neutrophils 84.2 % (42.2-75.2); Absolute Basophils 0.1 10^3/uL (0-0.2); Absolute Eosinophils 0.1 10^3/uL (0-0.7); Absolute Immature Granulocytes 0.1 10^3/uL (0-0.05); Absolute Lymphocytes 1.1 10^3/uL (1.2-3.4); Absolute Monocytes 0.6 10^3/uL (0.1-0.6); Absolute Neutrophils 10.3 10^3/uL (1.4-6.5); Hematocrit 34.8 % (37.0-47.0); Hemoglobin 10.7 g/dL (12.0-16.0); Mean Corp Hgb Conc. 30.7 g/dL (33.0-37.0); Mean Corpuscular Hgb 23.9 pg (27.0-31.0); Mean Corpuscular Volume 77.7 fL (81.0-99.0); Mean Platelet Volume 9.7 fL (7.4-10.4); Nucleated Red Blood Cells % 0 %; Platelet Count 351 10^3/uL (130-400); Red Blood Cell Count 4.48 10^6/uL (4.20-5.40); Red Cell Dist. Width 15.3 % (11.5-14.5); White Blood Cell Count 12.2 10^3/uL (4.8-10.8)
[2024-08-14 16:41] LABS: ALT (SGPT) 43 U/L (0-35); AST (SGOT) 51 U/L (14-36); Albumin 3.6 g/dl (3.5-5.0); Alkaline Phosphatase 129 U/L (38-126); Blood Urea Nitrogen 20 mg/dl (7-17); Calcium 8.9 mg/dl (8.4-10.2); Carbon Dioxide 25 mmol/L (22-30); Chloride 105 mmol/L (98-107); Glucose 387 mg/dl (70-99); Potassium 4.4 mmol/L (3.5-5.1); Sodium 135 mmol/L (135-145); Total Bilirubin 0.4 mg/dl (0.2-1.3); Total Protein 6.3 g/dl (6.3-8.2); eGFR > 60.00
[2024-08-14 16:47] LABS: NT-proBNP 3250 pg/ml
--- NOTE | 2024-08-14 17:44 | ED.GENMED ---
History of Present Illness
General
Chief Complaint: Abdominal Pain
Source: patient
Exam Limitations: none
Time Seen by Provider: 08/14/24 17:43
Nursing documentation reviewed up to this point in time: agreed with
History of Present Illness
History of Present Illness:
48-year-old female history of migraines, CVA, smoker, COPD, HLD, loop recorder, IDDM, laparoscopic surgery 1996, states she's had bilateral leg, genital area and lower abdominal swelling past 2 days. Feels a little more short of breath than her
usual with her COPD. Denies chest pain. Sent here from PCP Dr. López's office.
Past History
Past History
ED Past Medical History: CVA (X 2), HTN, Hypercholesterolemia, IDDM and Other (migraines); Negative CAD
ED Past Surgical History: Cardiac (Loop recorder and then it was removed, Closure of PFO), , Gynecological (Lap for precancerous cervical cells, ) and Orthopedic (Left great toe surgery, )
Social History
Tobacco: Smoker
Alcohol: Occasional
Drug: None
Personal:
Living: with family
Employment: Employed
Family History
Family History: Adopted
Review of Systems
Review of Systems
Allergies reviewed?: Yes
All Other Systems: ROS reviewed and negative except as documented in HPI and ROS
Constitutional: Reports fatigue; Denies fever
Respiratory: Reports other (chronic cough and SOB, a little more SOB than usual past 2 days.)
Cardiac: Denies chest pain
ABD/GI: Reports other (lower abdominal bloating); Denies abdominal pain, nausea, vomiting or diarrhea
: Denies dysuria, frequency or difficulty voiding
Musculoskeletal: Reports edema (both LE's, genital area, lower abdomen feels bloated)
Skin: Reports no symptoms
Neurological: Reports no symptoms
Phy Exam
Physical Exam
Physical Exam:
GENERAL: No acute distress. A&Ox3.
CONSTITUTIONAL: Afebrile.
EYES: clear, conjunctivae normal
ENMT: moist mucus membranes, Pharynx nl
RESPIRATORY: Regular respirations, nonlabored, lungs with rhonchi throughout, coarse junky cough. No hypoxemia.
CARDIOVASCULAR: Regular rate and rhythm, tachycardia rate 115. No murmurs, no rubs.
GI: Soft, nontender, normal BS
MUSCULOSKELETAL: Moves with ease. Well perfused.
SKIN: Warm, dry, pink
PSYCH: Normal mood and affect. Well kept, interactive and appropriate
NEUROLOGIC: Awake, alert and oriented. No focal neurological deficits
Course
Orders/Labs/Results
Orders:
Orders
08/14/24 16:09
CR Chest - 2 Views Urgent
Comment:
Reason For Exam: respiratory distress
08/14/24 16:14
Complete Blood Count/With Diff Urgent
Comprehensive Metabolic Panel Urgent
NT-proBNP Urgent
Troponin I Urgent
Comment: ADD ON
08/14/24 17:19
Electrocardiogram (*1) Urgent
Reason for Study: Bradycardia / Tachycardia
08/14/24 17:20
EKG- Treatment ONCE
08/14/24 20:04
Add On- LAB Urgent
Tests Added?: Troponin
08/14/24 20:17
Furosemide [Lasix] 40 mg IV NOW STA
08/14/24 20:28
Labetalol HCl [Trandate] 10 mg IV NOW STA
08/14/24 20:36
Baclofen [Lioresal] 5 mg PO NOW STA
08/14/24 21:21
Admit/Transfer Patient As Directed
Co-Sign Provider:
Level of Care: Inpatient admission
Assign to:: Telemetry
Physician / Group: Jovani
Diagnosis: new onset CHF
Reason for Telemetry: Subacute Heart Failure
Date to Stop Telemetry: 08/16/24
Time to Stop Telemetry: 11:00
Reason for Hospitalization: subacute chf
Expected length of stay greater than two midnights?: Yes
ELOS- Estimated Length of Stay in days: 2
I certify the patient meets the requirements for IP care: Yes
PRN Pain Medication Management As Directed
May give lesser potent ordered pain med per pt: Yes
preference::
Protocol:: Medication orders for pain may be administered in a
manner that supports deferring to patient preference
when the pt is:
- Requesting an ordered lesser potent pain medication.
Least to most potent pain medications are defined
as: acetaminophen < NSAID < tramadol < opioids
(morphine, oxycodone, hydromorphone).
- Requesting a lesser dose of the same medication IF
ORDERED.
- Requesting a less intrusive route of administration
if both routes are prescribed by the provider (PO <
IV).
08/14/24 21:23
Code Status As Directed
Resuscitation Status: Full Code
08/14/24 22:00
Flush (0.9% Sodium Chloride) [Flush (Nss)] See Dose Instructions IV PER PROTOCOL
08/16/24 11:00
DC Protocol for Telemetry ONCE
Abnormal Lab Results
08/14/24
16:14
WBC 12.2 H 10^3/uL
(4.8-10.8)
Hgb 10.7 L g/dL
(12.0-16.0)
Hct 34.8 L %
(37.0-47.0)
MCV 77.7 L fL
(81.0-99.0)
MCH 23.9 L pg
(27.0-31.0)
MCHC 30.7 L g/dL
(33.0-37.0)
RDW 15.3 H %
(11.5-14.5)
Abs Immat Gran (auto) 0.1 H 10^3/uL
(0-0.05)
Absolute Neuts (auto) 10.3 H 10^3/uL
(1.4-6.5)
Absolute Lymphs (auto) 1.1 L 10^3/uL
(1.2-3.4)
Neutrophils % 84.2 H %
(42.2-75.2)
Lymphocytes % 9.2 L %
(20.5-51.1)
BUN 20 H mg/dl
(7-17)
Glucose 387 H mg/dl
(70-99)
AST 51 H U/L
(14-36)
ALT 43 H U/L
(0-35)
Alkaline Phosphatase 129 H U/L
(38-126)
Troponin I 0.067 H* ng/ml
08/14/24 16:14
08/14/24 16:14
Vital Signs
Initial and Last Documented VS:
Initial Vital Signs
Temp Pulse Resp BP Pulse Ox
98.2 F 116 16 159/97 96
08/14/24 16:04 08/14/24 16:04 08/14/24 16:04 08/14/24 16:04 08/14/24 16:04
Last Documented Vital Signs
Temp Pulse Resp BP Pulse Ox
98.2 F 99 23 129/82 98
08/14/24 16:04 08/14/24 22:00 08/14/24 22:00 08/14/24 22:00 08/14/24 22:04
MDM/Problems Addressed
Differential Diagnosis Includes:
CHF, exacerbation COPD, renal failure
MDM/Problems Addressed:
48-year-old female history of migraines, CVA, smoker, COPD, HLD, loop recorder, IDDM, laparoscopic surgery 1996, states she's had bilateral leg, genital area and lower abdominal swelling past 2 days. Feels a little more short of breath than her
usual with her COPD. Denies chest pain. Sent here from PCP Dr. López's office.
Afebrile, NAD
EKG: Sinus tachycardia
CBC: No clinically significant abnormality, consistent with her chronic mild leukocytosis from prednisone
CMP: No clinically significant abnormality, consistent with her chronic mild elevation of liver enzymes.
BNP elevated at 3250
8:30 p.m
CXR showing increased interstitial markings, small left pleural effusion consistent with CHF
BP remains high 183/103. Pt not on antihypertensive. Labetalol ordered
She will give herself insulin as she usually does for her blood glucose of 387
Plan: Admit: New CHF, Hypertensive Urgency
Troponin pending
Hospitalist notified of admission.
Chronic conditions affecting care: DM and COPD
*Pulse Oximetry
SaO2: 96
Oxygen Mode of Delivery: Room air
Patient hypoxic: no
*EKG
EKG Intrepretation Date: 08/14/24
Interpretation: abnormal
Heart Rate: 115
Rate: tachycardiac
Rhythm: sinus
[place]: normal axis
Interval: normal interval
QRS Pattern: normal QRS
Ischemia: no ischemia
*Critical Care Note
Total Time (30-74mins, 75-104mins- exclusive of procedures): Not Applicable
ED Attending Note
-
Portions of this chart may have been created with voice recognition software.� Occasional wrong word or��sound alike� substitutions may have occurred due to the inherent limitations of voice recognition software.
Discharge Plan
Departure
Patient Disposition: Admit
Date of Disposition: 08/14/24
Time of Disposition: 20:18
Admit to: Telemetry
Presentation/result/management discussed w/ accepting MD/DO: Hospitalist
Condition: Fair
Discharge Problem:
CHF (congestive heart failure), Hypertensive urgency
Interventions
Interventions:
*Risk Screen - Suicide Last Done: 08/14/24 16:04
*General Assessment Last Done: 08/14/24 17:18
*Neglect/Abuse Screening Last Done: 08/14/24 16:04
*ED- Fall Risk Assessment Last Done: 08/14/24 17:18
*ED COVID-19 Vaccine History Last Done: 08/14/24 17:18
*Nursing Disposition Last Done: 08/14/24 21:41
TQ-Pdmlig-Jzcodalavr Assessment Last Done: 08/14/24 17:32
[2024-08-14] MEDS: LASIX 40 MG IV (20:32)
[2024-08-14] MEDS: TRANDATE 10 MG IV (20:32)
[2024-08-14 20:53] LABS: Troponin I 0.067 ng/ml
--- NOTE | 2024-08-14 20:54 | HPS.HSE ---
Family Physician
-
Family Physician: Kurtis López, DO
Chief Complaint
-
Abdominal pain
History of Present Illness
This is a 48-year-old female with past medical history of cryptogenic CVA status post PFO closure, smoker and COPD, HLD, IDDM, presenting with with abdominal discomfort and swelling as well as shortness of breath over the last 2 days.
Patient reports states bilateral leg, genital area and lower abdominal swelling past 2 days. Feels a little more short of breath than her usual with her COPD. Denies chest pain. Sent here from PCP Dr. López's office.
She denies having any chest pain unless with coughing. She denies orthopnea or PND. She reports that she has gained about 6 pounds since her last measurement: Unclear of the timing. Patient denies any recent respiratory illness. She states that
she started Chantix and Trelegy recently.
Patient denies any prior cardiac history including any history of CAD, CHF, PCI, valvular disease atrial fibrillation or other arrhythmia. She does have a prior history of PFO that was closed about 5 years ago.
Intermittent department the patient was afebrile, he was satting 96% on room air. Blood pressure was 180/100 with a pulse rate of 118. Temperature was 98.2. ECG shows sinus tachycardia at a rate of [address]-T wave changes.
Troponin is 0.06. BNP is elevated at 3200.
Chest x-ray shows bilateral pleural effusions.
She has a white count of 12.2 hemoglobin and blood counts were normal. Electrolytes were normal. BUN/creatinine were normal. Glucose was elevated at 387.
Medical History
Past Medical History
Past Medical History: Reports Other
Additional Past Medical History:
Cryptogenic CVA
Insulin-Dependent Diabetes Mellitus
Hyperlipidemia
Migraine Headache
Insomnia
Past Surgical History: Reports Other
Additional Past Surgical History:
PFO Closure
Cervical LEEP
Left Great Toe Surgery
Social History
Tobacco: Smoker (5 cigarettes per day)
Alcohol: Occasional
Family History
Family History: Not pertinent
Allergies / Home Medications
Allergies reflects when Allergies were last updated in [facility].
Home Medications with original date entered in [facility]
Allergy/Medication List:
Allergies
Allergy/AdvReac Type Severity Reaction Status Date / Time
No Known Allergies Allergy Verified 08/05/23 17:00
Home Medications
insulin glargine 100 unit/mL (3 mL) subcutaneous pen (Lantus Solostar U-100 Insulin) 7 units SC HS 08/19/21
rosuvastatin 10 mg tablet 10 mg PO DAILY 08/19/21
cyanocobalamin (vitamin B-12) 1,000 mcg sublingual tablet 1,000 mcg sublingual DAILY 11/20/21
diphenhydramine HCl 25 mg capsule (Benadryl) 75 mg PO HS 11/20/21
naratriptan 2.5 mg tablet 2.5 mg PO BIDPRN PRN migraine 04/19/23
rimegepant 75 mg disintegrating tablet (Nurtec ODT) 75 mg PO Q48H 04/19/23
aspirin 81 mg tablet,delayed release 81 mg PO DAILY 11/19/23
insulin aspart U-100 100 unit/mL subcutaneous solution 4 unit SC MEALS 11/19/23
melatonin 5 mg chewable tablet 10 mg PO HS 11/19/23
prochlorperazine maleate 10 mg tablet 10 mg PO DAILYPRN PRN nausea 11/19/23
Review of Systems
-
Constitutional: Reports Weight Gain
EENT: Reports No Symptoms
Respiratory: Reports Cough
Cardiac: Reports No Symptoms
Abdomen/GI: Reports Abdominal Pain
: Reports No Symptoms
Musculoskeletal: Reports Edema
Skin: Reports No Symptoms
Neurological: Reports No Symptoms
Endocrine: Reports No Symptoms
Hematologic/Lymphatic: Reports No Symptoms
Psych: Reports No Symptoms
Physical Exam
Vital Signs
Vital Signs
Temp Pulse Resp BP Pulse Ox
98.2 F 118 26 183/103 96
08/14/24 16:04 08/14/24 20:06 08/14/24 20:06 08/14/24 20:06 08/14/24 17:46
Physical Exam
General: Conversant and Other (Appears acutely ill)
HEENT: Anicteric and Other (Mucous membranes are dry)
Respiratory: Clear and Non Labored Respirations
Cardiac: S1/S2, Regular Rhythm and Peripheral Edema
GI: Soft and Tender (Mild throughout without rebound or guarding)
Musculoskeletal: No Clubbing, No Cyanosis, Edema, Left Lower Extremity, Edema, Right Lower Extremity, No Edema and Other (Anasarca)
Skin: Warm and Dry
Neuro: Awake, Alert, Oriented and Nonfocal/grossly intact
Psych: Calm
Laboratory Results
-
08/14/24 16:14
08/14/24 16:14
Laboratory Results
Total Bilirubin 0.4 mg/dl (0.2-1.3) 08/14/24 16:14
AST 51 U/L (14-36) H 08/14/24 16:14
ALT 43 U/L (0-35) H 08/14/24 16:14
Alkaline Phosphatase 129 U/L (38-126) H 08/14/24 16:14
Troponin I 0.067 ng/ml H* 08/14/24 16:14
Data Reviewed
-
Diagnostic Radiology: Image Personally Visualized and interpreted
Medical Tests (Nuc Med, Echo, EKG etc): Image Personally Visualized and interpreted
Lab Data: Labs Reviewed by me
Old Records: Reviewed
Impression/Plan
-
IMPRESSION:
48-year-old female with past medical history of insulin-dependent diabetes on insulin pump, tobacco use, hyperlipidemia, cryptogenic CVA status post PFO closure, presenting to the emergency department with elevated blood pressure and anasarca. She
has bilateral small pleural effusions as well. BNP is elevated at 3300. Troponin is 0.06. ECG is sinus tach but nonischemic. Labs are otherwise stable. She is on room air.
PLAN:
Anasarca -suspect secondary to new onset congestive heart failure with elevated BNP and hx of uncontrolled blood pressure with slight increased troponin. IDDM for many years likely with underlying renal disease but preserved GFR. No known liver
disease, mild LFT change, possible congestion. Cannot rule out pericarditis or myocarditis given rapid onset, acute bronchitis 3 wks ago.
-Admit to telemetry
-Initiate diuretics with Lasix 40 mg twice daily for now
-Echo in a.m.
-Cardiovascular panel, TSH, A1c
-Initiate low-dose ARB
-Check UA for sediments and protein
-Daily weights and ins and outs
-Fluid and salt restriction
-Cardiology consult
COPD -stable
-Continue with Trelegy
-As needed nebs
Insulin-dependent diabetes -patient on home insulin pump
-Continue home pump regimen
-Sliding scale Q ACHS
DVT prophylaxis�Lovenox subcu
CODE STATUS�full code
[2024-08-15] MEDS: MELATONIN 10 MG PO ×2 (00:29→22:08)
[2024-08-15] MEDS: BENADRYL 75 MG PO ×2 (00:29→22:08)
[2024-08-15 06:00] VITALS: BMI 25.9
[2024-08-15 06:59] LABS: Hematocrit 36.3 % (37.0-47.0); Mean Corp Hgb Conc. 30.3 g/dL (33.0-37.0); Mean Corpuscular Hgb 23.7 pg (27.0-31.0); Mean Corpuscular Volume 78.2 fL (81.0-99.0); Mean Platelet Volume 9.5 fL (7.4-10.4); Platelet Count 404 10^3/uL (130-400); Red Blood Cell Count 4.64 10^6/uL (4.20-5.40); Red Cell Dist. Width 15.4 % (11.5-14.5); White Blood Cell Count 9.3 10^3/uL (4.8-10.8)
[2024-08-15 07:15] VITALS: BP 164/64
[2024-08-15 07:24] LABS: ALT (SGPT) 46 U/L (0-35); AST (SGOT) 51 U/L (14-36); Albumin 3.7 g/dl (3.5-5.0); Alkaline Phosphatase 121 U/L (38-126); Direct Bilirubin 0.2 mg/dl (0.0-0.4); HDL Cholesterol 62 mg/dl; LDL Cholesterol, Calculated 21 mg/dl; Magnesium 1.9 mg/dl (1.6-2.3); Phosphorus 4.8 mg/dl (2.5-4.5); Total Bilirubin 0.4 mg/dl (0.2-1.3); Total Cholesterol 98 mg/dl (50-199); Total Protein 6.5 g/dl (6.3-8.2); Triglyceride 76 mg/dl (10-149); Very Low Density Lipoprotein 15 mg/dl (0-30)
[2024-08-15 07:43] LABS: Troponin I 0.079 ng/ml
[2024-08-15] MEDS: SYMBICORT 160/4.5 MCG INHALER 2 PUFF INH (07:51)
[2024-08-15] MEDS: LASIX 40 MG IV ×2 (08:11→16:43)
[2024-08-15] MEDS: COZAAR 25 MG PO (08:13)
[2024-08-15] MEDS: CRESTOR 10 MG PO (08:13)
[2024-08-15] MEDS: CHANTIX 0.5 MG PO (08:13)
[2024-08-15] MEDS: ASPIR LOW (ENTERIC COATED) 81 MG PO (08:13)
[2024-08-15] MEDS: VITAMIN B-12 1000 MCG PO (08:13)
[2024-08-15 08:16] LABS: Glucose - Point of Care 131 mg/dl (70-99)
[2024-08-15] MEDS: PT'S OWN INSULIN PUMP - NovoLOG SC ×2 (08:30→22:51)
[2024-08-15] MEDS: VENTOLIN NEBULES 2.5 MG INH ×2 (08:54→22:13)
[2024-08-15 10:00] LABS: Urine Albumin 2+ (Neg - Trace); Urine Bilirubin Negative (Negative); Urine Character Clear (Clear); Urine Color Yellow; Urine Glucose Negative (Negative); Urine Ketone Negative (Negative); Urine Leukocyte Negative (Negative); Urine Nitrite Negative (Negative); Urine Occult Blood 1+ (Negative); Urine Urobilinogen Negative (Neg - 1+); Urine pH 6.5 (5.0-9.0)
[2024-08-15 10:20] LABS: Urine Squamous Cell 16-20 /LPF (Few)
[2024-08-15 10:21] LABS: Urine Bacteria Few (Negative)
--- NOTE | 2024-08-15 10:28 | CON.CAR ---
Addendum entered and electronically signed by Kartik Nazario MD 08/15/24 13:02:
I saw and examined the patient.
The STUDY COORDINATOR's note was reviewed and I agree with the note.
Comment: 48 y/o female with hypertension, dyslipidemia, cryptogenic stroke, PFO s/p closure, DMII on insulin, COPD, and smoker. She is here for evaluation of SOB.
She has worsening abdominal and feet swelling.
- IV lasix bid
- echo
- trend trop likely non-ischemic myocardial injury
- sglt2i pricing
Original Note:
Consultation
Consultation Request
Date/Time Consultation Requested: 08/14/242305
Date/Time Consultation Performed: 08/15/24 1015
Requesting Provider: Dr. Hahn
Performing Provider: Naina ARELLANO for Dr. Nazario
Reason for Consultation: CHF
Medical History
-
Chief Complaint: SOB
History of Present Illness:
48 y/o female with hypertension, dyslipidemia, cryptogenic stroke, PFO s/p closure, DMII on insulin, COPD, and smoker. She is here for evaluation of SOB. This has been present for the last month. Worse with exertion. She has a cough. She was treated
for bronchitis as OP and was briefly on steroids, but stopped after 3 days due to elevated blood sugar. She has also noted 5 lb weight gain and edema from abdomen down. BP severely elevated on arrival. We are consulted for CHF. She is being
diuresed. She is in no distress at the time of my assessment.
Past Medical History
Past Medical History: COPD, CVA, HTN, Hypercholesterolemia, NIDDM (DM2 on insulin) and Other (as above)
Social History
Tobacco: Smoker
Family History
Family History: Reviewed & Not Pertinent
Allergies / Home Medications
Allergy/AdvReac Type Severity Reaction Status Date / Time
No Known Allergies Allergy Verified 07/13/24 16:52
�Medication �Instructions �Recorded �Confirmed �Type
rosuvastatin 10 mg tablet 10 mg PO DAILY High Cholesterol 08/19/21 08/14/24 History
cyanocobalamin (vitamin B-12) 1,000 mcg sublingual DAILY 11/20/21 08/14/24 History
1,000 mcg sublingual tablet Supplement
diphenhydramine HCl 25 mg capsule 75 mg PO HS PRN Sleep 11/20/21 08/14/24 History
(Benadryl)
naratriptan 2.5 mg tablet 2.5 mg PO BIDPRN PRN migraine 04/19/23 08/14/24 History
rimegepant 75 mg disintegrating 75 mg PO Q48H 04/19/23 08/14/24 History
tablet (Nurtec ODT)
aspirin 81 mg tablet,delayed 81 mg PO DAILY Blood Clot 11/19/23 08/14/24 History
release Prevention/Tx
insulin aspart U-100 100 unit/mL 0 unit continuous subcutaneous 11/19/23 08/14/24 History
subcutaneous solution infusion .INSULIN PUMP Diabetes
Women's One Daily 1 tab PO DAILY 08/14/24 08/14/24 History
acetaminophen 500 mg tablet 1,500 mg PO BID 08/14/24 08/14/24 History
(Tylenol Extra Strength)
albuterol sulfate 2.5 mg/3 mL 2.5 mg inhalation R Q4HPRN PRN 08/14/24 08/14/24 History
(0.083 %) solution for nebulization shortness of breath or wheezing
albuterol sulfate 90 mcg/actuation 2 puff inhalation R Q4HPRN PRN sob 08/14/24 08/14/24 History
aerosol inhaler
wehkyqr-rvruvwkgrclbk-tsymguns 250 1 tab PO BID 08/14/24 08/14/24 History
mg-250 mg-65 mg tablet (Headache
Relief (ZHZ-etufzrpnnghk-swljjacn))
fluticasone fur. 200 mcg-umeclid 2 inh inhalation R DAILY 08/14/24 08/14/24 History
62.5 mcg-vilant 25 mcg
inhalat.powder (Trelegy Ellipta)
melatonin 10 mg chewable tablet 20 mg PO HS 08/14/24 08/14/24 History
polyethylene glycol 3350 17 gram 17 g PO Q48H 08/14/24 08/14/24 History
oral powder packet (Miralax)
varenicline tartrate 0.5 mg tablet 0.5 mg PO DAILY 08/14/24 08/14/24 History
Review of Systems
-
History Source: Patient
All other systems: Negative unless noted
Constitutional: Weight Gain
Respiratory: Cough and Trouble Breathing
Musculoskeletal: Edema
Physical Exam
Vital Signs
Temp Pulse Resp BP Pulse Ox
97.4 F 98 18 143/85 100
08/15/24 07:15 08/15/24 08:58 08/15/24 08:58 08/15/24 08:11 08/15/24 08:58
Lab Results
08/15/24 06:52
08/14/24 16:14
Troponin I 0.079 ng/ml H* 08/15/24 06:52
Vnx-O-Mpgmqpknanh Pept 3250 pg/ml 08/14/24 16:14
Physical Exam
General: Well Developed, Well Nourished and No Apparent Distress
HEENT: Normocephalic and Anicteric
Respiratory: Other (coarse lung sounds to bases)
Cardiac: Regular Rhythm
Musculoskeletal: Edema (mild BLE edema)
Skin: Warm
Neuro: AO x 3
Psych: Calm
Impression / Plan
-
SOB:
-likely multifactorial in this patient with COPD/current smoker, recent suspected bronchitis, and now with concern for acute HF (type unknown) based on CXR, BNP, weight gain/edema. Severe HTN may have contributed.
-assess response to IV diuresis, which requires intensive monitoring. Update echo. Also getting nebs.
HTN:
-severely elevated on arrival
-improved s/p labetalol, losartan, Lasix
-monitor and adjust as needed
Abnormal troponin:
-suspect acute, non ischemic myocardial injury in setting of severe HTN, possible CHF
-trend to peak
-check echo
-no CP (except with cough)
DM2 on insulin:
-monitor sugars
Smoker:
-recommend total cessation
hx CVA:
-continue ASA, statin
-hx PFO closure
Data:
Echo 04/25/23Normal left ventricular size with mild concentric remodeling and normal left ventricular systolic function. Left ventricular ejection fraction is 63% by Strickland's method. Well seated, normally functioning #25 Amplatzer PFO Occluder
device seen without evidence of shunting by color flow and negative bubble study.
Data Reviewed
-
EKG: Tracing Personally Visualized and interpreted (ST 113 BPM)
Radiology: Report Reviewed by me (CXR: MILD to MODERATE ACUTE INTERSTITIAL and ALVEOLAR CARDIOGENIC PULMONARY EDEMA. 2. Small left and minimal right pleural effusions. 3. Mild cardiomegaly. )
Medical Tests (Nuc Med, Echo etc): Report Reviewed by me
Labs: Labs Reviewed by me
[2024-08-15 10:58] LABS: Protein/creatinine Ratio 2.2; Urine Protein 59 mg/dl
[2024-08-15 11:19] VITALS: BP 144/78
[2024-08-15 11:45] LABS: Glucose - Point of Care 137 mg/dl (70-99)
[2024-08-15] MEDS: PT'S OWN INSULIN PUMP - NovoLOG 5.95 UNIT SC (13:28)
--- NOTE | 2024-08-15 13:29 | W.PN.HOSP.TC ---
Today's Communication/Plan
-
Assessment / Plan
Assessment / Plan
General: No Apparent Distress, Comfortable and Conversant
HEENT: NormoCephalic, Moist mucous membranes, Atraumatic
Respiratory: Bilateral rales, Non Labored Respirations
Cardiac: S1/S2 and Regular Rhythm; No Rub or Gallop
GI: Soft, Non Tender, Non Distended and Normal Bowel Sounds
Musculoskeletal: 3+ pitting edema to just below the knee, abdomen S appearing abdomen, no deformity
Skin: Warm and dry
: NO Robertson
Neuro: Awake, Alert, Nonfocal/grossly intact
Psych: Calm and Intact Judgment/Insight
Ms. Robbins is a 48-year-old female with a medical history of cryptogenic CVA (status post PFO closure), recent COPD diagnosis, current smoker attempting to quit, and IDDM (with insulin pump) who presented with lower extremity and abdominal swelling
and discomfort with associated shortness of breath for approximately 2 days prior to arrival. She has also been experiencing a nonproductive cough. She reports abrupt weight gain as well. She was recently diagnosed with COPD after outpatient PFTs
and started Trelegy. She is also attempting to quit smoking and has been started on Chantix. She has been afebrile and moderately hypertensive. She had elevated BNP and chest x-ray showed pulmonary edema. She has been started on diuresis with IV
Lasix and admitted for further evaluation and management of suspected new onset heart failure.
Heart failure:
- Suspected, with new onset, unknown type
- Troponins elevated but stable, do not suspect ischemic etiology, likely due to uncontrolled hypertension
- Echocardiogram pending
- Continue aggressive diuresis with Lasix 40 mg IV twice daily, monitor I's and O's and daily weights
- Afterload reduction with losartan 25 mg daily
- Appreciate cardiology guidance
- SGLT2 inhibitor pricing
Hypertensive urgency:
- Likely has had undiagnosed chronic hypertension, not on antihypertensive regimen at home
- Started on losartan 25 mg p.o. daily
- Additional IV enalaprilat as needed for SBP greater than 180
IDDM:
- Patient has insulin pump in place
- Continue Accu-Cheks
COPD:
- Recent diagnosis, no evidence of acute exacerbation
- Started on Trelegy at home, will continue inpatient able to bring from home, otherwise will continue Symbicort
DVT prophylaxis: Lovenox
CODE STATUS: Full code
Total time spent on today's encounter was 42 minutes
Anticipated Discharge: > 48 hours
Subjective/Interval History
-
Date of Service: August 15, 2024
Patient was seen and examined at bedside this morning. Has been diuresing adequately. Echocardiogram pending for suspected new onset heart failure.
Objective Data
-
Labs:
Laboratory Results
08/15/24
06:52
WBC 9.3
Hgb 11.0 L
Hct 36.3 L
Plt Count 404 H
Total Bilirubin 0.4
AST 51 H
ALT 46 H
Alkaline Phosphatase 121
Vital Signs:
Vital Signs
Temp Pulse Resp BP Pulse Ox
98.5 F 103 20 144/78 92
08/15/24 11:19 08/15/24 11:19 08/15/24 11:19 08/15/24 11:19 08/15/24 11:19
Review of Systems
-
History Source: Patient
All other systems: Reviewed and negative
Genitourinary: Reports Frequency
Musculoskeletal: Reports Edema (Lower extremities and abdomen)
Physical Exam
-
General: No Apparent Distress
[2024-08-15 15:29] VITALS: BP 137/76
[2024-08-15] MEDS: NON-FORMULARY ITEM 1 UNIT INH (15:30)
[2024-08-15 16:28] LABS: Glucose - Point of Care 338 mg/dl (70-99)
[2024-08-15] MEDS: LOVENOX 40 MG SC (16:43)
[2024-08-15] MEDS: PT'S OWN INSULIN PUMP - NovoLOG 12.75 UNIT SC (18:15)
[2024-08-15 19:50] VITALS: BP 148/85
[2024-08-15 21:20] LABS: Glucose - Point of Care 305 mg/dl (70-99)
[2024-08-15] MEDS: ROBITUSSIN 100 MG PO (22:07)
[2024-08-15 23:16] VITALS: BP 156/89
[2024-08-16 06:00] VITALS: BMI 25.2
[2024-08-16 07:28] VITALS: BP 163/100
[2024-08-16] MEDS: CRESTOR 10 MG PO (07:51)
[2024-08-16] MEDS: ASPIR LOW (ENTERIC COATED) 81 MG PO (07:51)
[2024-08-16] MEDS: VITAMIN B-12 1000 MCG PO (07:51)
[2024-08-16] MEDS: COZAAR 25 MG PO (07:51)
[2024-08-16] MEDS: CHANTIX 0.5 MG PO (07:51)
[2024-08-16 07:54] LABS: Glucose - Point of Care 93 mg/dl (70-99)
[2024-08-16] MEDS: NON-FORMULARY ITEM 1 UNIT INH (07:54)
[2024-08-16 09:43] LABS: Blood Urea Nitrogen 22 mg/dl (7-17); Calcium 8.9 mg/dl (8.4-10.2); Carbon Dioxide 28 mmol/L (22-30); Chloride 105 mmol/L (98-107); Estimated Creatinine Clearance 64 ml/min; Glucose 116 mg/dl (70-99); Sodium 139 mmol/L (135-145); eGFR > 60.00
--- NOTE | 2024-08-16 09:49 | CM ---
Addendum entered by Liz Day RN 08/16/24 14:49:
Per [facility] Pharmacist- both Farxiga & Jardiance are covered 100%/no copay, however they do not have Farxiga in stock so script would need to be sent and they can order it, would be available Sat-.
Patient ok with med cost however wants to talk to doctor again as she is not sure she wants to do Farxiga again---> message sent to Naina Lauren.
Original Note:
Patient with Dx HF, Hypertensive urgency. Room air. Receiving IV Lasix. Per nurse; assist of 1.
Met with patient and yesterday;
the patient resides with her and son in a 3 story town house with 3 steps at entrance.
The patient was independent in ADLs and ambulation.
DME - nebulizer
No prior VN
PCP - Kurtis López
Pharmacy -[facility] [address]
No CM d/c needs identified.
Plan home.
[2024-08-16 10:01] LABS: Troponin I 0.109 ng/ml
[2024-08-16] MEDS: LASIX 40 MG IV ×2 (10:11→15:45)
[2024-08-16] MEDS: PT'S OWN INSULIN PUMP - NovoLOG 6.9 UNIT SC (10:13)
--- NOTE | 2024-08-16 10:42 | W.PN.HOSP.TC ---
Today's Communication/Plan
-
Assessment / Plan
Assessment / Plan
General: No Apparent Distress, Comfortable and Conversant
HEENT: NormoCephalic, Moist mucous membranes, Atraumatic
Respiratory: Bilateral rales, Non Labored Respirations
Cardiac: S1/S2 and Regular Rhythm; No Rub or Gallop
GI: Soft, Non Tender, edematous abdominal wall, normal Bowel Sounds
Musculoskeletal: 3+ pitting edema to just below the knee, no deformity
Skin: Warm and dry
: NO Robertson
Neuro: Awake, Alert, Nonfocal/grossly intact
Psych: Calm and Intact Judgment/Insight
Ms. Robbins is a 48-year-old female with a medical history of cryptogenic CVA (status post PFO closure), recent COPD diagnosis, current smoker attempting to quit, and IDDM (with insulin pump) who presented with lower extremity and abdominal swelling
and discomfort with associated shortness of breath for approximately 2 days prior to arrival. She has also been experiencing a nonproductive cough. She reports abrupt weight gain as well. She was recently diagnosed with COPD after outpatient PFTs
and started Trelegy. She is also attempting to quit smoking and has been started on Chantix. She has been afebrile and moderately hypertensive. She had elevated BNP and chest x-ray showed pulmonary edema. She has been started on diuresis with IV
Lasix and admitted for further evaluation and management of suspected new onset heart failure.
Heart failure:
- Suspected, with new onset, unknown type, echocardiogram pending
- Troponins elevated but stable, do not suspect ischemic etiology, likely due to uncontrolled hypertension
- Diuresing appropriately, weight is down approximately 3.5 kg so far this admission
- Continue aggressive diuresis with Lasix 40 mg IV twice daily, monitor I's and O's and daily weights
- Afterload reduction with losartan 25 mg daily
- Appreciate cardiology guidance
- SGLT2 inhibitor pricing
Hypertensive urgency:
- Likely has had undiagnosed chronic hypertension, not on antihypertensive regimen at home
- Started on losartan 25 mg p.o. daily, monitor BP and adjust regimen as needed
- Additional IV enalaprilat as needed for SBP greater than 180
IDDM:
- Patient has insulin pump in place
- Continue Accu-Cheks
COPD:
- Recent diagnosis, no evidence of acute exacerbation
- Started on Trelegy at home, will continue Trelegy inpatient which she brought from home
DVT prophylaxis: Lovenox
CODE STATUS: Full code
Total time spent on today's encounter was 42 minutes
Anticipated Discharge: 24 - 48 hours
Subjective/Interval History
-
Date of Service: August 16, 2024
Patient was seen and examined at bedside this morning. Diuresing well. She is anxious to leave however is not appropriate for discharge today. Awaiting echocardiogram.
Objective Data
-
Labs:
Laboratory Results
08/16/24
09:12
Sodium 139
Potassium 4.0
Chloride 105
Carbon Dioxide 28
BUN 22 H
Creatinine 0.8
Glucose 116 H
Calcium 8.9
Vital Signs:
Vital Signs
Temp Pulse Resp BP Pulse Ox
97.5 F 91 18 163/100 98
08/16/24 07:28 08/16/24 07:56 08/16/24 07:56 08/16/24 07:28 08/16/24 07:56
I&O
08/15/24 08/16/24 08/17/24
06:59 06:59 06:59
Intake Total 1580 / 1580
Output Total 1450 / 1450 300 / 300
Balance 130 / 130 -300 / -300
Review of Systems
-
History Source: Patient
All other systems: Reviewed and negative
Musculoskeletal: Reports Edema
Physical Exam
-
General: No Apparent Distress
[2024-08-16 11:07] VITALS: BP 141/76
[2024-08-16 12:24] LABS: Glucose - Point of Care 154 mg/dl (70-99)
[2024-08-16] MEDS: PT'S OWN INSULIN PUMP - NovoLOG 5.9 UNIT SC (12:52)
--- NOTE | 2024-08-16 13:11 | W.PN.CD ---
Today's Communication / Plan
-
Diuresis
Echo tomorrow
Likely d/c tomorrow
Impression / Plan
-
HF unknown EF:
-likely multifactorial in this patient with COPD/current smoker, recent suspected bronchitis, and now with concern for acute HF (type unknown) based on CXR, BNP, weight gain/edema. Severe HTN may have contributed.
-Cont IV diuresis
- increase losartan
- echo tomorrow
HTN:
-severely elevated on arrival
-improved s/p labetalol, losartan, Lasix
-increased losartan
Abnormal troponin:
-suspect acute, non ischemic myocardial injury in setting of severe HTN, possible CHF
-trend to peak
-check echo
-no CP (except with cough)
DM2 on insulin:
-monitor sugars
Smoker:
-recommend total cessation
hx CVA:
-continue ASA, statin
-hx PFO closure
Data:
Echo 04/25/23Normal left ventricular size with mild concentric remodeling and normal left ventricular systolic function. Left ventricular ejection fraction is 63% by Strickland's method. Well seated, normally functioning #25 Amplatzer PFO Occluder
device seen without evidence of shunting by color flow and negative bubble study.
Physical Exam
Vital Signs/Labs
Vital Signs
Temp Pulse Resp BP Pulse Ox
98.4 F 101 16 141/76 94
08/16/24 11:07 08/16/24 11:07 08/16/24 11:07 08/16/24 11:07 08/16/24 11:07
08/15/24 08/16/24 08/17/24
06:59 06:59 06:59
Actual Weight 128 lb 1 oz 124 lb 8 oz
08/15/24 06:52
08/16/24 09:12
Magnesium 1.9 mg/dl (1.6-2.3) 08/15/24 06:52
Triglycerides 76 mg/dl (10-149) 08/15/24 06:52
LDL Cholesterol, Calc 21 mg/dl 08/15/24 06:52
VLDL Cholesterol, Calc 15 mg/dl (0-30) 08/15/24 06:52
HDL Cholesterol 62 mg/dl 08/15/24 06:52
08/14/24
16:14
Dvb-S-Aaiqvvxcour Pept 3250
LAB Results
08/14/24 08/15/24 08/16/24
16:14 06:52 09:07
Troponin I 0.067 H* 0.079 H* 0.109 H*
Physical Exam
Constitutional: No acute distress and Comfortable
Cardiovascular: Rhythm & rate is regular and Pedal edema present (b/l feet )
Respiratory: Respiratory effort normal and Crackles Present
GI: Soft
Neuro/Psych: AO x 3
Data Reviewed
-
Date of Service: August 16, 2024
EKG: Tracing Personally Visualized and interpreted (sr)
Labs: Labs Reviewed by me
[2024-08-16] MEDS: LOVENOX 40 MG SC (15:45)
[2024-08-16 15:46] VITALS: BP 140/81
[2024-08-16 16:38] LABS: Glucose - Point of Care 199 mg/dl (70-99)
[2024-08-16] MEDS: PT'S OWN INSULIN PUMP - NovoLOG 7.95 UNIT SC (17:45)
[2024-08-16 18:06] LABS: Troponin I 0.248 ng/ml
[2024-08-16 19:43] VITALS: BP 153/80
[2024-08-16] MEDS: VENTOLIN NEBULES 2.5 MG INH (20:56)
[2024-08-16 21:10] LABS: Glucose - Point of Care 210 mg/dl (70-99)
[2024-08-16 21:34] LABS: Glucose - Point of Care 180 mg/dl (70-99)
[2024-08-16] MEDS: BENADRYL 75 MG PO (22:25)
[2024-08-16] MEDS: MELATONIN 10 MG PO (22:25)
[2024-08-16] MEDS: ROBITUSSIN 100 MG PO (22:26)
[2024-08-16] MEDS: PT'S OWN INSULIN PUMP - NovoLOG SC (22:29)
[2024-08-16 23:28] VITALS: BP 162/94
[2024-08-17] VITALS (13 sets, daily range): BP systolic 83–190; BP diastolic 48–107; BMI 24.5
[2024-08-17 01:48] LABS: Troponin I 0.219 ng/ml
[2024-08-17] MEDS: NON-FORMULARY ITEM 1 UNIT INH (07:17)
[2024-08-17] MEDS: CHANTIX 0.5 MG PO (07:32)
[2024-08-17] MEDS: VITAMIN B-12 1000 MCG PO (07:32)
[2024-08-17] MEDS: CRESTOR 10 MG PO (07:32)
[2024-08-17] MEDS: COZAAR 50 MG PO (07:32)
[2024-08-17] MEDS: ASPIR LOW (ENTERIC COATED) 81 MG PO (07:32)
[2024-08-17] MEDS: LASIX 40 MG IV (07:32)
[2024-08-17 07:33] LABS: Glucose - Point of Care 109 mg/dl (70-99)
--- NOTE | 2024-08-17 08:41 | W.PN.CD ---
Today's Communication / Plan
-
coreg 6.25 mg bid starting
cath today
Entresto pricing
Impression / Plan
-
Acute on chronic HFrEF EF 30-35%
- echo below
- cath today
-likely multifactorial in this patient with COPD/current smoker, recent suspected bronchitis, and now with concern for acute HF (type unknown) based on CXR, BNP, weight gain/edema. Severe HTN may have contributed.
-Cont IV diuresis
- increase losartan
- GDMT: start Jardiance on d/c her preference, Entresto pricing, starting coreg 6.25 mg bid, spironolactone adding tomorrow
HTN:
-start coreg
- Entresto pricing likely start tomorrow
Abnormal troponin:
-suspect acute, non ischemic myocardial injury in setting of severe HTN, possible CHF
- will set up for cath given new HFrEF
DM2 on insulin:
-monitor sugars
Smoker:
-recommend total cessation
hx CVA:
-continue ASA, statin
-hx PFO closure
Data:
Ech August 17, 2024: CONCLUSIONS
Normal LV size with moderately reduced systolic function.
LVEF is approximately 30-35% by visual estimation. Global diffuse hypokinesis.
Stage II diastolic dysfunction suggestive of abnormal relaxation and increased
filling pressures.
Normal right ventricular size and function.
Moderate to severe mitral regurgitation.
Mild to moderate tricuspid regurgitation.
Estimated pulmonary artery pressure of 37 mmHg assuming a right atrial pressure
of 3 mmHg.
Well seated #25 Amplatzer PFO Occluder device seen without evidence of shunting
by color flow.
Compared to prior from April 25, 2023, LVEF is now moderately reduced,
previously normal, there is new moderate to severe MR and new mild to moderate
TR.
Echo 04/25/23Normal left ventricular size with mild concentric remodeling and normal left ventricular systolic function. Left ventricular ejection fraction is 63% by Strickland's method. Well seated, normally functioning #25 Amplatzer PFO Occluder
device seen without evidence of shunting by color flow and negative bubble study.
Physical Exam
Vital Signs/Labs
Vital Signs
Temp Pulse Resp BP Pulse Ox
98.1 F 101 18 190/107 97
08/17/24 07:00 08/17/24 07:18 08/17/24 07:18 08/17/24 07:00 08/17/24 07:18
08/16/24 08/17/24 08/18/24
06:59 06:59 06:59
Actual Weight 124 lb 8 oz 121 lb 3 oz
08/15/24 06:52
Magnesium 1.9 mg/dl (1.6-2.3) 08/15/24 06:52
Triglycerides 76 mg/dl (10-149) 08/15/24 06:52
LDL Cholesterol, Calc 21 mg/dl 08/15/24 06:52
VLDL Cholesterol, Calc 15 mg/dl (0-30) 08/15/24 06:52
HDL Cholesterol 62 mg/dl 08/15/24 06:52
08/14/24
16:14
Icw-E-Cekungkckim Pept 3250
LAB Results
08/14/24 08/15/24 08/16/24
16:14 06:52 09:07
Troponin I 0.067 H* 0.079 H* 0.109 H*
08/16/24 08/17/24
17:11 01:14
Troponin I 0.248 H* 0.219 H*
Physical Exam
Constitutional: No acute distress and Comfortable
EENT: Anicteric
Cardiovascular: Rhythm & rate is regular and Pedal edema is absent
Respiratory: Respiratory effort normal and Lungs clear to auscul.
GI: Soft
Neuro/Psych: AO x 3
Data Reviewed
-
Date of Service: August 17, 2024
EKG: Tracing Personally Visualized and interpreted (sr)
Echo: Tracing Personally Visualized and interpreted
Labs: Labs Reviewed by me
[2024-08-17] MEDS: PT'S OWN INSULIN PUMP - NovoLOG SC ×2 (09:50→12:14)
[2024-08-17] MEDS: COREG 6.25 MG PO (10:42)
[2024-08-17 11:20] LABS: HCG, Urine Qualitative Screen Negative
[2024-08-17 12:10] LABS: Glucose - Point of Care 114 mg/dl (70-99)
--- NOTE | 2024-08-17 12:18 | CM ---
Addendum entered by Fara Martínez RN 08/17/24 16:48:
Spoke with pt and Mal .
Mal will drive her home.
PLAN Home no needs
Original Note:
Pt for a cardiac cath today.
Pt and Mal notified that [facility] of Entresto is covered and free.
Pt said she was on Farixga in past and does not want that med at dc.
Pt to inform MD of above .
unsure pt will need ant VN at dc.
PLAN Home no anticipated needs
--- NOTE | 2024-08-17 12:27 | W.PN.HOSP.TC ---
Today's Communication/Plan
-
Cardiac cath
Check iron studies and monitor hemoglobin
Continue IV diuresis
Initiated on ARB
Monitor renal function closely
GDMT, final cardiovascular regimen to be determined
Assessment / Plan
Assessment / Plan
Ms. Robbins is a 48-year-old female with a medical history of cryptogenic CVA (status post PFO closure), recent COPD diagnosis, current smoker attempting to quit, and IDDM (with insulin pump) who presented with lower extremity and abdominal swelling
and discomfort with associated shortness of breath for approximately 2 days prior to arrival. She has also been experiencing a nonproductive cough. She reports abrupt weight gain as well. She was recently diagnosed with COPD after outpatient PFTs
and started Trelegy. She is also attempting to quit smoking and has been started on Chantix. She has been afebrile and moderately hypertensive. She had elevated BNP and chest x-ray showed pulmonary edema. She has been started on diuresis with IV
Lasix and admitted for further evaluation and management of suspected new onset heart failure.
Heart failure:
- Suspected, with new onset, unknown type. Echo 08/17: LVEF 30-35%, global hypokinesis, stage II diastolic dysfunction, moderate to severe MR, mild to moderate TR
Plan is for cardiac cath on 08/17
- Troponins elevated but stable, do not suspect ischemic etiology, likely due to uncontrolled hypertension
- Diuresing appropriately, weight is down approximately 3.5 kg so far this admission
- Continue aggressive diuresis with Lasix 40 mg IV twice daily, monitor I's and O's and daily weights
- Afterload reduction with losartan 25 mg daily
-GDMT to be determined according to ongoing workup
Hypertensive urgency:
- Likely has had undiagnosed chronic hypertension, not on antihypertensive regimen at home
- Started on losartan 25 mg p.o. daily, monitor BP and adjust regimen as needed
- Additional IV enalaprilat as needed for SBP greater than 180
Chronic anemia, microcytosis
Patient reports recent negative Cologuard. No recent colonoscopy.
Check iron studies
Follow hemoglobin level
IDDM:
- Patient has insulin pump in place
- Continue Accu-Cheks
COPD:
- Recent diagnosis, no evidence of acute exacerbation
- Started on Trelegy at home, will continue Trelegy inpatient which she brought from home
DVT prophylaxis: Lovenox
CODE STATUS: Full code
Total time spent on today's encounter was 42 minutes
Anticipated Discharge: 24 - 48 hours
Subjective/Interval History
-
Date of Service: August 17, 2024
Objective Data
-
Labs:
Laboratory Results
08/17/24 08/17/24
10:57 11:52
Sodium Cancelled Pending
Potassium Cancelled Pending
Chloride Cancelled Pending
Carbon Dioxide Cancelled Pending
BUN Cancelled Pending
Creatinine Cancelled Pending
Glucose Cancelled Pending
Calcium Cancelled Pending
Vital Signs:
Vital Signs
Temp Pulse Resp BP Pulse Ox
98.1 F 105 16 139/76 95
08/17/24 11:00 08/17/24 11:00 08/17/24 11:00 08/17/24 11:00 08/17/24 11:00
I&O
08/16/24 08/17/24 08/18/24
06:59 06:59 06:59
Intake Total 1580 / 1580 1520 / 1520
Output Total 1450 / 1450 3150 / 3150
Balance 130 / 130 -1630 / -1630
Physical Exam
-
General: Well Developed and No Apparent Distress
HEENT: Normocephalic, Atraumatic and Moist Mucous Membranes
Respiratory: Clear to Auscultation
Cardiac: Regular Rhythm and S1/S2; Negative Murmur, Rub or Gallop
GI: Soft, Nontender, Nondistended and Normal Bowel Sounds; Negative Organomegaly
Rectal: Deferred by Provider
Musculoskeletal: No Clubbing, No Cyanosis and No Edema
Skin: Negative Rash
Neuro: Nonfocal/Grossly Intact
--- NOTE | 2024-08-17 13:27 | ITS.CL.CATH ---
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
Cardiac Catheterization
Procedure Report:
CARDIAC CATHETERIZATION REPORT
Date of Procedure: 08/17/2024
Referring: Kartik Nazario M.D.
INDICATION: New cardiomyopathy.
PROCEDURE:
1. Left heart catheterization
2. Coronary angiography.
A total of 21 minutes of procedural/moderate sedation was utilized. An independent medical insurance verifier was present to assist with and help manage the patient's level of consciousness and physiologic status.
ACCESS:
1. 6 Hebrew right right artery using a modified Seldinger technique.
CATHETERS:
1. 5 Hebrew JL.
2. 5 Hebrew JL 3 point.
HEMODYNAMIC DATA
Weight (kg): 54.9
AO (s/d/x, mmHg): 103/60/79
LV (s/x mmHg): 107/12
LEFT VENTRICULOGRAPHY: Not performed. An Amplatzer PFO device is observed in good position.
CORONARY ANGIOGRAPHY
Dominance: Right.
Left Main: Normal size, bifurcating vessel. There is a very mild tapering towards the distal aspect.
LAD: Normal size vessel giving rise to 1 significant diagonal. There is no coronary artery disease.
Ramus: Congenitally absent.
Circumflex: Normal size vessel giving rise to 1 significant obtuse marginal. There is a 50% lesion in the ostium of the proximal circumflex. There is a 40-50% lesion in the proximal margin of the obtuse marginal before it bifurcates into 2
daughter branches.
RCA: Normal size, dominant vessel. There is no coronary artery disease.
INTERVENTION(S)
None.
Closure Device: Vascular band.
Radiation (mGy): 167.46
DAP (cm2.Gy): 13.7380
Fluoroscopy time (minutes): 2.5
CONCLUSIONS
1. Right dominant circulation with a 50% lesion in the ostium of the proximal circumflex and a 40-50% lesion in the proximal margin of the obtuse marginal.
2. Normal filling pressures (LVEDP = 12 mmHg at 54.9 kg).
RECOMMENDATIONS:
1. Expectant management after cardiac catheterization via right radial approach.
2. Limited weight bearing on the right wrist for one week.
3. OMT/GDMT as hemodynamics will tolerate.
4. Continue aggressive primary prevention with high-dose, high potency statin. Increase rosuvastatin to 20 mg daily. Goal LDL <55.
Copy to: Kartik Nazario M.D., Kurtis López DMagi.
Molina Zapien DO, FACC, FACP
[2024-08-17] MEDS: NSS 1000 IV (14:12)
--- NOTE | 2024-08-17 14:31 | PTCARENOTE ---
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 Pt has 2 R band on R wrist. Proximal R band with 8cc, distal with 6cc. Pt had small amount of bleeding at site. Notified TALENT SOLUTIONS MANAGER, instructed to removed 2 cc from proximal band and then follow ordered protocol for both R band at
the same time. Pt BP 80s/50s, asymptomatic but pale. TALENT SOLUTIONS MANAGER and aware. Post-procedure IVF ordered and administered at 83ml/hr into R wrist IV. Pt ordered lunch and is resting comfortably in bed, no complaints at this time.
[2024-08-17 14:36] LABS: Ferritin 13.2 ng/ml (6.24-137)
[2024-08-17] MEDS: PT'S OWN INSULIN PUMP - NovoLOG 3.55 UNIT SC (15:30)
--- NOTE | 2024-08-17 16:22 | W.DCSUMMARY ---
Discharge Summary
Discharge Data
Date of Admission: 08/14/24
Date of Discharge: 08/17/24
-
Pending Results: Yes (Iron level)
Hospital Course
Ms. Robbins is a 48-year-old female with a medical history of cryptogenic CVA (status post PFO closure), recent COPD diagnosis, current smoker attempting to quit, and IDDM (with insulin pump) who presented with lower extremity and abdominal swelling
and discomfort with associated shortness of breath for approximately 2 days prior to arrival. She has also been experiencing a nonproductive cough. She reports abrupt weight gain as well. She was recently diagnosed with COPD after outpatient PFTs
and started Trelegy. She is also attempting to quit smoking and has been started on Chantix. She has been afebrile and moderately hypertensive. She had elevated BNP and chest x-ray showed pulmonary edema. She has been started on diuresis with IV
Lasix and admitted for further evaluation and management of suspected new onset heart failure.
Heart failure:
- Suspected, with new onset, unknown type. Echo 08/17: LVEF 30-35%, global hypokinesis, stage II diastolic dysfunction, moderate to severe MR, mild to moderate TR
- Cardiac cath 08/17/24
1. Right dominant circulation with a 50% lesion in the ostium of the proximal circumflex and a 40-50% lesion in the proximal margin of the obtuse marginal.
2. Normal filling pressures (LVEDP = 12 mmHg at 54.9 kg).
RECOMMENDATIONS:
1. Expectant management after cardiac catheterization via right radial approach.
2. Limited weight bearing on the right wrist for one week.
3. OMT/GDMT as hemodynamics will tolerate.
4. Continue aggressive primary prevention with high-dose, high potency statin. Increase rosuvastatin to 20 mg daily. Goal LDL <55.
Chronic anemia, microcytosis
Patient reports recent negative Cologuard. No recent colonoscopy.
Check iron studies, pending at discharge time
Follow hemoglobin level
IDDM:
- Patient has insulin pump in place
- Continue Accu-Cheks
COPD:
- Recent diagnosis, no evidence of acute exacerbation
- Started on Trelegy at home, will continue Trelegy inpatient which she brought from home
DVT prophylaxis: Lovenox
CODE STATUS: Full code
Discharge Plan
-
Patient Disposition: Home (Routine Discharge)
Discharge Diagnosis/Procedures: Acute HFrEF
Non-ischemic cardiomyopathy
Procedure 08/17/2024: Cardiac catheterization
Condition: Good
Diet: 2 Gram Sodium
Activity: No strenuous activity
Additional Activity: See attached instructions.
Driving Restrictions: No driving for 24 hours
Bathing Restrictions: None
Blood Work: BMP 1 week, lab slip sent electronically to [facility]- call cardiology if you need it sent elsewhere
Specialty Instructions: Weigh Daily- Call MD for wt gain/loss 3 lbs overnight/5 lbs in 1 week
Instructions: *CBC Heart Failure Instructions
Stand Alone Forms: DC Instructions- Cath/EP Lab
Referrals:
Ling Recinos CRNP [Specified Professional Personl, Cardiology] - 08/31/24 10:40 am
Kurtis López DO [Family Provider, Family Practice]
Prescriptions:
New
Jardiance 10 mg tablet
10 mg PO DAILY Qty: 30 2RF
Entresto 24-26 mg tablet
1 tab PO BID Qty: 60 1RF
carvedilol 6.25 mg Tablet
6.25 mg PO BID Qty: 60 1RF
furosemide 40 mg Tablet
40 mg PO MOWEFR Qty: 30 0RF
varenicline tartrate 0.5 mg Tablet
0.5 mg PO DAILY Qty: 30 0RF
Continued
rosuvastatin 10 MG tablet
10 mg PO DAILY
cyanocobalamin (vitamin B-12) 1,000 mcg Tablet, Sublingual
1,000 mcg SUBLINGUAL DAILY
diphenhydramine HCl [Benadryl] 25 ng Capsule
75 mg PO HS PRN (Reason: Sleep)
naratriptan 2.5 mg tablet
2.5 mg PO BIDPRN PRN (Reason: migraine)
Nurtec ODT 75 mg tablet,disintegrating
75 mg PO Q48H
aspirin 81 mg Tablet,Delayed Release (Dr/Ec)
81 mg PO DAILY
insulin aspart U-100 100 unit/mL Solution
0 unit continuous subcutaneous infusion .INSULIN PUMP
Patient Comments:
08/14/2024, pt. places 200 units into her insulin pump and replaces it Q72H.
polyethylene glycol 3350 [Miralax] 17 gram Powder In Packet
17 g PO Q48H
acetaminophen [Tylenol Extra Strength] 500 mg Tablet
1,500 mg PO BID
albuterol sulfate 90 mcg/actuation Hfa Aerosol Inhaler
2 puff INHALATION R Q4HPRN PRN (Reason: sob)
Headache Relief (OAM-mgsl-eff) 250-250-65 mg Tablet
1 tab PO BID
varenicline tartrate 0.5 mg tablet
0.5 mg PO DAILY
Patient Comments:
08/14/2024, pt. is currently taking 1 tablet daily, but starting on Saturday (08/17/2024) will be taking BID.
Trelegy Ellipta 200-62.5-25 mcg Blister With Device
2 inh INHALATION R DAILY
melatonin 10 mg Tablet,Chewable
20 mg PO HS
Women's One Daily
1 tab PO DAILY
albuterol sulfate 2.5 mg /3 mL (0.083 %) solution for nebulization
2.5 mg inhalation R Q4HPRN PRN (Reason: shortness of breath or wheezing)
Discharge Orders:
Discharge Patient (As Directed); Ordered 08/17/24
Ordered By: Fredy Monreal
Discharge Date and Time
Print Language: UPPER SORBIAN
[2024-08-17 16:29] LABS: Glucose - Point of Care 392 mg/dl (70-99)
[2024-08-17 19:01] LABS: Blood Urea Nitrogen 17 mg/dl (7-17); Calcium 8.8 mg/dl (8.4-10.2); Carbon Dioxide 24 mmol/L (22-30); Chloride 107 mmol/L (98-107); Estimated Creatinine Clearance 57 ml/min; Glucose 107 mg/dl (70-99); Iron 29 ug/dl (37-170); Potassium 3.9 mmol/L (3.5-5.1); Sodium 138 mmol/L (135-145); eGFR > 60.00
[2024-08-17 19:10] LABS: Percent Saturation 6 % (20-50); Total Iron Binding Capacity 443 ug/dl (265-497)
--- NOTE | 2024-08-18 08:43 | W.HF.CON ---
Heart Failure
- LV Function
Left ventricular function study result: LV Ejection fraction </= 35%
Ejection Fraction Percentage: 30-35
- ARNI
Patient already on ARNI: Yes
- ACEI/ARB
Patient already on ACEI/ARB: No
Heart Failure ACEI/ARB Not Indicated: Patient ordered/on ARNI
- Beta Francisco J
Patient already on Evidence Based Beta Francisco J: Yes
- Mineralocorticord Receptor Antagonist
Patient already on MRA: No
Heart Failure MRA Contraindication: Hypotension
- SGLT-2 Inhibitor
Patient already on SGLT-2 Inhibitor: Yes
- NYHA CHF Classification
NYHA CHF Classification Level: Class III - Symptoms w/ min exertion, interferes w/ nml daily activity
- ACC/AHA Stage
ACC/AHA Stage: Stage C: Symptomatic Heart Failure
== END 2024-08-17 17:42 | disposition home or self-care (01) | DRG 286 ==
LOC: 4 EAST ACU 21:54
PROVIDERS: Internal Medicine Cardiovascular Disease; Student in an Organized Health Care Education/Training Program; ADMITTING PHYSICIAN Internal Medicine; ATTENDING PHYSICIAN Internal Medicine; CONSULT PHYSICIAN Internal Medicine Cardiovascular Disease; EMERGENCY PHYSICIAN Emergency Medicine; FAMILY PHYSICIAN Family Medicine
PROC: B2111ZZ Fluoroscopy of Multiple Coronary Arteries using Low Osmolar Contrast (ICD-10-PCS; 2024-08-17)
PROC: 4A023N7 Measurement of Cardiac Sampling and Pressure, Left Heart, Percutaneous Approach (ICD-10-PCS; 2024-08-17)
DX: I11.0 Hypertensive heart disease with heart failure (principal); I50.23 Acute on chronic systolic (congestive) heart failure; J44.9 Chronic obstructive pulmonary disease, unspecified; E78.00 Pure hypercholesterolemia, unspecified; F17.210 Nicotine dependence, cigarettes, uncomplicated; G47.00 Insomnia, unspecified; G43.909 Migraine, unspecified, not intractable, without status migrainosus; I08.1 Rheumatic disorders of both mitral and tricuspid valves; I5A Non-ischemic myocardial injury (non-traumatic); I42.8 Other cardiomyopathies; E11.9 Type 2 diabetes mellitus without complications; I16.0 Hypertensive urgency; Z96.41 Presence of insulin pump (external) (internal); Z79.4 Long term (current) use of insulin; Z87.74 Personal history of (corrected) congenital malformations of heart and circulatory system; Z86.73 Personal history of transient ischemic attack (TIA), and cerebral infarction without residual deficits; Z79.82 Long term (current) use of aspirin
CPT/HCPCS: 71046; 80048; 80053; 80061; 80076; 81003; 81015; 81025; 82570; 82728; 82962; 83540; 83550; 83735; 83880; 84100; 84156; 84443; 84484; 85025; 85027; 93005; 93306; 93458; 94640; 96361; 99152; 99285; C1894; Q9967

== ENCOUNTER → 2024-09-04 09:45 | Outpatient (REF) | payer OTHER, SELFPAY | LOC: DHSLP 09:45 | PROVIDERS: ATTENDING PHYSICIAN Internal Medicine; FAMILY PHYSICIAN Family Medicine | DX: G47.00 Insomnia, unspecified (principal); G47.8 Other sleep disorders; R06.83 Snoring | CPT/HCPCS: 95810 ==

== ENCOUNTER → 2024-12-08 08:38 | Outpatient (REF) | payer OTHER, SELFPAY | LOC: MRI 08:38 | PROVIDERS: ATTENDING PHYSICIAN Student in an Organized Health Care Education/Training Program; FAMILY PHYSICIAN Nurse Practitioner Family | DX: I42.8 Other cardiomyopathies (principal) | CPT/HCPCS: 75557; 75565; A9585 ==

== ENCOUNTER 2025-02-08 14:27 | Emergency (ER) | payer OTHER, SELFPAY ==
[2025-02-08 14:42] VITALS: BP 166/77
[2025-02-08 15:17] LABS: Hematocrit 37.3 % (37.0-47.0); Hemoglobin 12.3 g/dL (12.0-16.0); Mean Corp Hgb Conc. 33.0 g/dL (33.0-37.0); Mean Corpuscular Volume 85.9 fL (81.0-99.0); Nucleated Red Blood Cells % 0 %; Platelet Count 292 10^3/uL (130-400); Red Cell Dist. Width 15.3 % (11.5-14.5)
[2025-02-08 15:31] LABS: ALT (SGPT) 26 U/L (0-35); AST (SGOT) 32 U/L (14-36); Albumin 4.5 g/dl (3.5-5.0); Alkaline Phosphatase 97 U/L (38-126); Blood Urea Nitrogen 16 mg/dl (7-17); Calcium 9.2 mg/dl (8.4-10.2); Carbon Dioxide 21 mmol/L (22-30); Chloride 103 mmol/L (98-107); Glucose 289 mg/dl (70-99); Potassium 4.9 mmol/L (3.5-5.1); Sodium 135 mmol/L (135-145); Total Protein 7.3 g/dl (6.3-8.2); eGFR > 60.00
[2025-02-08 15:50] LABS: Troponin I < 0.012 ng/ml
--- NOTE | 2025-02-08 16:21 | EDRN ---
Pt was coughing and feeling fatigue and weakness and went to on Fri or Sat. and tested positive for flu. + Flu. Pt arrives for increasing SOB. Pt is on Oxygen due to COPD (usually has only at night 1lpm via NC?). When has coughing fit, gets very
SOB and unable to even wear her oxygen. Hardly able to breathe last night or wear oxygen.
[2025-02-08 16:25] VITALS: BP 125/80
[2025-02-08 16:26] VITALS: BMI 27.3
[2025-02-08] MEDS: DUONEB 3 ML INH (16:38)
--- NOTE | 2025-02-08 16:55 | ED.GENMED ---
History of Present Illness
General
Chief Complaint: Cold/Flu/URI Symptoms
Source: patient
Time Seen by Provider: 02/08/25 16:27
Nursing documentation reviewed up to this point in time: agreed with
History of Present Illness
History of Present Illness:
Patient is a 49-year-old female with past medical history of stroke, insulin-dependent diabetes, COPD, smoker hyperlipidemia presents to the ER for evaluation. She was diagnosed with the flu this weekend at urgent care. She started with cough and
bodyaches 4 days ago. She has had fevers as high as 102. She presents to the ER for shortness of breath and wheezing. She does have an albuterol inhaler at home she has a nebulizer but has no albuterol Nebules. As documented she is a smoker.
Past History
Past History
ED Past Medical History: CVA (X 2), HTN, Hypercholesterolemia, IDDM and Other (migraines); Negative CAD
ED Past Surgical History: Cardiac (Loop recorder and then it was removed, Closure of PFO), , Gynecological (Lap for precancerous cervical cells, ) and Orthopedic (Left great toe surgery, )
Social History
Tobacco: Smoker
Alcohol: Occasional
Drug: None
Personal:
Living: with family
Employment: Employed
Family History
Family History: Adopted
Phy Exam
General Physical Exam
General Presentation: no apparent distress
General age: appears stated age
General Skin: warm and dry
General Habitus: normal
General Mental: alert
General Hydration: appears well hydrated
Cardiovascular Exam
Cardiovascular Exam: regular rate/rhythm, no murmur and normal peripheral pulses
Pulmonary Exam
Pulmonary Exam: other (Inspiratory /expiratory wheezing)
Neurological Exam
Neurological Exam: alert and oriented x3
Musculoskeletal Exam
Musculoskeletal Exam: full ROM
Skin Exam
Skin Exam: normal color
Psychiatric Exam
Psychiatric Exam: normal mood/affect
Sepsis
Sepsis Screening
Sepsis Assessment: Sepsis Ruled Out
Sepsis Screen
Sepsis Screen: Sepsis Ruled Out
Date: 02/08/25
Time: 20:39
Course
Orders/Labs/Results
Orders:
Orders
02/08/25 14:45
Chest [CR Chest - 2 Views ] Urgent
Comment:
Reason For Exam: SOB
02/08/25 14:47
EKG- Treatment ONCE
IV Insert/Care/Rem.- Treatment PRN
O2 Therapy [RESP] Urgent
Titrate/Wean O2 to maintain O2 sat greater than (%): 93
Special Instructions: TO MAINTAIN CONTINUOUS O2 SATS >/= 93%
Pulse Ox/cont/shift [RESP] Urgent
Quantity: 1
Special Instructions: continuous pulse ox
02/08/25 14:59
Complete Blood Count/With Diff Urgent
Comprehensive Metabolic Panel Urgent
NT-proBNP Urgent
Troponin I Urgent
02/08/25 16:33
Ipratropium/Albuterol Sulfate [Duoneb] 3 ml .ROUTE .STK-MED ONE
02/08/25 16:37
Ipratropium/Albuterol Sulfate [Duoneb] 3 ml INH R NOW ONE
02/08/25 17:06
Albuterol Nebs [Ventolin Nebules] 2.5 mg INH R NOW STA
02/08/25 18:47
Albuterol Nebs [Ventolin Nebules] 2.5 mg INH R NOW STA
Abnormal Lab Results
02/08/25
14:59
RDW 15.3 H %
(11.5-14.5)
Absolute Neuts (auto) 7.4 H 10^3/uL
(1.4-6.5)
Absolute Monos (auto) 0.7 H 10^3/uL
(0.1-0.6)
Lymphocytes % 17.3 L %
(20.5-51.1)
Carbon Dioxide 21 L mmol/L
(22-30)
Glucose 289 H mg/dl
(70-99)
02/08/25 14:59
02/08/25 14:59
Vital Signs
Initial and Last Documented VS:
Initial Vital Signs
Temp Pulse Resp BP Pulse Ox
97.5 F 102 28 166/77 97
02/08/25 14:42 02/08/25 14:42 02/08/25 14:42 02/08/25 14:42 02/08/25 14:42
Last Documented Vital Signs
Temp Pulse Resp BP Pulse Ox
98.3 F 96 24 125/80 96
02/08/25 16:25 02/08/25 16:25 02/08/25 16:25 02/08/25 16:25 02/08/25 17:05
MDM/Problems Addressed
Differential Diagnosis Includes:
Not limited to COPD exacerbation secondary to influenza
MDM/Problems Addressed:
49-year-old female with history of COPD recently diagnosed with flu several days ago presents for shortness of breath. Patient presents wheezing. Initial sugar was 289 however during my exam patient's own Dexcom was reading 172. Patient is not
hypoxic nebs given.
Patient is afebrile with a normal white count normal renal function, in no acute distress chest x-ray negative.
Patient feeling better she is in no acute distress not hypoxic. She voiced concern about steroids given the fact that this raises her blood sugar being a diabetic. She had this happen in the past. Will hold off on steroids. I did send a new
prescription for albuterol Nebules to her pharmacy along with a new inhaler.
Discussed close outpatient follow-up family doctor.
I did educate patient on smoking cessation.
Chronic conditions affecting care:
Insulin-dependent diabetic we will hold off on steroids, COPD
*Radiology
Radiology exam reviewed: radiology read reviewed
*Pulse Oximetry
SaO2: 96
Oxygen Mode of Delivery: Room air
Patient hypoxic: no
*Critical Care Note
Total Time (30-74mins, 75-104mins- exclusive of procedures): Not Applicable
ED Attending Note
-
Portions of this chart may have been created with voice recognition software.� Occasional wrong word or��sound alike� substitutions may have occurred due to the inherent limitations of voice recognition software.
Discharge Plan
Departure
Patient Disposition: Home (Routine Discharge)
Date of Disposition: 02/08/25
Time of Disposition: 20:28
Patient with high blood pressure during this ER visit?: Yes
Condition: Fair
Covid-19: Not Applicable
Discharge Problem:
Influenza, copd exacerbation
Instructions: COPD exacerbation in adults - ED (DC), Flu in adults - ED (DC)
Prescriptions:
New
albuterol sulfate 2.5 mg /3 mL (0.083 %) solution for nebulization
2.5 mg inhalation Q6H Qty: 90 0RF
albuterol sulfate 90 mcg/actuation HFA aerosol inhaler
2 inh inhalation Q6H PRN (Reason: shortness of breath or wheezing) Qty: 6.7 0RF
No Action
rosuvastatin 10 MG tablet
10 mg PO DAILY
cyanocobalamin (vitamin B-12) 1,000 mcg Tablet, Sublingual
1,000 mcg SUBLINGUAL DAILY
diphenhydramine HCl [Benadryl] 25 ng Capsule
75 mg PO HS PRN (Reason: Sleep)
naratriptan 2.5 mg tablet
2.5 mg PO BIDPRN PRN (Reason: migraine)
Nurtec ODT 75 mg tablet,disintegrating
75 mg PO Q48H
aspirin 81 mg Tablet,Delayed Release (Dr/Ec)
81 mg PO DAILY
insulin aspart U-100 100 unit/mL Solution
0 unit continuous subcutaneous infusion .INSULIN PUMP
Patient Comments:
08/14/2024, pt. places 200 units into her insulin pump and replaces it Q72H.
polyethylene glycol 3350 [Miralax] 17 gram Powder In Packet
17 g PO Q48H
acetaminophen [Tylenol Extra Strength] 500 mg Tablet
1,500 mg PO BID
albuterol sulfate 90 mcg/actuation Hfa Aerosol Inhaler
2 puff INHALATION R Q4HPRN PRN (Reason: sob)
Headache Relief (DSD-esxg-thj) 250-250-65 mg Tablet
1 tab PO BID
varenicline tartrate 0.5 mg tablet
0.5 mg PO DAILY
Patient Comments:
08/14/2024, pt. is currently taking 1 tablet daily, but starting on Saturday (08/17/2024) will be taking BID.
Trelegy Ellipta 200-62.5-25 mcg Blister With Device
2 inh INHALATION R DAILY
melatonin 10 mg Tablet,Chewable
20 mg PO HS
Women's One Daily
1 tab PO DAILY
albuterol sulfate 2.5 mg /3 mL (0.083 %) solution for nebulization
2.5 mg inhalation R Q4HPRN PRN (Reason: shortness of breath or wheezing)
Jardiance 10 mg tablet
10 mg PO DAILY Qty: 30 2RF
Entresto 24-26 mg tablet
1 tab PO BID Qty: 60 1RF
carvedilol 6.25 mg Tablet
6.25 mg PO BID Qty: 60 1RF
furosemide 40 mg Tablet
40 mg PO MOWEFR Qty: 30 0RF
varenicline tartrate 0.5 mg Tablet
0.5 mg PO DAILY Qty: 30 0RF
Referrals:
Kurtis López DO [Family Provider, Family Practice]
Stand Alone Forms: Return to Work
Activity Restrictions/Additional Instructions:
As discussed, use your albuterol nebulizers/inhalers as previously prescribed. Stay well-hydrated. Stop smoking.
Follow-up with your family doctor in the next several days for reevaluation of your symptoms and return if any worsening of symptoms.
Interventions
Interventions:
*General Assessment Last Done: 02/08/25 16:26
*Neglect/Abuse Screening Last Done: 02/08/25 16:26
*ED COVID-19 Vaccine History Last Done: 02/08/25 16:26
*ED Influenza Vaccine History Last Done: 02/08/25 16:26
[facility] Fall Risk Assessment Tool Last Done: 02/08/25 16:26
*Risk Screen - Suicide (C-SSRS) Last Done: 02/08/25 16:26
*Nursing Disposition Last Done: 02/08/25 20:32
ED- Pulmonary Assessment Last Done: 02/08/25 16:29
Discharge Date and Time
Print Language: ERITREAN
--- NOTE | 2025-02-08 17:05 | EDRN ---
Pt has glucose monitor depacon was 172 per Cassandra Hayes EVAPORATOR REPAIRER at this time.
[2025-02-08] MEDS: VENTOLIN NEBULES 2.5 MG INH ×2 (17:11→19:32)
--- NOTE | 2025-02-08 18:07 | EDRN ---
Pt up to BR at this time. Pt states she feels no better post albuterol and duonebs. Pt just returned from xray.
== END 2025-02-08 20:57 | disposition home or self-care (01) ==
LOC: EMR 14:27
PROVIDERS: Emergency Medicine; EMERGENCY PHYSICIAN Emergency Medicine; FAMILY PHYSICIAN Family Medicine
DX: J11.1 Influenza due to unidentified influenza virus with other respiratory manifestations (principal); J44.1 Chronic obstructive pulmonary disease with (acute) exacerbation; E78.00 Pure hypercholesterolemia, unspecified; I10 Essential (primary) hypertension; F17.200 Nicotine dependence, unspecified, uncomplicated; Z86.73 Personal history of transient ischemic attack (TIA), and cerebral infarction without residual deficits
CPT/HCPCS: 99283; 71046; 80053; 83880; 84484; 85025

== ENCOUNTER → 2025-02-19 15:58 | Outpatient (REF) | payer OTHER, SELFPAY | LOC: RCS 15:58 | PROVIDERS: ATTENDING PHYSICIAN Student in an Organized Health Care Education/Training Program; FAMILY PHYSICIAN Family Medicine | DX: I42.8 Other cardiomyopathies (principal) | CPT/HCPCS: 93308; 93321; 93325 ==